=== PATIENT | female | born 1970 | race Caucasian/White ===

== ENCOUNTER → 2016-04-30 | Outpatient (CLI) | payer BC | LOC: M HL 10:49 | PROVIDERS: ATTEND Family Medicine | DX: E11.65 Type 2 diabetes mellitus with hyperglycemia (principal) ==

== ENCOUNTER 2016-07-10 18:00 | Emergency (ER) | payer BC ==
[~2016-07-10] VITALS: Ht 172.7 cm; Wt 77.1 kg
[2016-07-10] MEDS ORDERED: GLIP5TAB8 (18:13)
[2016-07-10] MEDS ORDERED: METF1000 (18:13)
[2016-07-10] MEDS ORDERED: LISI10TA4 (18:13)
[2016-07-10] MEDS ORDERED: ONDANSETRON 4MG/2ML VIAL (J2405) IV ONE (20:45)
[2016-07-10] MEDS ORDERED: KETOROLAC 30 MG/ML VIAL (J1885) IV ONE (20:45)
[2016-07-10] MEDS ORDERED: NS 1,000 ML IV ONE (20:45)
[2016-07-10 21:21] LABS: BASO # 0.1 K/mm3 (0.0-0.2); BASO % 0.5 % (0.0-1.0); EOS # 0.6 K/mm3 (0.0-0.50); EOS % 5.5 % (0.0-3.0); LARGE UNSTAINED CELL # 0.2 K/mm3 (0.0-0.4); LARGE UNSTAINED CELL % 1.4 % (0.0-4.0); LYMPH # 3.5 K/mm3 (1.5-4.5); LYMPH % 30.1 % (24.0-44.0); MEAN CORPUSCULAR HEMOGLOBIN 28.9 pg (27.0-33.0); MEAN CORPUSCULAR HGB CONC 33.1 g/dl (32.0-36.5); MEAN CORPUSCULAR VOLUME 87.4 fl (80.0-96.0); MONO # 0.5 K/mm3 (0.0-0.8); MONO % 4.5 % (0.0-5.0); NEUTROPHILS # 6.5 K/mm3 (1.8-7.7); NEUTROPHILS % 58.1 % (36.0-66.0); PLATELET COUNT, AUTOMATED 328 k/mm3 (150-450); RED CELL DISTRIBUTION WIDTH 13.3 % (11.5-14.5); WHITE BLOOD COUNT 11.2 K/mm3 (4.0-10.0)
[2016-07-10 21:54] LABS: ALBUMIN 3.7 GM/DL (3.2-5.2); ALBUMIN/GLOBULIN RATIO 1.16 (1.00-1.93); ALKALINE PHOSPHATASE 120 U/L (45-117); ALT/SGPT 25 U/L (12-78); ANION GAP 9 MEQ/L (8-16); AST/SGOT 8 U/L (15-37); BILIRUBIN,DIRECT 0.1 MG/DL (0.0-0.2); BILIRUBIN,TOTAL 0.3 MG/DL (0.2-1.0); BLOOD UREA NITROGEN 15 MG/DL (7-18); CALCIUM LEVEL 9.2 MG/DL (8.5-10.1); CARBON DIOXIDE LEVEL 27 MEQ/L (21-32); CHLORIDE LEVEL 101 MEQ/L (98-107); CREATININE FOR GFR 0.47 MG/DL (0.55-1.02); GLOMERULAR FILTRATION RATE > 60.0 (>58); GLUCOSE, FASTING 209 MG/DL (70-105); POTASSIUM SERUM 4.1 MEQ/L (3.5-5.1); SODIUM LEVEL 137 MEQ/L (136-145); TOTAL PROTEIN 6.9 GM/DL (6.4-8.2)
--- NOTE | 2016-07-10 23:10 | REPUSA ---
CLINICAL HISTORY: Abdominal pain. TECHNIQUE: Multiple axial, sagittal and coronal CT images were obtained through the abdomen and pelvi s without administration of oral or IV contrast material. COMMENTS: The liver is of uniform attenuation without mass or defect. There is no intra or extrahepatic biliary ductal dilatation. The spleen is normal. The gallbladder is within normal limits. The pancreas is of normal contour and attenuation characteristics. 15 mm left and 10 mm right adrenal nodule is noted. The kidneys are normal in size, shape and configuration. No renal or ureteral calculi are identified. There is no hydroureter or hydronephrosis. There is no evidence for appendicitis. There is no bowel wall thickening. No evidence for small or la rge bowel obstruction. There is no evidence of abdominal ascites or lymphadenopathy. There is no evidence of intrinsic or extrinsic bladder mass. There is no pelvic ascites or lymphadeno scottie. Images of the lung bases show no evidence of pleural or parenchymal mass. There are no pleural effusi ons. The bony structures are free of lytic or blastic lesions. IMPRESSION: No acute pathology. Bilateral adrenal adenomas. Thank you for your kind referral of this patient.
[2016-07-10] MEDS ORDERED: NAPR500T PO (23:19)
[2016-07-10] MEDS ORDERED: ZOFR4TAB3 PO (23:19)
[2016-07-10 23:29] VITALS: BP 127/73
== END 2016-07-10 23:30 | disposition home or self-care (01) ==
LOC: M ED 18:56
DX: R10.9 Unspecified abdominal pain (principal)
CPT/HCPCS: 74176; 80048; 80076; 81001; 83690; 85025; 87086; 96374; 96375; 99283; J1885; J2405

== ENCOUNTER → 2016-07-20 | Outpatient (REF) | payer BC ==
[~2016-07-20] MED LIST: GLIP5TAB8; LISI10TA4; METF1000; NAPR500T PO; ZOFR4TAB3 PO
== END ==
LOC: M SFHCPLAZ 10:08
PROVIDERS: ATTEND Family Medicine
DX: R10.31 Right lower quadrant pain (principal)

== ENCOUNTER → 2016-07-26 | Outpatient (CLI) | payer BC ==
[2016-07-26 08:32] LABS: AMYLASE 32 U/L (25-115)
--- NOTE | 2016-07-26 09:37 | REP ---
RIGHT UPPER QUADRANT ULTRASOUND: Real-time sonographic evaluation of right upper quadrant performed. Gallbladder demonstrates no evidence of intraluminal sludge or calculi, wall thickening, or pericholecystic fluid. There is no intrahepatic or extrahepatic biliary dilatation, common bile duct measuring 4 mm in diameter. Liver and pancreas demonstrate homogenous echotexture with no gross mass. Right kidney demonstrates no hydronephrosis or nephrolithiasis with normal size at 12.3 cm in length. IMPRESSION: Negative right upper quadrant ultrasound. Signed by Ricky Andino MD 07/26/2016 04:49 P
[2016-07-26 10:42] LABS: CONTROL LINE HPYORI INT CTR LINE PRESENT
== END ==
LOC: M RAD 07:58
PROVIDERS: ATTEND Family Medicine
DX: R10.11 Right upper quadrant pain (principal)

== ENCOUNTER → 2016-07-27 | Outpatient (REF) | payer BC | LOC: M SFHCPLAZ 12:00 | PROVIDERS: ATTEND Family Medicine | DX: E27.8 Other specified disorders of adrenal gland (principal) ==

== ENCOUNTER → 2016-08-13 | Outpatient (CLI) | payer BC | LOC: M RAD 15:06 | PROVIDERS: ATTEND Family Medicine | DX: R10.31 Right lower quadrant pain (principal) ==

== ENCOUNTER → 2016-08-19 | Outpatient (REF) | payer BC | LOC: M SFHCPLAZ 08:36 | PROVIDERS: ATTEND Family Medicine | DX: R10.31 Right lower quadrant pain (principal) ==

== ENCOUNTER → 2016-08-24 | Outpatient (CLI) | payer BC ==
[2016-08-24 08:49] LABS: ANION GAP 9 MEQ/L (8-16); BLOOD UREA NITROGEN 8 MG/DL (7-18); CALCIUM LEVEL 8.5 MG/DL (8.5-10.1); CARBON DIOXIDE LEVEL 28 MEQ/L (21-32); CHLORIDE LEVEL 102 MEQ/L (98-107); CREATININE FOR GFR 0.59 MG/DL (0.55-1.02); GLOMERULAR FILTRATION RATE > 60.0 (>58); GLUCOSE, FASTING 216 MG/DL (70-105); POTASSIUM SERUM 4.3 MEQ/L (3.5-5.1); SODIUM LEVEL 139 MEQ/L (136-145)
== END ==
LOC: M LAB 08:00
PROVIDERS: ATTEND Family Medicine
DX: R10.31 Right lower quadrant pain (principal)

== ENCOUNTER → 2016-08-28 | Outpatient (CLI) | payer BC ==
--- NOTE | 2016-08-28 15:48 | REP ---
CT study of the thoracic spine without contrast: History: Right lower quadrant abdominal pain. Technique: Helical scanning is acquired. Contiguous 4 mm axial images are reformatted. Coronal and sagittal multiplanar re-formation images are generated and reviewed. CT findings: Thoracic vertebral body heights are preserved. Alignment is normal. Disc spaces are maintained. There is minimal discogenic spurring noted at T3-4 level and at T5-6. Minimal discogenic spurring and disc calcification is seen at T9-10. There is no evidence of fracture or collapse. No neural foraminal narrowing is seen. No bony destructive lesion is appreciated. Visualized posterior ribs are unremarkable. Visualized lung giles are clear. No evidence of thoracic disc herniation is seen. Incidental note however is made of low density somewhat nodular enlargement of the adrenal glands bilaterally. This is seen on recent CT abdomen and pelvis. Impression: Minimal degenerative disc changes. No thoracic disc herniation visible. No fracture collapse or bony destructive lesion seen. Signed by Mina Tracy MD 08/28/2016 04:40 P
== END ==
LOC: M RAD 13:03
PROVIDERS: ATTEND Family Medicine
DX: R10.9 Unspecified abdominal pain (principal)

== ENCOUNTER 2017-03-21 12:10 | Emergency (ER) | payer BC ==
[~2017-03-21] VITALS: Ht 175.3 cm; Wt 77.3 kg
[~2017-03-21 12:10] MED LIST changes: -GLIP5TAB8; +GLIP5TAB8 PO; -METF1000; +METF10004 PO
[2017-03-21] MEDS ORDERED: FLUORESCEIN OPHTH 1 MG STRIP OS ONE (13:45)
[2017-03-21] MEDS ORDERED: TETRACAINE 0.5% OPHTH SOLN 4ML OS ONE (13:45)
[2017-03-21] MEDS ORDERED: ERYTHROMYCIN OPHTH OINT OS ONE (14:00)
[2017-03-21] MEDS ORDERED: CLINDAMYCIN 150 MG CAP PO ONE (14:00)
[2017-03-21] MEDS ORDERED: CLIN150C14 PO (14:01)
[2017-03-21 14:14] VITALS: BP 174/87
== END 2017-03-21 14:30 | disposition home or self-care (01) ==
LOC: M ED 12:10
DX: H10.32 Unspecified acute conjunctivitis, left eye (principal); L03.213 Periorbital cellulitis; E11.9 Type 2 diabetes mellitus without complications; I10 Essential (primary) hypertension; Z79.4 Long term (current) use of insulin; Z79.899 Other long term (current) drug therapy

== ENCOUNTER 2017-05-23 22:33 | Emergency (ER) | payer BC | END 2017-05-24 00:55 | disposition home or self-care (01) | LOC: M ED 22:33 | DX: G57.92 Unspecified mononeuropathy of left lower limb (principal); E11.9 Type 2 diabetes mellitus without complications; I10 Essential (primary) hypertension | CPT/HCPCS: 93971 ==

== ENCOUNTER → 2017-05-24 | Outpatient (REF) | payer BC ==
[2017-05-24 19:09] LABS: CREATININE, URINE 45.6 MG/DL; MAU/CREAT RATIO 594.2 MCG/MG (0.0-30.0)
== END ==
LOC: M SFHCPLAZ 17:28
DX: E11.8 Type 2 diabetes mellitus with unspecified complications (principal)
CPT/HCPCS: 82043

== ENCOUNTER 2017-05-28 10:14 | Emergency (ER) | payer BC ==
[2017-05-28] MEDS: ONDANSETRON 4MG/2ML VIAL (J2405) IV (11:02)
[2017-05-28] MEDS: KETOROLAC 30 MG/ML VIAL (J1885) IV (11:04)
[2017-05-28] MEDS: NS 1,000 ML IV (11:07)
[2017-05-28 11:09] LABS: BASO # 0.1 10^3/uL (0.0-0.2); BASO % 0.6 % (0.0-1.0); EOS # 0.4 10^3/uL (0.0-0.50); EOS % 4.3 % (0.0-3.0); HEMATOCRIT 52.1 % (36.0-47.0); IMMATURE GRANULOCYTE % 0.3 % (0-0); LYMPH # 3.3 10^3/uL (1.5-4.5); LYMPH % 34.7 % (24.0-44.0); MEAN CORPUSCULAR HEMOGLOBIN 28.3 pg (27.0-33.0); MEAN CORPUSCULAR HGB CONC 32.6 g/dl (32.0-36.5); MEAN CORPUSCULAR VOLUME 86.7 fl (80.0-96.0); MONO # 0.6 10^3/uL (0.0-0.8); MONO % 6.2 % (0.0-5.0); NEUTROPHILS # 5.2 10^3/uL (1.8-7.7); NEUTROPHILS % 53.9 % (36.0-66.0); PLATELET COUNT, AUTOMATED 318 10^3/uL (150-450); RED BLOOD COUNT 6.01 10^6/uL (4.00-5.40); RED CELL DISTRIBUTION WIDTH 13.7 % (11.5-14.5); WHITE BLOOD COUNT 9.6 10^3/uL (4.0-10.0)
[2017-05-28 11:13] LABS: KETONE, URINE AUTO RFX NEGATIVE (NEGATIVE); LEUKOCYTE ESTERASE UR AUTO RFX NEGATIVE (NEGATIVE); NITRITE, URINE AUTO RFX NEGATIVE (NEGATIVE); RBC, URINE AUTO RFX 0 /HPF (0-3); SPECIFIC GRAVITY UR AUTO RFX 1.009 (1.002-1.035); SQUAM EPITHELIAL CELL UR AURFX 0 /HPF (0-6); WBC, URINE AUTO RFX 1 /HPF (0-3)
[2017-05-28 11:45] LABS: ALBUMIN 3.8 GM/DL (3.2-5.2); ALBUMIN/GLOBULIN RATIO 0.88 (1.00-1.93); ALKALINE PHOSPHATASE 152 U/L (45-117); ALT/SGPT 23 U/L (12-78); ANION GAP 8 MEQ/L (8-16); AST/SGOT 13 U/L (7-37); BILIRUBIN,TOTAL 0.3 MG/DL (0.2-1.0); BLOOD UREA NITROGEN 15 MG/DL (7-18); CALCIUM LEVEL 9.6 MG/DL (8.5-10.1); CARBON DIOXIDE LEVEL 27 MEQ/L (21-32); CHLORIDE LEVEL 101 MEQ/L (98-107); CREATININE FOR GFR 0.49 MG/DL (0.55-1.30); GLOMERULAR FILTRATION RATE > 60.0 (>58); GLUCOSE, FASTING 186 MG/DL (70-100); POTASSIUM SERUM 4.3 MEQ/L (3.5-5.1); SODIUM LEVEL 136 MEQ/L (136-145); TOTAL PROTEIN 8.1 GM/DL (6.4-8.2)
== END 2017-05-28 12:55 | disposition home or self-care (01) ==
LOC: M ED 10:14
DX: R10.9 Unspecified abdominal pain (principal); N39.0 Urinary tract infection, site not specified; E11.9 Type 2 diabetes mellitus without complications; Z87.891 Personal history of nicotine dependence; Z79.84 Long term (current) use of oral hypoglycemic drugs; Z79.899 Other long term (current) drug therapy
CPT/HCPCS: J2405

== ENCOUNTER → 2017-05-28 | Outpatient (CLI) | payer BC | LOC: M WHC 07:59 | DX: Z12.31 Encounter for screening mammogram for malignant neoplasm of breast (principal); G62.9 Polyneuropathy, unspecified | CPT/HCPCS: 77067 ==

== ENCOUNTER → 2017-05-28 | Outpatient (CLI) | payer BC ==
[2017-05-28 10:22] LABS: ESTIMATED AVERAGE GLUCOSE 306 MG/DL (60-110); HEMOGLOBIN A1c 12.3 %
[2017-05-28 10:23] LABS: CREATININE, URINE 32.5 MG/DL; MALB URINE SIEMENS 20.4 MG/L; MAU/CREAT RATIO 62.7 MCG/MG (0.0-30.0)
[2017-05-28 10:31] LABS: VITAMIN B12 LEVEL 422 PG/ML
[2017-05-28 10:34] LABS: FOLATE 11.1 NG/ML
== END ==
LOC: M LAB 09:09
DX: E11.8 Type 2 diabetes mellitus with unspecified complications (principal); G62.9 Polyneuropathy, unspecified
CPT/HCPCS: 82746

== ENCOUNTER 2017-06-01 15:00 | Inpatient (IN) | payer BC ==
[2017-06-01 16:13] LABS: BASO # 0.1 10^3/uL (0.0-0.2); BASO % 0.7 % (0.0-1.0); EOS # 0.5 10^3/uL (0.0-0.50); EOS % 5.1 % (0.0-3.0); HEMATOCRIT 47.5 % (36.0-47.0); HEMOGLOBIN 15.7 g/dl (12.0-16.0); IMMATURE GRANULOCYTE % 0.2 % (0-3.0); LYMPH # 3.4 10^3/uL (1.5-4.5); LYMPH % 36.3 % (24.0-44.0); MEAN CORPUSCULAR HEMOGLOBIN 28.5 pg (27.0-33.0); MEAN CORPUSCULAR HGB CONC 33.1 g/dl (32.0-36.5); MEAN CORPUSCULAR VOLUME 86.4 fl (80.0-96.0); MONO # 0.6 10^3/uL (0.0-0.8); MONO % 6.7 % (0.0-5.0); NEUTROPHILS # 4.7 10^3/uL (1.8-7.7); PLATELET COUNT, AUTOMATED 300 10^3/uL (150-450); RED CELL DISTRIBUTION WIDTH 13.5 % (11.5-14.5); WHITE BLOOD COUNT 9.2 10^3/uL (4.0-10.0)
[2017-06-01 16:23] LABS: INR 0.89; PROTHROMBIN TIME 12.1 SECONDS (12.4-14.5)
[2017-06-01 16:24] LABS: PARTIAL THROMBOPLASTIN TIME 32.1 SECONDS (26.8-37.9)
[2017-06-01 16:42] LABS: ANION GAP 4 MEQ/L (8-16); BLOOD UREA NITROGEN 16 MG/DL (7-18); CALCIUM LEVEL 8.8 MG/DL (8.5-10.1); CARBON DIOXIDE LEVEL 30 MEQ/L (21-32); CHLORIDE LEVEL 106 MEQ/L (98-107); CK-MB VALUE MASS 2.7 NG/ML (0.0-3.6); CPK CREATINE PHOSPHOKINASE 54 U/L (26-192); CREATININE FOR GFR 0.47 MG/DL (0.55-1.30); GLOMERULAR FILTRATION RATE > 60.0 (>58); GLUCOSE, FASTING 166 MG/DL (70-100); POTASSIUM SERUM 3.7 MEQ/L (3.5-5.1); SODIUM LEVEL 140 MEQ/L (136-145); TROPONIN I < 0.02 NG/ML (< 0.10)
[2017-06-01] MEDS: ASPIRIN 81 MG CHEW TABLET PO (17:10)
[2017-06-01 17:29] LABS: CHOLESTEROL LEVEL 195 MG/DL (<200); CHOLESTEROL RISK RATIO 4.875 (<5); HDL CHOLESTEROL 40 MG/DL (>40); LDL CHOLESTEROL 124.6 MG/DL (<100); NON-HDL-C 155 MG/DL; TRIGLYCERIDES LEVEL 152 MG/DL (<150)
[2017-06-01] MEDS ORDERED: GLUCOSE 4 GM CHEW TABLET PO (17:30)
[2017-06-01] MEDS ORDERED: GLUCAGON FOR INJ 1 MG VIAL (J1610) SC (17:30)
[2017-06-01] MEDS: HumaLOG INSULIN (NovoLOG) PER UNIT SC ×2 (17:30→21:00)
[2017-06-01] MEDS ORDERED: DEXTROSE 50% 50 ML SYRINGE IV (17:30)
[2017-06-01 17:37] LABS: ESTIMATED AVERAGE GLUCOSE 309 MG/DL (60-110); HEMOGLOBIN A1c 12.4 %
[2017-06-01 18:43] LABS: BEDSIDE GLUCOSE 131 MG/DL (70-105)
[2017-06-01] MEDS ORDERED: ISOVUE-370 76% 100ML VIAL (Q9967) As Ordered (19:05)
[2017-06-01] MEDS: CLOPIDOGREL 300 MG TAB (PLAVIX) PO (19:37)
[2017-06-01] MEDS: METOPROLOL TART 25 MG TABLET PO ×2 (19:38→23:58)
[2017-06-01 19:40] LABS: BEDSIDE GLUCOSE 159 MG/DL (70-105)
[2017-06-01] MEDS: SIMVASTATIN 40 MG TAB PO (21:09)
[2017-06-01] MEDS: ACETAMINOPHEN TAB 650MG DOSE (2X325MG) PO (21:09)
[2017-06-01] MEDS: LISINOPRIL 20 MG TAB PO (21:09)
[2017-06-01] MEDS: HEPARIN SOD (PORCINE) 5000 UNITS/ML VIAL SC (21:10)
[2017-06-01 21:24] LABS: BEDSIDE GLUCOSE 168 MG/DL (70-105)
[2017-06-02 04:08] LABS: HEMATOCRIT 44.2 % (36.0-47.0); HEMOGLOBIN 14.4 g/dl (12.0-16.0); MEAN CORPUSCULAR HEMOGLOBIN 27.6 pg (27.0-33.0); MEAN CORPUSCULAR HGB CONC 32.6 g/dl (32.0-36.5); MEAN CORPUSCULAR VOLUME 84.8 fl (80.0-96.0); PLATELET COUNT, AUTOMATED 286 10^3/uL (150-450); RED BLOOD COUNT 5.21 10^6/uL (4.00-5.40); RED CELL DISTRIBUTION WIDTH 13.4 % (11.5-14.5); WHITE BLOOD COUNT 9.9 10^3/uL (4.0-10.0)
[2017-06-02 04:23] LABS: ANION GAP 6 MEQ/L (8-16); BLOOD UREA NITROGEN 10 MG/DL (7-18); CALCIUM LEVEL 8.2 MG/DL (8.5-10.1); CARBON DIOXIDE LEVEL 26 MEQ/L (21-32); CHLORIDE LEVEL 109 MEQ/L (98-107); CREATININE FOR GFR 0.36 MG/DL (0.55-1.30); GLOMERULAR FILTRATION RATE > 60.0 (>58); GLUCOSE, FASTING 156 MG/DL (70-100); MAGNESIUM LEVEL 2.1 MG/DL (1.8-2.4); POTASSIUM SERUM 3.6 MEQ/L (3.5-5.1); SODIUM LEVEL 141 MEQ/L (136-145)
[2017-06-02] MEDS: METOPROLOL TART 25 MG TABLET PO (06:00)
[2017-06-02] MEDS: ACETAMINOPHEN TAB 650MG DOSE (2X325MG) PO ×3 (06:38→21:06)
[2017-06-02] MEDS: HEPARIN SOD (PORCINE) 5000 UNITS/ML VIAL SC ×3 (06:39→21:06)
[2017-06-02] MEDS: CLOPIDOGREL 75 MG TAB PO (08:17)
[2017-06-02] MEDS: HumaLOG INSULIN (NovoLOG) PER UNIT SC ×4 (08:17→21:00)
[2017-06-02] MEDS: ASPIRIN 81 MG ENTERIC TAB PO (08:18)
[2017-06-02] MEDS ORDERED: ASPIRIN ENTERIC 325 MG TAB PO (09:00)
[2017-06-02 11:34] LABS: ESTIMATED AVERAGE GLUCOSE 315 MG/DL (60-110); HEMOGLOBIN A1c 12.6 %
[2017-06-02 11:42] LABS: BEDSIDE GLUCOSE 167 MG/DL (70-105)
[2017-06-02 16:53] LABS: BEDSIDE GLUCOSE 196 MG/DL (70-105)
[2017-06-02 20:47] LABS: BEDSIDE GLUCOSE 225 MG/DL (70-105)
[2017-06-02] MEDS: SIMVASTATIN 40 MG TAB PO (21:06)
[2017-06-03 05:13] LABS: HEMATOCRIT 43.8 % (36.0-47.0); HEMOGLOBIN 14.4 g/dl (12.0-16.0); MEAN CORPUSCULAR HEMOGLOBIN 28.5 pg (27.0-33.0); MEAN CORPUSCULAR HGB CONC 32.9 g/dl (32.0-36.5); MEAN CORPUSCULAR VOLUME 86.6 fl (80.0-96.0); PLATELET COUNT, AUTOMATED 258 10^3/uL (150-450); RED BLOOD COUNT 5.06 10^6/uL (4.00-5.40); RED CELL DISTRIBUTION WIDTH 13.3 % (11.5-14.5); WHITE BLOOD COUNT 7.5 10^3/uL (4.0-10.0)
[2017-06-03 05:29] LABS: ANION GAP 6 MEQ/L (8-16); BLOOD UREA NITROGEN 12 MG/DL (7-18); CALCIUM LEVEL 8.3 MG/DL (8.5-10.1); CARBON DIOXIDE LEVEL 26 MEQ/L (21-32); CHLORIDE LEVEL 107 MEQ/L (98-107); CREATININE FOR GFR 0.39 MG/DL (0.55-1.30); GLOMERULAR FILTRATION RATE > 60.0 (>58); GLUCOSE, FASTING 263 MG/DL (70-100); MAGNESIUM LEVEL 2.1 MG/DL (1.8-2.4); POTASSIUM SERUM 4.1 MEQ/L (3.5-5.1); SODIUM LEVEL 139 MEQ/L (136-145)
[2017-06-03] MEDS: HEPARIN SOD (PORCINE) 5000 UNITS/ML VIAL SC (06:21)
[2017-06-03] MEDS ORDERED: SLF 3 ML SYR IV ×2 (06:30→14:00)
[2017-06-03] MEDS: HumaLOG INSULIN (NovoLOG) PER UNIT SC ×2 (08:05→12:10)
[2017-06-03] MEDS: CLOPIDOGREL 75 MG TAB PO (08:05)
[2017-06-03] MEDS: ASPIRIN 81 MG ENTERIC TAB PO (08:05)
[2017-06-03] MEDS: MOM 30ML SUSPENSION UDC PO (09:48)
[2017-06-03] MEDS: DOCUSATE SODIUM 100 MG CAP PO (09:48)
[2017-06-03 11:52] LABS: BEDSIDE GLUCOSE 215 MG/DL (70-105)
[2017-06-03] MEDS: ONDANSETRON 4 MG ORAL DISINTEGRATING TAB (S0181) PO (12:16)
[2017-06-03] MEDS: ACETAMINOPHEN TAB 650MG DOSE (2X325MG) PO (12:17)
== END 2017-06-03 14:36 | disposition home or self-care (01) | DRG 199 ==
LOC: M ED 15:00 → M ED INP 17:05 → M PCU 20:08
DX: I16.0 Hypertensive urgency (principal); G45.9 Transient cerebral ischemic attack, unspecified; I65.21 Occlusion and stenosis of right carotid artery; E11.9 Type 2 diabetes mellitus without complications; K21.9 Gastro-esophageal reflux disease without esophagitis; Z79.82 Long term (current) use of aspirin; Z79.899 Other long term (current) drug therapy; Z87.891 Personal history of nicotine dependence; E78.5 Hyperlipidemia, unspecified; I10 Essential (primary) hypertension

== ENCOUNTER → 2017-06-12 | Outpatient (CLI) | payer BC ==
[2017-06-15 00:07] LABS: C-PEPTIDE 6.6 ng/mL (1.1-4.4); ISLET CELL ANTIBODIES Negative (Neg:<1:1)
[2017-06-15 00:07] LABS: GAD-65 AUTOANTIBODY <5.0 U/mL (0.0-5.0)
== END ==
LOC: M LAB 11:44
DX: E11.59 Type 2 diabetes mellitus with other circulatory complications (principal)
CPT/HCPCS: 84681

== ENCOUNTER 2017-06-23 12:24 | Emergency (ER) | payer BC ==
[2017-06-23] MEDS: methylPREDNISolone INJ 125 MG/2 ML VIAL (J2930) IV (12:56)
[2017-06-23] MEDS: diphenhydrAMINE INJ 50MG/ML VIAL (J1200) IV (12:56)
[2017-06-23] MEDS: HYDROCORTISONE 1% CREAM 30 GM TOP (12:56)
[2017-06-23 12:59] LABS: BASO % 0.3 % (0.0-1.0); EOS # 0.4 10^3/uL (0.0-0.50); EOS % 4.1 % (0.0-3.0); IMMATURE GRANULOCYTE % 0.3 % (0-3.0); LYMPH # 2.2 10^3/uL (1.5-4.5); LYMPH % 24.3 % (24.0-44.0); MEAN CORPUSCULAR HEMOGLOBIN 28.7 pg (27.0-33.0); MEAN CORPUSCULAR HGB CONC 33.3 g/dl (32.0-36.5); MONO # 0.6 10^3/uL (0.0-0.8); MONO % 7.1 % (0.0-5.0); NEUTROPHILS # 5.8 10^3/uL (1.8-7.7); NEUTROPHILS % 63.9 % (36.0-66.0); PLATELET COUNT, AUTOMATED 315 10^3/uL (150-450); RED BLOOD COUNT 5.58 10^6/uL (4.00-5.40); RED CELL DISTRIBUTION WIDTH 13.5 % (11.5-14.5)
[2017-06-23 13:27] LABS: ALBUMIN 3.8 GM/DL (3.2-5.2); ALBUMIN/GLOBULIN RATIO 0.97 (1.00-1.93); ALKALINE PHOSPHATASE 116 U/L (45-117); ALT/SGPT 28 U/L (12-78); ANION GAP 3 MEQ/L (8-16); AST/SGOT 11 U/L (7-37); BILIRUBIN,TOTAL 0.3 MG/DL (0.2-1.0); BLOOD UREA NITROGEN 11 MG/DL (7-18); CALCIUM LEVEL 8.8 MG/DL (8.5-10.1); CARBON DIOXIDE LEVEL 31 MEQ/L (21-32); CHLORIDE LEVEL 106 MEQ/L (98-107); CREATININE FOR GFR 0.48 MG/DL (0.55-1.30); GLOMERULAR FILTRATION RATE > 60.0 (>58); GLUCOSE, FASTING 149 MG/DL (70-100); POTASSIUM SERUM 4.3 MEQ/L (3.5-5.1); SODIUM LEVEL 140 MEQ/L (136-145); TOTAL PROTEIN 7.7 GM/DL (6.4-8.2)
== END 2017-06-23 14:44 | disposition home or self-care (01) ==
LOC: M ED 12:24
DX: R21 Rash and other nonspecific skin eruption (principal); T78.40XA Allergy, unspecified, initial encounter; E11.9 Type 2 diabetes mellitus without complications; Z79.899 Other long term (current) drug therapy; Z79.82 Long term (current) use of aspirin; Z79.01 Long term (current) use of anticoagulants; Z79.4 Long term (current) use of insulin; Z98.890 Other specified postprocedural states; Z87.09 Personal history of other diseases of the respiratory system; Z86.73 Personal history of transient ischemic attack (TIA), and cerebral infarction without residual deficits; Z87.448 Personal history of other diseases of urinary system
CPT/HCPCS: J1200

== ENCOUNTER → 2017-07-09 | Outpatient (CLI) | payer BC | LOC: M RAD 11:55 | DX: I73.9 Peripheral vascular disease, unspecified (principal) ==

== ENCOUNTER → 2017-07-31 | Outpatient (CLI) | payer BC ==
[~2017-07-31] MED LIST changes: -GLIP5TAB8 PO; +HEPARIN 1,000 UNITS/ML 10ML VIAL (FOR RADIOLOGY& DIALYSIS ONLY) As Ordered; +ISOVUE-300 61% 50ML VIAL (Q9967) As Ordered; -LISI10TA4; -METF10004 PO; +MIDAZOLAM INJ 2 MG/2 ML VIAL (J2250) As Ordered; -NAPR500T PO; -ZOFR4TAB3 PO; +fentaNYL 100 MCG/2 ML INJECTION (J3010) As Ordered
== END | disposition home or self-care (01) ==
LOC: M IRPRO 07:44
DX: I70.212 Atherosclerosis of native arteries of extremities with intermittent claudication, left leg (principal); E11.9 Type 2 diabetes mellitus without complications
CPT/HCPCS: 37221

== ENCOUNTER 2017-08-03 21:41 | Inpatient (IN) | payer BC ==
[2017-08-03] MEDS: NS 1,000 ML IV (22:15)
[2017-08-03 22:17] LABS: BASO # 0.1 10^3/uL (0.0-0.2); BASO % 0.4 % (0.0-1.0); EOS # 0.5 10^3/uL (0.0-0.50); HEMATOCRIT 43.9 % (36.0-47.0); HEMOGLOBIN 14.5 g/dl (12.0-15.5); IMMATURE GRANULOCYTE % 0.4 % (0-3.0); LYMPH # 3.4 10^3/uL (1.5-4.5); MEAN CORPUSCULAR HEMOGLOBIN 28.8 pg (27.0-33.0); MEAN CORPUSCULAR VOLUME 87.3 fl (80.0-96.0); MONO # 1.1 10^3/uL (0.0-0.8); MONO % 8.4 % (0.0-5.0); NEUTROPHILS # 7.9 10^3/uL (1.8-7.7); NEUTROPHILS % 60.8 % (36.0-66.0); PLATELET COUNT, AUTOMATED 353 10^3/uL (150-450); RED BLOOD COUNT 5.03 10^6/uL (4.00-5.40); RED CELL DISTRIBUTION WIDTH 14.6 % (11.5-14.5)
[2017-08-03 22:29] LABS: ACETAMINOPHEN LEVEL < 2.0 UG/ML (10.0-30.0); ALBUMIN 3.6 GM/DL (3.2-5.2); ALBUMIN/GLOBULIN RATIO 0.95 (1.00-1.93); ALKALINE PHOSPHATASE 120 U/L (45-117); ALT/SGPT 19 U/L (12-78); ANION GAP 7 MEQ/L (8-16); AST/SGOT 7 U/L (7-37); BILIRUBIN,DIRECT 0.1 MG/DL (0.0-0.2); BILIRUBIN,TOTAL 0.4 MG/DL (0.2-1.0); BLOOD UREA NITROGEN 12 MG/DL (7-18); CALCIUM LEVEL 8.7 MG/DL (8.5-10.1); CARBON DIOXIDE LEVEL 29 MEQ/L (21-32); CHLORIDE LEVEL 104 MEQ/L (98-107); CPK CREATINE PHOSPHOKINASE 45 U/L (26-192); CREATININE FOR GFR 0.57 MG/DL (0.55-1.30); GLOMERULAR FILTRATION RATE > 60.0 (>58); GLUCOSE, FASTING 200 MG/DL (70-100); POTASSIUM SERUM 3.8 MEQ/L (3.5-5.1); SODIUM LEVEL 140 MEQ/L (136-145); TOTAL PROTEIN 7.4 GM/DL (6.4-8.2); TROPONIN I < 0.02 NG/ML (< 0.10)
[2017-08-03 22:35] LABS: CK-MB VALUE MASS 2.1 NG/ML (<3.6); MB/CK RELATIVE INDEX 4.66 (< OR =4)
[2017-08-04] MEDS: ACETAMINOPHEN TAB 650MG DOSE (2X325MG) PO (01:45)
[2017-08-04 02:53] LABS: ESTIMATED AVERAGE GLUCOSE 220 MG/DL (60-110); HEMOGLOBIN A1c 9.3 %
[2017-08-04] MEDS ORDERED: ACETAMINOPHEN TAB 650MG DOSE (2X325MG) PO (03:15)
[2017-08-04] MEDS ORDERED: DEXTROSE 50% 50 ML SYRINGE IV (03:45)
[2017-08-04] MEDS ORDERED: GLUCAGON FOR INJ 1 MG VIAL (J1610) SC (03:45)
[2017-08-04] MEDS ORDERED: GLUCOSE 4 GM CHEW TABLET PO (03:45)
[2017-08-04 04:40] LABS: MEAN CORPUSCULAR HEMOGLOBIN 28.1 pg (27.0-33.0); MEAN CORPUSCULAR HGB CONC 32.9 g/dl (32.0-36.5); MEAN CORPUSCULAR VOLUME 85.4 fl (80.0-96.0); PLATELET COUNT, AUTOMATED 294 10^3/uL (150-450); RED BLOOD COUNT 4.45 10^6/uL (4.00-5.40); RED CELL DISTRIBUTION WIDTH 14.4 % (11.5-14.5); WHITE BLOOD COUNT 11.7 10^3/uL (4.0-10.0)
[2017-08-04 04:46] LABS: HEMOGLOBIN 12.5 g/dl (12.0-15.5)
[2017-08-04 05:01] LABS: CK-MB VALUE MASS 1.6 NG/ML (<3.6); CPK CREATINE PHOSPHOKINASE 36 U/L (26-192); MB/CK RELATIVE INDEX 4.44 (< OR =4); TROPONIN I < 0.02 NG/ML (< 0.10)
[2017-08-04 07:26] LABS: BEDSIDE GLUCOSE 124 MG/DL (70-105)
[2017-08-04] MEDS: ASPIRIN 81 MG ENTERIC TAB PO (07:35)
[2017-08-04] MEDS: NICOTINE 14 MG/24 HR TRANSDERMAL TD (07:35)
[2017-08-04] MEDS: HumaLOG INSULIN (NovoLOG) PER UNIT SC ×4 (07:35→20:25)
[2017-08-04] MEDS: CLOPIDOGREL 75 MG TAB PO (07:36)
[2017-08-04] MEDS: metFORMIN XR 500MG TAB *GLUCOPHAGE XR PO ×2 (07:36→17:47)
[2017-08-04 12:03] LABS: BEDSIDE GLUCOSE 144 MG/DL (70-105)
[2017-08-04 14:24] LABS: CK-MB VALUE MASS 1.6 NG/ML (<3.6); CPK CREATINE PHOSPHOKINASE 35 U/L (26-192); MB/CK RELATIVE INDEX 4.57 (< OR =4); TROPONIN I < 0.02 NG/ML (< 0.10)
[2017-08-04] MEDS: SITagliptin 50 MG TAB (JANUVIA) PO (17:46)
[2017-08-04 17:47] LABS: BEDSIDE GLUCOSE 109 MG/DL (70-105)
[2017-08-04] MEDS ORDERED: LISINOPRIL 20 MG TAB PO (18:00)
[2017-08-04] MEDS: DOCUSATE SODIUM 100 MG CAP PO (20:23)
[2017-08-04] MEDS: MOM 30ML SUSPENSION UDC PO (20:23)
[2017-08-04] MEDS: SIMVASTATIN 40 MG TAB PO (20:23)
[2017-08-04] MEDS: LEVEMIR (INSULIN DETEMIR) 1 UNITS/0.01ML SC (20:24)
[2017-08-04 20:34] LABS: BEDSIDE GLUCOSE 116 MG/DL (70-105)
[2017-08-04 22:24] LABS: CPK CREATINE PHOSPHOKINASE 32 U/L (26-192); TROPONIN I < 0.02 NG/ML (< 0.10)
[2017-08-04 22:25] LABS: CK-MB VALUE MASS 1.4 NG/ML (<3.6); MB/CK RELATIVE INDEX 4.37 (< OR =4)
[2017-08-05 05:41] LABS: CHOLESTEROL LEVEL 94 MG/DL (<200); CHOLESTEROL RISK RATIO 2.764 (<5); HDL CHOLESTEROL 34 MG/DL (>40); LDL CHOLESTEROL 35.8 MG/DL (<100); NON-HDL-C 60 MG/DL; TRIGLYCERIDES LEVEL 121 MG/DL (<150)
[2017-08-05] MEDS: HumaLOG INSULIN (NovoLOG) PER UNIT SC ×4 (07:30→20:38)
[2017-08-05 08:40] LABS: ANION GAP 8 MEQ/L (8-16); BLOOD UREA NITROGEN 12 MG/DL (7-18); CALCIUM LEVEL 8.6 MG/DL (8.5-10.1); CARBON DIOXIDE LEVEL 26 MEQ/L (21-32); CHLORIDE LEVEL 107 MEQ/L (98-107); CREATININE FOR GFR 0.43 MG/DL (0.55-1.30); GLOMERULAR FILTRATION RATE > 60.0 (>58); GLUCOSE, FASTING 113 MG/DL (70-100); SODIUM LEVEL 141 MEQ/L (136-145)
[2017-08-05] MEDS: CLOPIDOGREL 75 MG TAB PO (08:58)
[2017-08-05] MEDS: ASPIRIN 81 MG ENTERIC TAB PO (08:58)
[2017-08-05] MEDS: metFORMIN XR 500MG TAB *GLUCOPHAGE XR PO (08:58)
[2017-08-05] MEDS: DOCUSATE SODIUM 100 MG CAP PO ×2 (08:58→20:42)
[2017-08-05] MEDS: INFLUENZA QUADRIVALENT PF VACCINE 0.5ML SYRINGE (90686) IM (08:58)
[2017-08-05] MEDS: NICOTINE 14 MG/24 HR TRANSDERMAL TD (08:58)
[2017-08-05] MEDS: ENOXAPARIN 40 MG/0.4 ML SYRINGE (J1650) SC (09:00)
[2017-08-05] MEDS ORDERED: ISOVUE-370 76% 100ML VIAL (Q9967) As Ordered (09:24)
[2017-08-05 11:36] LABS: BEDSIDE GLUCOSE 122 MG/DL (70-105)
[2017-08-05 12:47] LABS: BEDSIDE GLUCOSE 106 MG/DL (70-105)
[2017-08-05] MEDS: SITagliptin 50 MG TAB (JANUVIA) PO (17:46)
[2017-08-05 17:57] LABS: BEDSIDE GLUCOSE 116 MG/DL (70-105)
[2017-08-05] MEDS: SIMVASTATIN 40 MG TAB PO (20:42)
[2017-08-05] MEDS: LEVEMIR (INSULIN DETEMIR) 1 UNITS/0.01ML SC (20:42)
[2017-08-05 20:45] LABS: BEDSIDE GLUCOSE 186 MG/DL (70-105)
[2017-08-06 05:46] LABS: HEMATOCRIT 40.1 % (36.0-47.0); HEMOGLOBIN 13.3 g/dl (12.0-15.5); MEAN CORPUSCULAR HEMOGLOBIN 28.9 pg (27.0-33.0); MEAN CORPUSCULAR HGB CONC 33.2 g/dl (32.0-36.5); PLATELET COUNT, AUTOMATED 315 10^3/uL (150-450); RED BLOOD COUNT 4.61 10^6/uL (4.00-5.40); RED CELL DISTRIBUTION WIDTH 14.3 % (11.5-14.5)
[2017-08-06 06:14] LABS: ANION GAP 2 MEQ/L (8-16); BLOOD UREA NITROGEN 13 MG/DL (7-18); CALCIUM LEVEL 8.4 MG/DL (8.5-10.1); CARBON DIOXIDE LEVEL 30 MEQ/L (21-32); CHLORIDE LEVEL 107 MEQ/L (98-107); CREATININE FOR GFR 0.55 MG/DL (0.55-1.30); GLOMERULAR FILTRATION RATE > 60.0 (>58); GLUCOSE, FASTING 195 MG/DL (70-100); POTASSIUM SERUM 4.2 MEQ/L (3.5-5.1); SODIUM LEVEL 139 MEQ/L (136-145)
[2017-08-06] MEDS: HumaLOG INSULIN (NovoLOG) PER UNIT SC ×4 (08:13→21:00)
[2017-08-06] MEDS: NICOTINE 14 MG/24 HR TRANSDERMAL TD (08:14)
[2017-08-06] MEDS: DOCUSATE SODIUM 100 MG CAP PO ×2 (08:14→21:22)
[2017-08-06] MEDS: CLOPIDOGREL 75 MG TAB PO (08:14)
[2017-08-06] MEDS: ASPIRIN 81 MG ENTERIC TAB PO (08:14)
[2017-08-06] MEDS: ENOXAPARIN 40 MG/0.4 ML SYRINGE (J1650) SC (08:15)
[2017-08-06] MEDS ORDERED: SLF 3 ML SYR IV (11:15)
[2017-08-06 12:20] LABS: BEDSIDE GLUCOSE 143 MG/DL (70-105)
[2017-08-06] MEDS: SLF 3 ML SYR IV ×2 (13:16→21:22)
[2017-08-06 17:02] LABS: BEDSIDE GLUCOSE 205 MG/DL (70-105)
[2017-08-06] MEDS: SITagliptin 50 MG TAB (JANUVIA) PO (17:10)
[2017-08-06] MEDS: SIMVASTATIN 40 MG TAB PO (21:22)
[2017-08-06] MEDS: LEVEMIR (INSULIN DETEMIR) 1 UNITS/0.01ML SC (21:23)
[2017-08-06 21:25] LABS: BEDSIDE GLUCOSE 233 MG/DL (70-105)
[2017-08-07] MEDS: SLF 3 ML SYR IV ×2 (06:00→13:00)
[2017-08-07 06:12] LABS: HEMATOCRIT 40.8 % (36.0-47.0); HEMOGLOBIN 13.3 g/dl (12.0-15.5); MEAN CORPUSCULAR HEMOGLOBIN 28.1 pg (27.0-33.0); MEAN CORPUSCULAR HGB CONC 32.6 g/dl (32.0-36.5); MEAN CORPUSCULAR VOLUME 86.1 fl (80.0-96.0); PLATELET COUNT, AUTOMATED 358 10^3/uL (150-450); RED BLOOD COUNT 4.74 10^6/uL (4.00-5.40); RED CELL DISTRIBUTION WIDTH 14.1 % (11.5-14.5); WHITE BLOOD COUNT 8.9 10^3/uL (4.0-10.0)
[2017-08-07 06:20] LABS: ANION GAP 3 MEQ/L (8-16); BLOOD UREA NITROGEN 14 MG/DL (7-18); CALCIUM LEVEL 8.2 MG/DL (8.5-10.1); CARBON DIOXIDE LEVEL 28 MEQ/L (21-32); CHLORIDE LEVEL 109 MEQ/L (98-107); CREATININE FOR GFR 0.59 MG/DL (0.55-1.30); GLOMERULAR FILTRATION RATE > 60.0 (>58); GLUCOSE, FASTING 211 MG/DL (70-100); POTASSIUM SERUM 4.6 MEQ/L (3.5-5.1); SODIUM LEVEL 140 MEQ/L (136-145)
[2017-08-07] MEDS: NICOTINE 14 MG/24 HR TRANSDERMAL TD (07:49)
[2017-08-07] MEDS: ENOXAPARIN 40 MG/0.4 ML SYRINGE (J1650) SC (07:50)
[2017-08-07] MEDS: DOCUSATE SODIUM 100 MG CAP PO (07:50)
[2017-08-07] MEDS: HumaLOG INSULIN (NovoLOG) PER UNIT SC ×2 (07:50→12:59)
[2017-08-07] MEDS: CLOPIDOGREL 75 MG TAB PO (07:50)
[2017-08-07] MEDS: ASPIRIN 81 MG ENTERIC TAB PO (07:50)
[2017-08-07 12:49] LABS: BEDSIDE GLUCOSE 192 MG/DL (70-105)
[2017-08-07] MEDS ORDERED: LEVEMIR (INSULIN DETEMIR) 1 UNITS/0.01ML SC (21:00)
== END 2017-08-07 13:59 | disposition home or self-care (01) | DRG 46 ==
LOC: M ED INP 08-04 03:12 → M ED 21:41 → M PCU 08-04 03:48
DX: I65.21 Occlusion and stenosis of right carotid artery (principal); I10 Essential (primary) hypertension; F17.200 Nicotine dependence, unspecified, uncomplicated; I73.9 Peripheral vascular disease, unspecified; E11.9 Type 2 diabetes mellitus without complications; Z79.82 Long term (current) use of aspirin; Z79.899 Other long term (current) drug therapy

== ENCOUNTER → 2017-08-29 | Outpatient (CLI) | payer BC | END | disposition home or self-care (01) | LOC: M IRPRO 06:43 | DX: I63.59 Cerebral infarction due to unspecified occlusion or stenosis of other cerebral artery (principal); I10 Essential (primary) hypertension; E11.9 Type 2 diabetes mellitus without complications; E78.00 Pure hypercholesterolemia, unspecified | CPT/HCPCS: 36223 ==

== ENCOUNTER 2018-01-06 10:23 | Emergency (ER) | payer BC ==
[2018-01-06 11:14] LABS: CONTROL LINE UCG INT CTR LINE PRESENT; URINE PREG TEST NEGATIVE (NEGATIVE)
[2018-01-06 11:17] LABS: KETONE, URINE AUTO RFX NEGATIVE (NEGATIVE); LEUKOCYTE ESTERASE UR AUTO RFX 2+ (NEGATIVE); NITRITE, URINE AUTO RFX NEGATIVE (NEGATIVE); RBC, URINE AUTO RFX 4 /HPF (0-3); SPECIFIC GRAVITY UR AUTO RFX 1.027 (1.002-1.035); SQUAM EPITHELIAL CELL UR AURFX 0 /HPF (0-6); WBC, URINE AUTO RFX 178 /HPF (0-3)
== END 2018-01-06 11:32 | disposition home or self-care (01) ==
LOC: M ED 10:23
DX: N30.90 Cystitis, unspecified without hematuria (principal); E11.9 Type 2 diabetes mellitus without complications; I10 Essential (primary) hypertension; E78.00 Pure hypercholesterolemia, unspecified; F41.9 Anxiety disorder, unspecified; Z86.73 Personal history of transient ischemic attack (TIA), and cerebral infarction without residual deficits; Z87.442 Personal history of urinary calculi; Z79.899 Other long term (current) drug therapy; Z79.82 Long term (current) use of aspirin; Z79.02 Long term (current) use of antithrombotics/antiplatelets; F17.210 Nicotine dependence, cigarettes, uncomplicated
CPT/HCPCS: 84703

== ENCOUNTER 2018-01-15 11:03 | Emergency (ER) | payer BC | END 2018-01-15 12:56 | disposition home or self-care (01) | LOC: M ED 11:03 | DX: I83.811 Varicose veins of right lower extremity with pain (principal); I73.9 Peripheral vascular disease, unspecified; Z87.891 Personal history of nicotine dependence; Z79.899 Other long term (current) drug therapy; Z79.82 Long term (current) use of aspirin; Z79.84 Long term (current) use of oral hypoglycemic drugs; Z79.02 Long term (current) use of antithrombotics/antiplatelets | CPT/HCPCS: 93971 ==

== ENCOUNTER → 2018-02-07 | Outpatient (CLI) | payer BC | LOC: M RAD 07:58 | DX: I65.23 Occlusion and stenosis of bilateral carotid arteries (principal) | CPT/HCPCS: 93880 ==

== ENCOUNTER → 2018-02-19 | Outpatient (CLI) | payer BC ==
[2018-02-19 12:02] LABS: ESTIMATED AVERAGE GLUCOSE 272 MG/DL (60-110); HEMOGLOBIN A1c 11.1 %
[2018-02-19 12:15] LABS: ANION GAP 8 MEQ/L (8-16); BLOOD UREA NITROGEN 12 MG/DL (7-18); CALCIUM LEVEL 9.3 MG/DL (8.5-10.1); CARBON DIOXIDE LEVEL 29 MEQ/L (21-32); CHLORIDE LEVEL 99 MEQ/L (98-107); CREATININE FOR GFR 0.53 MG/DL (0.55-1.30); GLOMERULAR FILTRATION RATE > 60.0 (>58); GLUCOSE, FASTING 284 MG/DL (70-100); POTASSIUM SERUM 4.6 MEQ/L (3.5-5.1); SODIUM LEVEL 136 MEQ/L (136-145)
== END ==
LOC: M LAB 10:31
DX: E11.65 Type 2 diabetes mellitus with hyperglycemia (principal); M79.604 Pain in right leg
CPT/HCPCS: 83036

== ENCOUNTER → 2018-03-12 | Outpatient (CLI) | payer BC ==
[~2018-03-12] MED LIST changes: +LIDOCAINE 2% MDV 20 ML VIAL As Ordered
== END | disposition home or self-care (01) ==
LOC: M IRPRO 07:48
DX: I70.211 Atherosclerosis of native arteries of extremities with intermittent claudication, right leg (principal); E11.9 Type 2 diabetes mellitus without complications; I10 Essential (primary) hypertension; E78.00 Pure hypercholesterolemia, unspecified; I65.29 Occlusion and stenosis of unspecified carotid artery; Z87.891 Personal history of nicotine dependence
CPT/HCPCS: 37224

== ENCOUNTER 2018-03-30 18:03 | Emergency (ER) | payer BC ==
[2018-03-30 18:46] LABS: BASO % 0.5 % (0.0-1.0); EOS # 0.6 10^3/uL (0.0-0.50); EOS % 7.6 % (0.0-3.0); HEMATOCRIT 41.9 % (36.0-47.0); HEMOGLOBIN 13.6 g/dl (12.0-15.5); IMMATURE GRANULOCYTE % 0.2 % (0-3.0); LYMPH # 3.2 10^3/uL (1.5-4.5); LYMPH % 38.2 % (24.0-44.0); MEAN CORPUSCULAR HEMOGLOBIN 28.6 pg (27.0-33.0); MEAN CORPUSCULAR HGB CONC 32.5 g/dl (32.0-36.5); MEAN CORPUSCULAR VOLUME 88.2 fl (80.0-96.0); MONO # 0.7 10^3/uL (0.0-0.8); MONO % 7.8 % (0.0-5.0); NEUTROPHILS # 3.8 10^3/uL (1.8-7.7); NEUTROPHILS % 45.7 % (36.0-66.0); PLATELET COUNT, AUTOMATED 307 10^3/uL (150-450); RED BLOOD COUNT 4.75 10^6/uL (4.00-5.40); RED CELL DISTRIBUTION WIDTH 12.6 % (11.5-14.5); WHITE BLOOD COUNT 8.4 10^3/uL (4.0-10.0)
[2018-03-30 18:56] LABS: INR 0.87
[2018-03-30 18:57] LABS: PARTIAL THROMBOPLASTIN TIME 29.9 SECONDS (25.4-37.6)
[2018-03-30 19:07] LABS: CONTROL LINE HCG INT CTR LINE PRESENT; HCG, SERUM QUALITATIVE NEGATIVE (NEGATIVE)
[2018-03-30 19:08] LABS: ANION GAP 8 MEQ/L (8-16); BLOOD UREA NITROGEN 14 MG/DL (7-18); CALCIUM LEVEL 8.7 MG/DL (8.5-10.1); CARBON DIOXIDE LEVEL 28 MEQ/L (21-32); CHLORIDE LEVEL 104 MEQ/L (98-107); CPK CREATINE PHOSPHOKINASE 122 U/L (26-192); CREATININE FOR GFR 0.59 MG/DL (0.55-1.30); GLOMERULAR FILTRATION RATE > 60.0 (>58); GLUCOSE, FASTING 161 MG/DL (70-100); MB/CK RELATIVE INDEX 6.56 (< OR =4); POTASSIUM SERUM 3.5 MEQ/L (3.5-5.1); SODIUM LEVEL 140 MEQ/L (136-145); TROPONIN I < 0.02 NG/ML (< 0.10)
[2018-03-30] MEDS: hydrALAZINE INJ 20 MG/ML VIAL IV (19:13)
[2018-03-30] MEDS ORDERED: ISOVUE-370 76% 100ML VIAL (Q9967) As Ordered (19:28)
[2018-03-30] MEDS: ACETAMINOPHEN TAB 650MG DOSE (2X325MG) PO (19:40)
== END 2018-03-30 21:27 | disposition home or self-care (01) ==
LOC: M ED 18:03
DX: I16.0 Hypertensive urgency (principal); E11.9 Type 2 diabetes mellitus without complications; E78.5 Hyperlipidemia, unspecified; Z86.73 Personal history of transient ischemic attack (TIA), and cerebral infarction without residual deficits; Z79.899 Other long term (current) drug therapy; Z79.82 Long term (current) use of aspirin; Z79.84 Long term (current) use of oral hypoglycemic drugs
CPT/HCPCS: Q9967

== ENCOUNTER 2018-03-31 21:09 | Emergency (ER) | payer BC ==
[2018-03-31] MEDS: CHLORTHALIDONE 12.5MG PER 1/2 TABLET PO (22:18)
[2018-03-31] MEDS: METOPROLOL TART 50 MG TAB PO (22:18)
== END 2018-03-31 23:36 | disposition home or self-care (01) ==
LOC: M ED 21:09
DX: I10 Essential (primary) hypertension (principal); E11.9 Type 2 diabetes mellitus without complications; I73.9 Peripheral vascular disease, unspecified; F17.210 Nicotine dependence, cigarettes, uncomplicated
CPT/HCPCS: 99284

== ENCOUNTER 2018-04-01 19:51 | Emergency (ER) | payer BC ==
[2018-04-01 20:15] LABS: BASO # 0.1 10^3/uL (0.0-0.2); BASO % 0.6 % (0.0-1.0); EOS # 0.5 10^3/uL (0.0-0.50); EOS % 6.3 % (0.0-3.0); HEMATOCRIT 42.8 % (36.0-47.0); HEMOGLOBIN 14.2 g/dl (12.0-15.5); IMMATURE GRANULOCYTE % 0.2 % (0-3.0); LYMPH # 3.5 10^3/uL (1.5-4.5); LYMPH % 41.1 % (24.0-44.0); MEAN CORPUSCULAR HGB CONC 33.2 g/dl (32.0-36.5); MEAN CORPUSCULAR VOLUME 87.5 fl (80.0-96.0); MONO # 0.7 10^3/uL (0.0-0.8); MONO % 7.9 % (0.0-5.0); NEUTROPHILS # 3.7 10^3/uL (1.8-7.7); NEUTROPHILS % 43.9 % (36.0-66.0); PLATELET COUNT, AUTOMATED 339 10^3/uL (150-450); RED BLOOD COUNT 4.89 10^6/uL (4.00-5.40); RED CELL DISTRIBUTION WIDTH 12.8 % (11.5-14.5); WHITE BLOOD COUNT 8.5 10^3/uL (4.0-10.0)
[2018-04-01] MEDS: LISINOPRIL 10 MG TAB PO ×2 (20:30)
[2018-04-01 20:31] LABS: D-DIMER QUANT 286.65 ng/ml (<500)
[2018-04-01 20:50] LABS: ANION GAP 8 MEQ/L (8-16); BLOOD UREA NITROGEN 15 MG/DL (7-18); CALCIUM LEVEL 8.9 MG/DL (8.5-10.1); CARBON DIOXIDE LEVEL 28 MEQ/L (21-32); CHLORIDE LEVEL 102 MEQ/L (98-107); CPK CREATINE PHOSPHOKINASE 77 U/L (26-192); CREATININE FOR GFR 0.72 MG/DL (0.55-1.30); GLOMERULAR FILTRATION RATE > 60.0 (>58); GLUCOSE, FASTING 271 MG/DL (70-100); MB/CK RELATIVE INDEX 5.84 (< OR =4); POTASSIUM SERUM 3.6 MEQ/L (3.5-5.1); SODIUM LEVEL 138 MEQ/L (136-145); TROPONIN I < 0.02 NG/ML (< 0.10)
== END 2018-04-02 00:12 | disposition home or self-care (01) ==
LOC: M ED 04-02 00:12
DX: I10 Essential (primary) hypertension (principal); F41.9 Anxiety disorder, unspecified; E11.9 Type 2 diabetes mellitus without complications; Z79.4 Long term (current) use of insulin; F17.210 Nicotine dependence, cigarettes, uncomplicated; Z79.02 Long term (current) use of antithrombotics/antiplatelets
CPT/HCPCS: 71045

== ENCOUNTER 2018-04-01 22:58 | Inpatient (IN) | payer BC ==
[2018-04-02 00:42] LABS: INR 0.87; PROTHROMBIN TIME 11.9 SECONDS (12.1-14.4)
[2018-04-02 00:43] LABS: PARTIAL THROMBOPLASTIN TIME 29.8 SECONDS (25.4-37.6)
[2018-04-02 00:46] LABS: BASO # 0.1 10^3/uL (0.0-0.2); BASO % 0.6 % (0.0-1.0); EOS # 0.5 10^3/uL (0.0-0.50); EOS % 5.1 % (0.0-3.0); HEMATOCRIT 43.8 % (36.0-47.0); HEMOGLOBIN 14.2 g/dl (12.0-15.5); IMMATURE GRANULOCYTE % 0.8 % (0-3.0); LYMPH % 22.1 % (24.0-44.0); MEAN CORPUSCULAR HEMOGLOBIN 28.6 pg (27.0-33.0); MEAN CORPUSCULAR HGB CONC 32.4 g/dl (32.0-36.5); MEAN CORPUSCULAR VOLUME 88.3 fl (80.0-96.0); MONO # 0.6 10^3/uL (0.0-0.8); MONO % 7.2 % (0.0-5.0); NEUTROPHILS # 5.7 10^3/uL (1.8-7.7); NEUTROPHILS % 64.2 % (36.0-66.0); PLATELET COUNT, AUTOMATED 314 10^3/uL (150-450); RED BLOOD COUNT 4.96 10^6/uL (4.00-5.40); RED CELL DISTRIBUTION WIDTH 12.8 % (11.5-14.5); WHITE BLOOD COUNT 8.9 10^3/uL (4.0-10.0)
[2018-04-02 00:56] LABS: ANION GAP 7 MEQ/L (8-16); BLOOD UREA NITROGEN 14 MG/DL (7-18); CARBON DIOXIDE LEVEL 29 MEQ/L (21-32); CHLORIDE LEVEL 104 MEQ/L (98-107); CPK CREATINE PHOSPHOKINASE 71 U/L (26-192); CREATININE FOR GFR 0.62 MG/DL (0.55-1.30); GLOMERULAR FILTRATION RATE > 60.0 (>58); GLUCOSE, FASTING 244 MG/DL (70-100); MB/CK RELATIVE INDEX 6.06 (< OR =4); POTASSIUM SERUM 4.1 MEQ/L (3.5-5.1); SODIUM LEVEL 140 MEQ/L (136-145); TROPONIN I < 0.02 NG/ML (< 0.10)
[2018-04-02] MEDS ORDERED: GLUCOSE 4 GM CHEW TABLET PO (02:15)
[2018-04-02] MEDS ORDERED: GLUCAGON FOR INJ 1 MG VIAL (J1610) SC (02:15)
[2018-04-02] MEDS ORDERED: DEXTROSE 50% 50 ML SYRINGE IV (02:15)
[2018-04-02] MEDS: HumaLOG INSULIN (NovoLOG) PER UNIT SC ×4 (09:36→20:32)
[2018-04-02] MEDS: ASPIRIN 81 MG ENTERIC TAB PO (09:36)
[2018-04-02] MEDS: CLOPIDOGREL 75 MG TAB PO (09:36)
[2018-04-02 09:40] LABS: BEDSIDE GLUCOSE 194 MG/DL (70-105)
[2018-04-02 11:27] LABS: BEDSIDE GLUCOSE 217 MG/DL (70-105)
[2018-04-02] MEDS ORDERED: SLF 3 ML SYR IV (11:45)
[2018-04-02] MEDS: SLF 3 ML SYR IV ×2 (12:58→20:32)
[2018-04-02 13:32] LABS: FREE THYROXINE INDEX 2.9 % (1.3-4.8); T UPTAKE 35 % (30-39); THYROXINE (T4) 8.4 UG/DL (4.5-12.0)
[2018-04-02 15:29] LABS: BEDSIDE GLUCOSE 208 MG/DL (70-105)
[2018-04-02 17:59] LABS: BEDSIDE GLUCOSE 201 MG/DL (70-105)
[2018-04-02] MEDS: SIMVASTATIN 40 MG TAB PO (20:29)
[2018-04-02] MEDS: LEVEMIR (INSULIN DETEMIR) 1 UNITS/0.01ML SC (20:29)
[2018-04-02 21:00] LABS: BEDSIDE GLUCOSE 289 MG/DL (70-105)
[2018-04-03 05:33] LABS: BASO # 0.1 10^3/uL (0.0-0.2); BASO % 0.8 % (0.0-1.0); EOS # 0.5 10^3/uL (0.0-0.50); EOS % 6.7 % (0.0-3.0); HEMATOCRIT 42.7 % (36.0-47.0); HEMOGLOBIN 14.1 g/dl (12.0-15.5); IMMATURE GRANULOCYTE % 0.3 % (0-3.0); LYMPH # 3.1 10^3/uL (1.5-4.5); LYMPH % 40.5 % (24.0-44.0); MEAN CORPUSCULAR HEMOGLOBIN 28.4 pg (27.0-33.0); MEAN CORPUSCULAR VOLUME 85.9 fl (80.0-96.0); MONO # 0.7 10^3/uL (0.0-0.8); MONO % 9.1 % (0.0-5.0); NEUTROPHILS # 3.3 10^3/uL (1.8-7.7); NEUTROPHILS % 42.6 % (36.0-66.0); PLATELET COUNT, AUTOMATED 290 10^3/uL (150-450); RED BLOOD COUNT 4.97 10^6/uL (4.00-5.40); RED CELL DISTRIBUTION WIDTH 12.8 % (11.5-14.5); WHITE BLOOD COUNT 7.7 10^3/uL (4.0-10.0)
[2018-04-03 05:51] LABS: ANION GAP 7 MEQ/L (8-16); BLOOD UREA NITROGEN 20 MG/DL (7-18); CALCIUM LEVEL 8.6 MG/DL (8.5-10.1); CARBON DIOXIDE LEVEL 29 MEQ/L (21-32); CHLORIDE LEVEL 102 MEQ/L (98-107); CREATININE FOR GFR 0.63 MG/DL (0.55-1.30); GLOMERULAR FILTRATION RATE > 60.0 (>58); GLUCOSE, FASTING 236 MG/DL (70-100); POTASSIUM SERUM 4.1 MEQ/L (3.5-5.1); SODIUM LEVEL 138 MEQ/L (136-145)
[2018-04-03] MEDS: SLF 3 ML SYR IV ×3 (06:00→22:00)
[2018-04-03] MEDS: CLOPIDOGREL 75 MG TAB PO (09:02)
[2018-04-03] MEDS: ASPIRIN 81 MG ENTERIC TAB PO (09:02)
[2018-04-03] MEDS: HumaLOG INSULIN (NovoLOG) PER UNIT SC ×4 (09:03→22:19)
[2018-04-03] MEDS ORDERED: ISOVUE-370 76% 100ML VIAL (Q9967) As Ordered (09:19)
[2018-04-03 11:10] LABS: BEDSIDE GLUCOSE 246 MG/DL (70-105)
[2018-04-03 16:36] LABS: BEDSIDE GLUCOSE 292 MG/DL (70-105)
[2018-04-03] MEDS: MECLIZINE 25 MG TABLET PO (16:57)
[2018-04-03] MEDS: ACETAMINOPHEN TAB 650MG DOSE (2X325MG) PO (19:47)
[2018-04-03 20:01] LABS: BEDSIDE GLUCOSE 259 MG/DL (70-105)
[2018-04-03] MEDS: SIMVASTATIN 40 MG TAB PO (22:18)
[2018-04-03] MEDS: LEVEMIR (INSULIN DETEMIR) 1 UNITS/0.01ML SC (22:19)
[2018-04-04 05:20] LABS: BASO % 0.4 % (0.0-1.0); EOS # 0.5 10^3/uL (0.0-0.50); EOS % 6.3 % (0.0-3.0); HEMATOCRIT 44.4 % (36.0-47.0); HEMOGLOBIN 14.4 g/dl (12.0-15.5); IMMATURE GRANULOCYTE % 0.1 % (0-3.0); LYMPH # 2.8 10^3/uL (1.5-4.5); LYMPH % 39.2 % (24.0-44.0); MEAN CORPUSCULAR HEMOGLOBIN 28.3 pg (27.0-33.0); MEAN CORPUSCULAR HGB CONC 32.4 g/dl (32.0-36.5); MEAN CORPUSCULAR VOLUME 87.4 fl (80.0-96.0); MONO # 0.6 10^3/uL (0.0-0.8); MONO % 8.6 % (0.0-5.0); NEUTROPHILS # 3.3 10^3/uL (1.8-7.7); NEUTROPHILS % 45.4 % (36.0-66.0); PLATELET COUNT, AUTOMATED 303 10^3/uL (150-450); RED BLOOD COUNT 5.08 10^6/uL (4.00-5.40); RED CELL DISTRIBUTION WIDTH 12.7 % (11.5-14.5); WHITE BLOOD COUNT 7.3 10^3/uL (4.0-10.0)
[2018-04-04 05:41] LABS: ANION GAP 6 MEQ/L (8-16); BLOOD UREA NITROGEN 18 MG/DL (7-18); CALCIUM LEVEL 8.3 MG/DL (8.5-10.1); CARBON DIOXIDE LEVEL 28 MEQ/L (21-32); CHLORIDE LEVEL 103 MEQ/L (98-107); CREATININE FOR GFR 0.62 MG/DL (0.55-1.30); GLOMERULAR FILTRATION RATE > 60.0 (>58); GLUCOSE, FASTING 254 MG/DL (70-100); SODIUM LEVEL 137 MEQ/L (136-145)
[2018-04-04] MEDS: SLF 3 ML SYR IV ×3 (06:00→20:53)
[2018-04-04] MEDS: HumaLOG INSULIN (NovoLOG) PER UNIT SC ×4 (07:35→20:52)
[2018-04-04] MEDS: CLOPIDOGREL 75 MG TAB PO (08:42)
[2018-04-04] MEDS: ASPIRIN 81 MG ENTERIC TAB PO (08:42)
[2018-04-04 10:34] LABS: CPK CREATINE PHOSPHOKINASE 45 U/L (26-192); MB/CK RELATIVE INDEX 5.33 (< OR =4)
[2018-04-04 11:05] LABS: TROPONIN I < 0.02 NG/ML (< 0.10)
[2018-04-04 12:02] LABS: BEDSIDE GLUCOSE 298 MG/DL (70-105)
[2018-04-04] MEDS: MECLIZINE 25 MG TABLET PO (16:45)
[2018-04-04 16:46] LABS: BEDSIDE GLUCOSE 264 MG/DL (70-105)
[2018-04-04 20:31] LABS: BEDSIDE GLUCOSE 269 MG/DL (70-105)
[2018-04-04] MEDS: LEVEMIR (INSULIN DETEMIR) 1 UNITS/0.01ML SC (20:52)
[2018-04-04] MEDS: SIMVASTATIN 40 MG TAB PO (20:52)
[2018-04-05 05:20] LABS: BASO % 0.5 % (0.0-1.0); EOS # 0.5 10^3/uL (0.0-0.50); EOS % 7.1 % (0.0-3.0); HEMATOCRIT 45.4 % (36.0-47.0); HEMOGLOBIN 14.8 g/dl (12.0-15.5); IMMATURE GRANULOCYTE % 0.3 % (0-3.0); LYMPH # 2.8 10^3/uL (1.5-4.5); LYMPH % 37.4 % (24.0-44.0); MEAN CORPUSCULAR HEMOGLOBIN 28.8 pg (27.0-33.0); MEAN CORPUSCULAR HGB CONC 32.6 g/dl (32.0-36.5); MEAN CORPUSCULAR VOLUME 88.3 fl (80.0-96.0); MONO # 0.7 10^3/uL (0.0-0.8); MONO % 8.8 % (0.0-5.0); NEUTROPHILS # 3.4 10^3/uL (1.8-7.7); NEUTROPHILS % 45.9 % (36.0-66.0); PLATELET COUNT, AUTOMATED 304 10^3/uL (150-450); RED BLOOD COUNT 5.14 10^6/uL (4.00-5.40); RED CELL DISTRIBUTION WIDTH 12.7 % (11.5-14.5); WHITE BLOOD COUNT 7.4 10^3/uL (4.0-10.0)
[2018-04-05 05:41] LABS: ANION GAP 5 MEQ/L (8-16); BLOOD UREA NITROGEN 20 MG/DL (7-18); CALCIUM LEVEL 8.2 MG/DL (8.5-10.1); CARBON DIOXIDE LEVEL 30 MEQ/L (21-32); CHLORIDE LEVEL 104 MEQ/L (98-107); CREATININE FOR GFR 0.68 MG/DL (0.55-1.30); GLOMERULAR FILTRATION RATE > 60.0 (>58); GLUCOSE, FASTING 276 MG/DL (70-100); POTASSIUM SERUM 4.4 MEQ/L (3.5-5.1); SODIUM LEVEL 139 MEQ/L (136-145)
[2018-04-05] MEDS: SLF 3 ML SYR IV ×3 (06:00→20:37)
[2018-04-05] MEDS: HumaLOG INSULIN (NovoLOG) PER UNIT SC ×4 (07:58→20:37)
[2018-04-05] MEDS: CLOPIDOGREL 75 MG TAB PO (09:11)
[2018-04-05] MEDS: ASPIRIN 81 MG ENTERIC TAB PO (09:11)
[2018-04-05 11:41] LABS: BEDSIDE GLUCOSE 303 MG/DL (70-105)
[2018-04-05] MEDS: SERTRALINE HCL 25 MG TABLET PO (13:19)
[2018-04-05 16:45] LABS: BEDSIDE GLUCOSE 314 MG/DL (70-105)
[2018-04-05 18:00] LABS: BEDSIDE GLUCOSE 291 MG/DL (70-105)
[2018-04-05] MEDS: hydrALAZINE INJ 20 MG/ML VIAL IV (19:47)
[2018-04-05 20:10] LABS: BEDSIDE GLUCOSE 320 MG/DL (70-105)
[2018-04-05] MEDS: SIMVASTATIN 40 MG TAB PO (20:36)
[2018-04-05] MEDS: LISINOPRIL 5 MG TAB PO (20:36)
[2018-04-05] MEDS: LEVEMIR (INSULIN DETEMIR) 1 UNITS/0.01ML SC (20:36)
[2018-04-06 04:37] LABS: BASO # 0.1 10^3/uL (0.0-0.2); BASO % 0.7 % (0.0-1.0); EOS # 0.5 10^3/uL (0.0-0.50); EOS % 6.4 % (0.0-3.0); HEMATOCRIT 41.7 % (36.0-47.0); HEMOGLOBIN 14.1 g/dl (12.0-15.5); IMMATURE GRANULOCYTE % 0.2 % (0-3.0); LYMPH # 3.1 10^3/uL (1.5-4.5); LYMPH % 37.2 % (24.0-44.0); MEAN CORPUSCULAR HEMOGLOBIN 28.8 pg (27.0-33.0); MEAN CORPUSCULAR HGB CONC 33.8 g/dl (32.0-36.5); MEAN CORPUSCULAR VOLUME 85.3 fl (80.0-96.0); MONO # 0.7 10^3/uL (0.0-0.8); MONO % 8.3 % (0.0-5.0); NEUTROPHILS # 3.9 10^3/uL (1.8-7.7); NEUTROPHILS % 47.2 % (36.0-66.0); PLATELET COUNT, AUTOMATED 307 10^3/uL (150-450); RED BLOOD COUNT 4.89 10^6/uL (4.00-5.40); RED CELL DISTRIBUTION WIDTH 12.6 % (11.5-14.5); WHITE BLOOD COUNT 8.2 10^3/uL (4.0-10.0)
[2018-04-06 04:57] LABS: ANION GAP 6 MEQ/L (8-16); BLOOD UREA NITROGEN 15 MG/DL (7-18); CALCIUM LEVEL 7.9 MG/DL (8.5-10.1); CARBON DIOXIDE LEVEL 28 MEQ/L (21-32); CHLORIDE LEVEL 104 MEQ/L (98-107); CREATININE FOR GFR 0.57 MG/DL (0.55-1.30); GLOMERULAR FILTRATION RATE > 60.0 (>58); GLUCOSE, FASTING 265 MG/DL (70-100); SODIUM LEVEL 138 MEQ/L (136-145)
[2018-04-06] MEDS: SLF 3 ML SYR IV ×3 (05:30→21:11)
[2018-04-06] MEDS: HumaLOG INSULIN (NovoLOG) PER UNIT SC ×4 (08:07→21:11)
[2018-04-06] MEDS: ASPIRIN 81 MG ENTERIC TAB PO (08:08)
[2018-04-06] MEDS: LISINOPRIL 5 MG TAB PO (08:09)
[2018-04-06] MEDS: SERTRALINE HCL 25 MG TABLET PO (08:09)
[2018-04-06] MEDS: CLOPIDOGREL 75 MG TAB PO (08:09)
[2018-04-06 10:03] LABS: COMPLEMENT C3 109 MG/DL (90-180)
[2018-04-06 10:03] LABS: COMPLEMENT C4 22 MG/DL (10-40)
[2018-04-06 10:16] LABS: METANEPHRINE PLASMA 16 pg/mL (0-62); NORMETANEPHRINE PLASMA 34 pg/mL (0-145)
[2018-04-06 11:53] LABS: BEDSIDE GLUCOSE 393 MG/DL (70-105)
[2018-04-06 16:48] LABS: BEDSIDE GLUCOSE 230 MG/DL (70-105)
[2018-04-06 20:20] LABS: BEDSIDE GLUCOSE 272 MG/DL (70-105)
[2018-04-06] MEDS: SIMVASTATIN 40 MG TAB PO (21:10)
[2018-04-06] MEDS: LEVEMIR (INSULIN DETEMIR) 1 UNITS/0.01ML SC (21:10)
[2018-04-07 04:38] LABS: BASO # 0.1 10^3/uL (0.0-0.2); BASO % 0.6 % (0.0-1.0); EOS # 0.5 10^3/uL (0.0-0.50); EOS % 6.7 % (0.0-3.0); HEMATOCRIT 41.7 % (36.0-47.0); HEMOGLOBIN 13.6 g/dl (12.0-15.5); IMMATURE GRANULOCYTE % 0.3 % (0-3.0); LYMPH # 3.1 10^3/uL (1.5-4.5); LYMPH % 38.7 % (24.0-44.0); MEAN CORPUSCULAR HEMOGLOBIN 28.2 pg (27.0-33.0); MEAN CORPUSCULAR HGB CONC 32.6 g/dl (32.0-36.5); MEAN CORPUSCULAR VOLUME 86.5 fl (80.0-96.0); MONO # 0.6 10^3/uL (0.0-0.8); NEUTROPHILS # 3.6 10^3/uL (1.8-7.7); NEUTROPHILS % 45.7 % (36.0-66.0); PLATELET COUNT, AUTOMATED 294 10^3/uL (150-450); RED BLOOD COUNT 4.82 10^6/uL (4.00-5.40); RED CELL DISTRIBUTION WIDTH 12.7 % (11.5-14.5); WHITE BLOOD COUNT 7.9 10^3/uL (4.0-10.0)
[2018-04-07 04:55] LABS: ANION GAP 5 MEQ/L (8-16); BLOOD UREA NITROGEN 16 MG/DL (7-18); CALCIUM LEVEL 7.8 MG/DL (8.5-10.1); CARBON DIOXIDE LEVEL 28 MEQ/L (21-32); CHLORIDE LEVEL 104 MEQ/L (98-107); CREATININE FOR GFR 0.61 MG/DL (0.55-1.30); GLOMERULAR FILTRATION RATE > 60.0 (>58); GLUCOSE, FASTING 287 MG/DL (70-100); POTASSIUM SERUM 4.2 MEQ/L (3.5-5.1); SODIUM LEVEL 137 MEQ/L (136-145)
[2018-04-07] MEDS: SLF 3 ML SYR IV ×3 (06:00→20:03)
[2018-04-07 08:35] LABS: CRYOGLOBULINS NEGATIVE (NEGATIVE)
[2018-04-07] MEDS: HumaLOG INSULIN (NovoLOG) PER UNIT SC ×4 (08:36→20:02)
[2018-04-07] MEDS: SERTRALINE HCL 25 MG TABLET PO (08:37)
[2018-04-07] MEDS: ASPIRIN 81 MG ENTERIC TAB PO (08:37)
[2018-04-07] MEDS: LISINOPRIL 5 MG TAB PO (08:37)
[2018-04-07] MEDS: CLOPIDOGREL 75 MG TAB PO (08:37)
[2018-04-07 12:12] LABS: BEDSIDE GLUCOSE 315 MG/DL (70-105)
[2018-04-07] MEDS ORDERED: PROHANCE 279.3MG/ML 5ML VIAL (A9576) As Ordered (14:08)
[2018-04-07] MEDS ORDERED: PROHANCE 279.3MG/ML 15ML VIAL (A9576) As Ordered ×2 (14:09→14:10)
[2018-04-07 17:59] LABS: BEDSIDE GLUCOSE 307 MG/DL (70-105)
[2018-04-07 19:59] LABS: BEDSIDE GLUCOSE 299 MG/DL (70-105)
[2018-04-07] MEDS: LEVEMIR (INSULIN DETEMIR) 1 UNITS/0.01ML SC (20:02)
[2018-04-07] MEDS: ACETAMINOPHEN TAB 650MG DOSE (2X325MG) PO (20:03)
[2018-04-07] MEDS: SIMVASTATIN 40 MG TAB PO (20:03)
[2018-04-07] MEDS: ONDANSETRON 4MG/2ML VIAL (J2405) IV (22:30)
[2018-04-08] MEDS: ALPRAZolam 0.5 MG TAB PO (00:48)
[2018-04-08] MEDS: SLF 3 ML SYR IV ×3 (05:44→22:00)
[2018-04-08 05:58] LABS: BASO % 0.5 % (0.0-1.0); EOS # 0.5 10^3/uL (0.0-0.50); EOS % 5.3 % (0.0-3.0); HEMATOCRIT 40.3 % (36.0-47.0); IMMATURE GRANULOCYTE % 0.4 % (0-3.0); LYMPH # 3.5 10^3/uL (1.5-4.5); LYMPH % 41.4 % (24.0-44.0); MEAN CORPUSCULAR HEMOGLOBIN 28.1 pg (27.0-33.0); MEAN CORPUSCULAR HGB CONC 32.3 g/dl (32.0-36.5); MONO # 0.6 10^3/uL (0.0-0.8); MONO % 7.5 % (0.0-5.0); NEUTROPHILS # 3.8 10^3/uL (1.8-7.7); NEUTROPHILS % 44.9 % (36.0-66.0); PLATELET COUNT, AUTOMATED 282 10^3/uL (150-450); RED BLOOD COUNT 4.63 10^6/uL (4.00-5.40); RED CELL DISTRIBUTION WIDTH 12.5 % (11.5-14.5); WHITE BLOOD COUNT 8.4 10^3/uL (4.0-10.0)
[2018-04-08 06:23] LABS: ANION GAP 6 MEQ/L (8-16); BLOOD UREA NITROGEN 14 MG/DL (7-18); CALCIUM LEVEL 7.8 MG/DL (8.5-10.1); CARBON DIOXIDE LEVEL 28 MEQ/L (21-32); CHLORIDE LEVEL 106 MEQ/L (98-107); CREATININE FOR GFR 0.67 MG/DL (0.55-1.30); GLOMERULAR FILTRATION RATE > 60.0 (>58); GLUCOSE, FASTING 276 MG/DL (70-100); POTASSIUM SERUM 4.5 MEQ/L (3.5-5.1); SODIUM LEVEL 140 MEQ/L (136-145)
[2018-04-08] MEDS: LISINOPRIL 5 MG TAB PO (08:12)
[2018-04-08] MEDS: SERTRALINE HCL 25 MG TABLET PO (08:12)
[2018-04-08] MEDS: CLOPIDOGREL 75 MG TAB PO (08:12)
[2018-04-08] MEDS: ASPIRIN 81 MG ENTERIC TAB PO (08:13)
[2018-04-08] MEDS: HumaLOG INSULIN (NovoLOG) PER UNIT SC ×4 (08:14→20:51)
[2018-04-08 12:01] LABS: BEDSIDE GLUCOSE 307 MG/DL (70-105)
[2018-04-08 17:20] LABS: BEDSIDE GLUCOSE 307 MG/DL (70-105)
[2018-04-08 20:47] LABS: BEDSIDE GLUCOSE 336 MG/DL (70-105)
[2018-04-08] MEDS: SIMVASTATIN 40 MG TAB PO (20:50)
[2018-04-08] MEDS: LEVEMIR (INSULIN DETEMIR) 1 UNITS/0.01ML SC (20:51)
[2018-04-08] MEDS: ALPRAZolam 0.25 MG TAB PO (23:07)
[2018-04-09] MEDS: SLF 3 ML SYR IV (06:00)
[2018-04-09 07:04] LABS: BASO # 0.1 10^3/uL (0.0-0.2); BASO % 0.8 % (0.0-1.0); EOS # 0.5 10^3/uL (0.0-0.50); EOS % 6.5 % (0.0-3.0); HEMATOCRIT 39.5 % (36.0-47.0); HEMOGLOBIN 13.1 g/dl (12.0-15.5); IMMATURE GRANULOCYTE % 0.3 % (0-3.0); LYMPH # 2.7 10^3/uL (1.5-4.5); LYMPH % 36.4 % (24.0-44.0); MEAN CORPUSCULAR HEMOGLOBIN 28.5 pg (27.0-33.0); MEAN CORPUSCULAR HGB CONC 33.2 g/dl (32.0-36.5); MEAN CORPUSCULAR VOLUME 86.1 fl (80.0-96.0); MONO # 0.6 10^3/uL (0.0-0.8); MONO % 7.6 % (0.0-5.0); NEUTROPHILS # 3.5 10^3/uL (1.8-7.7); NEUTROPHILS % 48.4 % (36.0-66.0); PLATELET COUNT, AUTOMATED 278 10^3/uL (150-450); RED BLOOD COUNT 4.59 10^6/uL (4.00-5.40); RED CELL DISTRIBUTION WIDTH 12.7 % (11.5-14.5); WHITE BLOOD COUNT 7.3 10^3/uL (4.0-10.0)
[2018-04-09 07:24] LABS: ANION GAP 6 MEQ/L (8-16); BLOOD UREA NITROGEN 14 MG/DL (7-18); CALCIUM LEVEL 7.9 MG/DL (8.5-10.1); CARBON DIOXIDE LEVEL 28 MEQ/L (21-32); CHLORIDE LEVEL 102 MEQ/L (98-107); CREATININE FOR GFR 0.63 MG/DL (0.55-1.30); GLOMERULAR FILTRATION RATE > 60.0 (>58); GLUCOSE, FASTING 307 MG/DL (70-100); POTASSIUM SERUM 4.6 MEQ/L (3.5-5.1); SODIUM LEVEL 136 MEQ/L (136-145)
[2018-04-09] MEDS: HumaLOG INSULIN (NovoLOG) PER UNIT SC (08:11)
[2018-04-09] MEDS: SERTRALINE HCL 25 MG TABLET PO (08:34)
[2018-04-09] MEDS: ASPIRIN 81 MG ENTERIC TAB PO (08:34)
[2018-04-09] MEDS: CLOPIDOGREL 75 MG TAB PO (08:34)
[2018-04-09] MEDS: LISINOPRIL 5 MG TAB PO (08:35)
[2018-04-09 14:14] LABS: CREATININE,RANDOM URINE 37.7 mg/dL (Not Estab.); URINE METANEPHR/CREAT RATIO 0.3 (0.0-1.0); URINE METANEPHRINES RANDOM 17 ug/L (Undefined); URINE NORMETANEPHRINES RANDOM 59 ug/L (Undefined)
[2018-04-11 00:41] LABS: ANTI-HISTONE ANTIBODIES 1.8 Units (0.0-0.9)
[2018-04-11 00:41] LABS: ANA (HEP2) Negative (.); ANTI DOUBLE STRAND-DNA AB 1 IU/mL (0-9); ANTI-GLOMERULAR BASEMENT MEMB 3 units (0-20); ANTI-MITOCHONDRIAL ANTIBODY 2.4 Units (0.0-20.0); ANTI-SMOOTH MUSCLE ANTIBODY 7 Units (0-19); HLA-B27 Negative (.); RNP ANTIBODY < 0.2 AI (0.0-0.9); SMITHS ANTIBODY < 0.2 AI (0.0-0.9); SSA SJOGRENS A <0.2 AI (0.0-0.9); SSB SJOGRENS B <0.2 AI (0.0-0.9); TISSUE TRANSGLUTAMINASE IgA 2 U/mL (0-3); TISSUE TRANSGLUTAMINASE IgG <2 U/mL (0-5); UNITSIGA FOR GLIADIN IGA 8 units (0-19); UNITSIGG FOR GLIADIN IGG 2 units (0-19)
== END 2018-04-09 11:20 | disposition home or self-care (01) | DRG 199 ==
LOC: M ED 22:58 → M PED 04-08 14:00 → M ED INP 22:59 → M PCU 04-02 01:42
DX: I10 Essential (primary) hypertension (principal); E11.51 Type 2 diabetes mellitus with diabetic peripheral angiopathy without gangrene; I27.20 Pulmonary hypertension, unspecified; I65.21 Occlusion and stenosis of right carotid artery; I08.1 Rheumatic disorders of both mitral and tricuspid valves; F41.9 Anxiety disorder, unspecified; D35.00 Benign neoplasm of unspecified adrenal gland; R42 Dizziness and giddiness; R53.81 Other malaise; Z86.73 Personal history of transient ischemic attack (TIA), and cerebral infarction without residual deficits; Z79.899 Other long term (current) drug therapy; Z79.4 Long term (current) use of insulin; Z79.82 Long term (current) use of aspirin; Z87.891 Personal history of nicotine dependence; R59.9 Enlarged lymph nodes, unspecified; F32.9 Major depressive disorder, single episode, unspecified

== ENCOUNTER 2018-04-14 22:52 | Emergency (ER) | payer BC ==
[~2018-04-14] VITALS: Ht 172.7 cm; Wt 84.1 kg
[~2018-04-14 22:52] MED LIST changes: +ACET30TAB PO; +ALPR0.25 PO; +ASPI81CH PO; +ASPI81TA24 PO; +ASPI81TAEC PO; +BACT800T5 PO; +BENA25TA10 PO; +CHLO125TA PO; +CHLO25TA PO; +CLIN150C14 PO; +CLOP75TA2 PO; +GLIP1TAB11 PO; +GLIP5TAB8 PO; +GLUCTAB2 PO; -HEPARIN 1,000 UNITS/ML 10ML VIAL (FOR RADIOLOGY& DIALYSIS ONLY) As Ordered; +HYDR1CRE TOP; +INSUH10VL SC; +INSULANT SC; -ISOVUE-300 61% 50ML VIAL (Q9967) As Ordered; +JANU100T PO; +LANTINJ4 SC; -LIDOCAINE 2% MDV 20 ML VIAL As Ordered; +LISI-538 PO; +LISI-542 PO; +LISI10TA4; +METF-415 PO; +METF10004 PO; +METF500T4 PO; -MIDAZOLAM INJ 2 MG/2 ML VIAL (J2250) As Ordered; +NAPR-49 PO; +NICO14PA TD; +NORV5TAB PO; +NOVOINJ3; +PATIENT COMMENT; +PLAV1TAB2 PO; +SERT25TA PO; +SIMV40TA2 PO; +SIMV80TA13 PO; +SULFAMETHOXAZOLE-TMP; +TOUJ1.2I SC; +ULTR50TA8 PO; +ZOFR4TAB14 PO; -fentaNYL 100 MCG/2 ML INJECTION (J3010) As Ordered
[2018-04-14 22:53] VITALS: BP 180/84
[2018-04-14] MEDS ORDERED: MECL12.575 (23:07)
[2018-04-14 23:14] LABS: VENOUS HCO3 25.9 MEQ/L (23.0-27.0); VENOUS O2 SATURATION 71.3 % (60.0-80.0); VENOUS PARTIAL PRESSURE CO2 51.4 mmHg (38.0-50.0); VENOUS PARTIAL PRESSURE O2 39.5 mmHg (30.0-50.0); VENOUS TOTAL CO2 27.5 MEQ/L (24.0-28.0)
[2018-04-14] MEDS ORDERED: ASPIRIN 81 MG CHEW TABLET PO ONE (23:15)
[2018-04-14 23:17] LABS: BASO # 0.1 10^3/uL (0.0-0.2); BASO % 0.5 % (0.0-1.0); EOS # 0.4 10^3/uL (0.0-0.50); EOS % 4.2 % (0.0-3.0); HEMATOCRIT 44.1 % (36.0-47.0); HEMOGLOBIN 14.6 g/dl (12.0-15.5); LYMPH # 3.4 10^3/uL (1.5-4.5); LYMPH % 34.7 % (24.0-44.0); MEAN CORPUSCULAR HEMOGLOBIN 28.6 pg (27.0-33.0); MEAN CORPUSCULAR HGB CONC 33.1 g/dl (32.0-36.5); MEAN CORPUSCULAR VOLUME 86.3 fl (80.0-96.0); MONO # 0.6 10^3/uL (0.0-0.8); MONO % 6.3 % (0.0-5.0); NEUTROPHILS # 5.2 10^3/uL (1.8-7.7); NEUTROPHILS % 54.1 % (36.0-66.0); PLATELET COUNT, AUTOMATED 316 10^3/uL (150-450); RED BLOOD COUNT 5.11 10^6/uL (4.00-5.40); WHITE BLOOD COUNT 9.7 10^3/uL (4.0-10.0)
[2018-04-14] MEDS ORDERED: ONDANSETRON 4MG/2ML VIAL (J2405) IV ONE (23:30)
[2018-04-14 23:51] LABS: ALBUMIN 3.8 GM/DL (3.2-5.2); ALT/SGPT 35 U/L (12-78); BILIRUBIN,DIRECT 0.2 MG/DL (0.0-0.2); BILIRUBIN,TOTAL 0.4 MG/DL (0.2-1.0); BLOOD UREA NITROGEN 9 MG/DL (7-18); CALCIUM LEVEL 8.4 MG/DL (8.5-10.1); CARBON DIOXIDE LEVEL 28 MEQ/L (21-32); CHLORIDE LEVEL 102 MEQ/L (98-107); CPK CREATINE PHOSPHOKINASE 55 U/L (26-192); GLOMERULAR FILTRATION RATE > 60.0 (>58); GLUCOSE, FASTING 275 MG/DL (70-100); MB/CK RELATIVE INDEX 4.73 (< OR =4); NT-PRO BNP 26 PG/ML (<125); POTASSIUM SERUM 3.8 MEQ/L (3.5-5.1); SODIUM LEVEL 136 MEQ/L (136-145); TOTAL PROTEIN 7.1 GM/DL (6.4-8.2); TROPONIN I < 0.02 NG/ML (< 0.10)
--- NOTE | 2018-04-15 06:06 | ECGEPIP ---
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
--- NOTE | 2018-04-15 06:23 | REP ---
Clinical: Acute chest pain . Comparison: 03/30/2018 . Technique: PA and lateral. Findings: The mediastinum and cardiac silhouette are normal. The lung giles are clear and without acute consolidation, effusion, or pneumothorax. The skeletal structures are intact and normal. Impression: 1. No acute cardiopulmonary process. Electronically Signed by Irineo Sanders MD 04/15/2018 06:15 A
== END 2018-04-15 00:39 | disposition home or self-care (01) ==
LOC: M ED 22:52
DX: R07.89 Other chest pain (principal); I10 Essential (primary) hypertension; F17.210 Nicotine dependence, cigarettes, uncomplicated; E11.9 Type 2 diabetes mellitus without complications; Z86.73 Personal history of transient ischemic attack (TIA), and cerebral infarction without residual deficits
CPT/HCPCS: 36415; 71046; 80048; 80076; 82550; 82553; 82803; 83880; 84484; 85025; 93005; 93041; 96374; 99284; J2405

== ENCOUNTER 2018-04-17 15:51 | Emergency (ER) | payer BC ==
[~2018-04-17] VITALS: Ht 172.7 cm; Wt 81.8 kg
[~2018-04-17 15:51] MED LIST changes: +MECL12.575
[2018-04-17] MEDS ORDERED: GI COCKTAIL 50ML BTL(HYOSCYAMINE/MAALOX/LIDOCAINE VISCOUS)(1:3:1) PO ONE (16:45)
--- NOTE | 2018-04-17 16:48 | REP ---
Portable chest x-ray: Sitting AP view. History: Chest pain. Comparison study: April 14, 2018. Findings: EKG monitoring electrodes are seen overlying the chest. Lungs are well inflated and clear. Heart is not enlarged. Pulmonary vasculature is not increased. Pleural angles are sharp. No bony abnormalities seen. Impression: Negative portable chest x-ray. Electronically Signed by Mina Tracy MD 04/17/2018 04:39 P
[2018-04-17 18:06] LABS: BASO % 0.5 % (0.0-1.0); EOS # 0.4 10^3/uL (0.0-0.50); EOS % 4.3 % (0.0-3.0); HEMATOCRIT 41.5 % (36.0-47.0); HEMOGLOBIN 14.2 g/dl (12.0-15.5); LYMPH # 2.3 10^3/uL (1.5-4.5); LYMPH % 28.6 % (24.0-44.0); MEAN CORPUSCULAR HEMOGLOBIN 29.6 pg (27.0-33.0); MEAN CORPUSCULAR HGB CONC 34.2 g/dl (32.0-36.5); MEAN CORPUSCULAR VOLUME 86.5 fl (80.0-96.0); MONO # 0.6 10^3/uL (0.0-0.8); MONO % 7.2 % (0.0-5.0); NEUTROPHILS # 4.8 10^3/uL (1.8-7.7); NEUTROPHILS % 59.2 % (36.0-66.0); PLATELET COUNT, AUTOMATED 301 10^3/uL (150-450); WHITE BLOOD COUNT 8.1 10^3/uL (4.0-10.0)
[2018-04-17 18:16] LABS: INR 0.92; PROTHROMBIN TIME 12.5 SECONDS (12.1-14.4)
[2018-04-17 18:36] LABS: ALBUMIN 3.7 GM/DL (3.2-5.2); ALT/SGPT 34 U/L (12-78); BILIRUBIN,DIRECT < 0.1 MG/DL (0.0-0.2); BILIRUBIN,TOTAL 0.3 MG/DL (0.2-1.0); BLOOD UREA NITROGEN 9 MG/DL (7-18); CARBON DIOXIDE LEVEL 28 MEQ/L (21-32); CHLORIDE LEVEL 101 MEQ/L (98-107); CPK CREATINE PHOSPHOKINASE 60 U/L (26-192); CREATININE FOR GFR 0.58 MG/DL (0.55-1.30); GLOMERULAR FILTRATION RATE > 60.0 (>58); GLUCOSE, FASTING 234 MG/DL (70-100); LIPASE 122 U/L (73-393); MB/CK RELATIVE INDEX 5.33 (< OR =4); NT-PRO BNP 25 PG/ML (<125); POTASSIUM SERUM 4.2 MEQ/L (3.5-5.1); SODIUM LEVEL 139 MEQ/L (136-145); THYROID STIMULATING HORMONE 0.677 uIU/ML (0.358-3.740); TOTAL PROTEIN 7.1 GM/DL (6.4-8.2); TROPONIN I < 0.02 NG/ML (< 0.10)
[2018-04-17 21:08] LABS: CPK CREATINE PHOSPHOKINASE 49 U/L (26-192); TROPONIN I < 0.02 NG/ML (< 0.10)
[2018-04-17 21:15] VITALS: BP 179/88
[2018-04-17] MEDS ORDERED: LISINOPRIL 5 MG TAB PO ONE (21:15)
[2018-04-17 21:40] VITALS: BP 174/81
--- NOTE | 2018-04-18 11:11 | ECGEPIP ---
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
--- NOTE | 2018-04-18 11:22 | ECGEPIP ---
Stationary ECG Study [facility] - ED Test Date: 2018-04-17 Pat Name: ELLIE ELIZONDO Department: Room: - Gender: F Informatica: TC : 1970 Requested By: KIM Sylvester Order Number: [id number] Reading MD: Epifanio Bellamy Measurements Intervals [place] Rate: 82 P: 26 [place]: 133 QRS: 45 QRSD: 96 T: 25 QT: 349 QTc: 409 Interpretive Statements SINUS RHYTHM SIMILAR TO PRIOR ON SAME DATE Electronically Signed On 04-18-2018 11:22:32 EST by Epifanio Bellamy
== END 2018-04-17 21:42 | disposition home or self-care (01) ==
LOC: M ED 15:51
DX: R07.89 Other chest pain (principal); E11.9 Type 2 diabetes mellitus without complications; I10 Essential (primary) hypertension; Z86.73 Personal history of transient ischemic attack (TIA), and cerebral infarction without residual deficits; Z79.82 Long term (current) use of aspirin; Z79.02 Long term (current) use of antithrombotics/antiplatelets; Z79.4 Long term (current) use of insulin; Z79.899 Other long term (current) drug therapy

== ENCOUNTER 2018-06-27 09:59 | Emergency (ER) | payer BC ==
[~2018-06-27] VITALS: Ht 172.7 cm; Wt 92.2 kg
[~2018-06-27 09:59] MED LIST changes: -NAPR-49 PO; +NAPR-50 PO
[2018-06-27 10:28] LABS: BASO # 0.1 10^3/uL (0.0-0.2); BASO % 0.8 % (0.0-1.0); EOS # 0.6 10^3/uL (0.0-0.50); EOS % 7.2 % (0.0-3.0); HEMATOCRIT 42.9 % (36.0-47.0); HEMOGLOBIN 14.3 g/dl (12.0-15.5); LYMPH # 2.6 10^3/uL (1.5-4.5); LYMPH % 33.6 % (24.0-44.0); MEAN CORPUSCULAR HEMOGLOBIN 29.1 pg (27.0-33.0); MEAN CORPUSCULAR HGB CONC 33.3 g/dl (32.0-36.5); MEAN CORPUSCULAR VOLUME 87.2 fl (80.0-96.0); MONO # 0.6 10^3/uL (0.0-0.8); MONO % 7.6 % (0.0-5.0); NEUTROPHILS # 3.9 10^3/uL (1.8-7.7); NEUTROPHILS % 50.5 % (36.0-66.0); PLATELET COUNT, AUTOMATED 329 10^3/uL (150-450); RED BLOOD COUNT 4.92 10^6/uL (4.00-5.40); WHITE BLOOD COUNT 7.7 10^3/uL (4.0-10.0)
[2018-06-27 10:35] LABS: INR 0.93; PROTHROMBIN TIME 12.6 SECONDS (12.1-14.4)
[2018-06-27 10:36] LABS: PARTIAL THROMBOPLASTIN TIME 32.5 SECONDS (25.4-37.6)
--- NOTE | 2018-06-27 10:58 | REP ---
CT BRAIN WITHOUT CONTRAST: HISTORY: CVA. Comparison brain MRI study is from April 02, 2018. 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 Bone window settings demonstrate an intact bony calvarium. There is vascular calcification in the distal vertebral and distal carotid arteries. Visualized paranasal sinuses are clear. No intraorbital abnormality is seen. The lateral, third and fourth ventricles are normal in size and position. Andino-white differentiation pattern is normal above and below the tentorium. There is no evidence of intracranial hemorrhage. No extra-axial fluid collection is seen. No mass or midline shift is noted. No infarct or mass is seen. IMPRESSION: Vascular calcification. Otherwise negative noncontrast brain CT. Electronically Signed by Mina Tracy MD 06/27/2018 11:30 A
[2018-06-27 11:03] LABS: BLOOD UREA NITROGEN 14 MG/DL (7-18); CALCIUM LEVEL 8.9 MG/DL (8.5-10.1); CARBON DIOXIDE LEVEL 28 MEQ/L (21-32); CHLORIDE LEVEL 97 MEQ/L (98-107); CPK CREATINE PHOSPHOKINASE 111 U/L (26-192); CREATININE FOR GFR 0.68 MG/DL (0.55-1.30); FREE T4 0.92 NG/DL (0.76-1.46); GLOMERULAR FILTRATION RATE > 60.0 (>58); GLUCOSE, FASTING 256 MG/DL (70-100); MAGNESIUM LEVEL 1.9 MG/DL (1.8-2.4); MB/CK RELATIVE INDEX 5.77 (< OR =4); PHOSPHORUS LEVEL 3.7 MG/DL (2.5-4.9); POTASSIUM SERUM 4.4 MEQ/L (3.5-5.1); SODIUM LEVEL 134 MEQ/L (136-145); TROPONIN I < 0.02 NG/ML (< 0.10)
--- NOTE | 2018-06-27 11:14 | REP ---
Portable chest: Single view. History: CVA. Comparison study: April 17, 2018. Findings: EKG monitoring electrodes overlie the chest. Lungs are well inflated and clear. Heart is not enlarged. Pulmonary vasculature is not increased. No significant bony abnormality is seen. Pulmonary vasculature is not increased. Impression: Negative portable chest x-ray. Electronically Signed by Mina Tracy MD 06/27/2018 11:05 A
[2018-06-27 15:13] VITALS: BP 114/63
--- NOTE | 2018-06-27 18:47 | ECGEPIP ---
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
== END 2018-06-27 15:19 | disposition home or self-care (01) ==
LOC: M ED 09:59
DX: R20.2 Paresthesia of skin (principal); E11.9 Type 2 diabetes mellitus without complications; I10 Essential (primary) hypertension; Z86.73 Personal history of transient ischemic attack (TIA), and cerebral infarction without residual deficits; R51 Headache; Z87.891 Personal history of nicotine dependence; Z79.82 Long term (current) use of aspirin; Z79.4 Long term (current) use of insulin; Z79.899 Other long term (current) drug therapy

== ENCOUNTER → 2018-08-25 | Outpatient (CLI) | payer BC ==
[~2018-08-25] MED LIST changes: +ACET-716 PO; -ACET30TAB PO; -ASPI81CH PO; +ASPI81CH49 PO; -NAPR-50 PO; +NAPR-837 PO; -SERT25TA PO; +SERT25TA85 PO
--- NOTE | 2018-08-26 05:05 | REP ---
Clinical: Stenosis. Comparison: 02/07/2018 . Technique: Andino scale and color Doppler evaluation using linear high frequency transducer Findings: Two-dimensional andino scale and color images demonstrate significant mixed atheromatous plaquing from the right carotid bulb through the visualized portions of the right internal carotid artery. Mild amounts of mixed atheromatous plaquing are also identified involving the left carotid bulb and proximal internal carotid artery. Color Doppler interrogation demonstrates biphasic wave patterns through the right internal carotid artery with significant spectral broadening and decreased velocity. Left internal carotid artery demonstrates a biphasic wave pattern with moderate spectral broadening. Normal flow direction noted in the bilateral vertebral arteries. RIGHT (cm/s) LEFT (cm/s) ICA peak systolic velocity 36.7 99.7 ICA diastolic velocity 9.0 34.6 ECA peak systolic velocity 120.0 135.0 CCA peak systolic velocity 86.1 119.0 ICA/CCA ratio 0.4 0.8 Impression: 1. Narrowing through the right internal carotid artery is felt to be in the 50-69% range. Narrowing through the left proximal internal carotid artery falls within the less than 50% range. Electronically Signed by Irineo Sanders MD 08/26/2018 04:56 A
== END ==
LOC: M RAD 14:45
PROVIDERS: ATTEND Surgery Vascular Surgery
DX: I65.23 Occlusion and stenosis of bilateral carotid arteries (principal)

== ENCOUNTER → 2018-08-29 | Outpatient (CLI) | payer BC ==
[2018-08-29 13:22] LABS: BLOOD UREA NITROGEN 16 MG/DL (7-18); CALCIUM LEVEL 8.2 MG/DL (8.5-10.1); CARBON DIOXIDE LEVEL 25 MEQ/L (21-32); CHLORIDE LEVEL 102 MEQ/L (98-107); CREATININE FOR GFR 0.72 MG/DL (0.55-1.30); GLOMERULAR FILTRATION RATE > 60.0 (>58); GLUCOSE, FASTING 347 MG/DL (70-100); POTASSIUM SERUM 4.3 MEQ/L (3.5-5.1); SODIUM LEVEL 135 MEQ/L (136-145)
[2018-08-29 13:41] LABS: HEMOGLOBIN A1c 10.1 %
== END ==
LOC: M LAB 12:02
PROVIDERS: ATTEND Student in an Organized Health Care Education/Training Program
DX: E11.29 Type 2 diabetes mellitus with other diabetic kidney complication (principal); R63.5 Abnormal weight gain

== ENCOUNTER → 2019-01-28 | Outpatient (CLI) | payer BC ==
[~2019-01-28] MED LIST changes: +METF-791 PO; -METF500T4 PO
[2019-01-28 19:00] LABS: HEMOGLOBIN A1c 12.5 %
== END ==
LOC: M LAB 15:44
PROVIDERS: ATTEND Student in an Organized Health Care Education/Training Program
DX: E11.40 Type 2 diabetes mellitus with diabetic neuropathy, unspecified (principal)

== ENCOUNTER → 2019-02-03 | Outpatient (CLI) | payer BC ==
--- NOTE | 2019-02-03 16:26 | REPMRS ---
Patient History The patient states she has not had a clinical breast exam in over a year. Family history of breast cancer under age 50 and pancreatic cancer at age 50 or over in maternal aunt, breast cancer in maternal aunt, breast cancer in paternal aunt. No Hormone Replacement Therapy Digital Woman Screen Mammo: February 03, 2019 - Exam #: [id number] Bilateral CC and MLO view(s) were taken. Technologist: Janette Lorenzo, Technologist Prior study comparison: May 28, 2017, digital woman screen mammo performed at [facility]. FINDINGS: There are scattered fibroglandular densities. There has been no change in the appearance of the mammogram from the prior studies. There is a mild amount of scattered fibroglandular density which is fairly symmetric. There is no interval development of dominant mass, architectural distortion, or grouped microcalcification suggestive of malignancy. 3-D tomosynthesis shows no additional findings. Assessment: BI-RADS/ACR category 1 mammogram. Negative Mammogram. Recommendation Routine screening mammogram of both breasts in 1 year (for women over age 40). This patient's Lifetime Breast Cancer Risk is estimated at 15.4 %. This mammogram was interpreted with the aid of an FDA-approved computer-aided dectection system. Electronically Signed By: Enio Tracy MD 02/03/19 [id number]
== END ==
LOC: M WHC 12:48
PROVIDERS: ATTEND Student in an Organized Health Care Education/Training Program
DX: Z12.31 Encounter for screening mammogram for malignant neoplasm of breast (principal)

== ENCOUNTER → 2019-03-09 | Outpatient (CLI) | payer BC ==
--- NOTE | 2019-03-09 15:44 | REP ---
CAROTID ULTRASOUND: Real-time ultrasound evaluation and duplex Doppler interrogation of the extracranial carotid vasculature is performed. There is mild plaquing and narrowing in both carotid bulbs extending into the internal and external carotid arteries. Luminal narrowing is less than 50%. There is no evidence of hemodynamically significant stenosis of either internal carotid artery. Normal flow velocities are seen. The vertebral arteries demonstrate normal direction of flow. RIGHT LEFT Peak systolic velocity ICA 53.0 cm/s 118.5 cm/s End diastolic velocity ICA 13.9 cm/s 52.6 cm/s Peak systolic velocity CCA 114.4 cm/s 126.6 cm/s Peak systolic velocity ECA 186.1 cm/s 115.5 cm/s ICA/CCA ratio 0.46 0.94 IMPRESSION: Bilateral luminal narrowing of the internal carotid arteries less than 50%. No evidence of hemodynamically significant stenosis. Electronically Signed by Ricky Andino MD 03/09/2019 03:36 P
== END ==
LOC: M RAD 13:49
PROVIDERS: ATTEND Physician Assistant
DX: I65.23 Occlusion and stenosis of bilateral carotid arteries (principal)

== ENCOUNTER → 2019-05-01 | Outpatient (REF) | payer BC ==
[~2019-05-01] MED LIST changes: -MECL12.575; +MECL12.589; -SIMV40TA2 PO; +SIMV40TA20 PO
== END ==
LOC: M SFHCPLAZ 09:41
PROVIDERS: ATTEND Family Medicine
DX: Z53.9 Procedure and treatment not carried out, unspecified reason (principal)

== ENCOUNTER 2019-07-10 22:44 | Emergency (ER) | payer BC ==
[2019-07-10 23:27] LABS: BASO # 0.1 10^3/uL (0.0-0.2); BASO % 0.6 % (0.0-1.0); EOS # 0.5 10^3/uL (0.0-0.5); EOS % 6.6 % (0.0-3.0); HEMATOCRIT 46.4 % (36.0-47.0); LYMPH # 2.5 10^3/uL (1.5-5.0); LYMPH % 30.1 % (24.0-44.0); MEAN CORPUSCULAR HEMOGLOBIN 27.1 pg (27.0-33.0); MEAN CORPUSCULAR HGB CONC 32.3 g/dl (32.0-36.5); MEAN CORPUSCULAR VOLUME 83.8 fl (80.0-96.0); MONO # 0.5 10^3/uL (0.0-0.8); MONO % 6.6 % (0.0-5.0); NEUTROPHILS # 4.6 10^3/uL (1.5-8.5); NEUTROPHILS % 55.6 % (36.0-66.0); PLATELET COUNT, AUTOMATED 320 10^3/uL (150-450); RED BLOOD COUNT 5.54 10^6/uL (4.00-5.40); WHITE BLOOD COUNT 8.2 10^3/uL (4.0-10.0)
[2019-07-10] MEDS ORDERED: NS 500 ML IV ONE ×2 (23:30→23:45)
[2019-07-10] MEDS ORDERED: METOCLOPRAMIDE INJ 10MG/2ML VIAL (J2765) IV ONE (23:30)
[2019-07-10 23:31] LABS: INR 0.89; PROTHROMBIN TIME 11.8 SECONDS (11.8-14.0)
[2019-07-10 23:32] LABS: PARTIAL THROMBOPLASTIN TIME 29.6 SECONDS (25.0-38.4)
[2019-07-10 23:42] LABS: ALBUMIN 4.1 GM/DL (3.2-5.2); ALT/SGPT 53 U/L (12-78); BILIRUBIN,DIRECT < 0.1 MG/DL (0.0-0.2); BILIRUBIN,TOTAL 0.4 MG/DL (0.2-1.0); BLOOD UREA NITROGEN 18 MG/DL (7-18); CALCIUM LEVEL 8.9 MG/DL (8.5-10.1); CARBON DIOXIDE LEVEL 29 MEQ/L (21-32); CHLORIDE LEVEL 101 MEQ/L (98-107); CK-MB VALUE MASS 5.3 NG/ML (<3.6); CPK CREATINE PHOSPHOKINASE 111 U/L (26-192); CREATININE FOR GFR 0.69 MG/DL (0.55-1.30); GLOMERULAR FILTRATION RATE > 60.0 (>58); GLUCOSE, FASTING 249 MG/DL (70-100); LIPASE 271 U/L (73-393); MB/CK RELATIVE INDEX 4.77 (< OR =4); POTASSIUM SERUM 4.4 MEQ/L (3.5-5.1); SODIUM LEVEL 136 MEQ/L (136-145); TOTAL PROTEIN 7.6 GM/DL (6.4-8.2); TROPONIN I < 0.02 NG/ML (< 0.10)
[2019-07-11] MEDS ORDERED: ONDANSETRON 4MG/2ML VIAL (J2405) IV ONE (00:15)
[2019-07-11] MEDS ORDERED: MORPHINE 4 MG/ML 1ML VIAL/SYRINGE (J2270) IV ONE (00:15)
--- NOTE | 2019-07-11 00:19 | REPVR ---
PROCEDURE INFORMATION: Exam: CT Abdomen And Pelvis With Contrast Exam date and time: 07/10/2019 11:44 PM Age: 48 years old Clinical indication: Abdominal pain; Localized; Right lower quadrant (rlq); Additional info: Rlq pain TECHNIQUE: Imaging protocol: Computed tomography of the abdomen and pelvis with intravenous contrast. Radiation optimization: All CT scans at this facility use at least one of these dose optimization techniques: automated exposure control; mA and/or kV adjustment per patient size (includes targeted exams where dose is matched to clinical indication); or iterative reconstruction. Contrast material: ISO; Contrast volume: 100 ml; Contrast route: AC; COMPARISON: CT ABD PELVIS WITH CONTRAST 04/03/2018 9:24 AM FINDINGS: Liver: The liver attenuation is 74 Hounsfield units and the spleen is 115 Hounsfield units. Gallbladder and bile ducts: The gallbladder is contracted with no stones. Pancreas: Normal. No ductal dilation. Spleen: Normal. No splenomegaly. Adrenals: Right adrenal nodule measuring 14 mm with a Hounsfield measurement of 64. Left adrenal nodules measuring 20 x 15 x 19 mm with a Hounsfield measurement of 61 and a smaller 2nd left adrenal nodule measuring 10 mm with a Hounsfield measurement of 64. The appearance is similar to the prior study. Kidneys and ureters: There is a right renal cyst measuring 10 mm with a Hounsfield measurement of 2 consistent with a Bosniak 1 cyst with no follow-up needed. Stomach and bowel: Mild stool throughout much of the colon. Appendix: A normal appendix is seen. Intraperitoneal space: Unremarkable. No free air. No significant fluid collection. Vasculature: There is moderate atherosclerotic calcification of the abdominal aorta with extension into the iliac arteries. There is a left common iliac to external iliac artery stent. Lymph nodes: Unremarkable. No enlarged lymph nodes. Bladder: Unremarkable as visualized. Reproductive: Mild left adnexal venous varicosities with a 6 mm left gonadal vein. Bones/joints: Unremarkable. No acute fracture. Soft tissues: Unremarkable. IMPRESSION: 1. There has been little change from 04/03/2018. A normal appendix is seen. 2. Mild fatty infiltration of the liver. 3. Bilateral adrenal nodules. No follow-up necessary. The Electronically signed by: Remington Massey On 07/11/2019 00:18:53 AM
[2019-07-11 00:52] LABS: APPEARANCE, URINE CLEAR (CLEAR); BACTERIA, URINE AUTO NEGATIVE (NEGATIVE); BILIRUBIN, URINE AUTO NEGATIVE (NEGATIVE); BLOOD, URINE BLOOD NEGATIVE (NEGATIVE); COLOR, URINE STRAW (YELLOW); GLUCOSE, URINE (UA) AUTO 3+ mg/dL (NEGATIVE); KETONE, URINE AUTO 1+ mg/dL (NEGATIVE); LEUKOCYTE ESTERASE, URINE AUTO NEGATIVE (NEGATIVE); NITRITE, URINE AUTO NEGATIVE (NEGATIVE); PROTEIN, URINE AUTO NEGATIVE (NEGATIVE); RBC, URINE AUTO 1 /HPF (0-3); SPECIFIC GRAVITY URINE AUTO 1.031 (1.002-1.035); SQUAMOUS EPITHELIAL CELL UR AU 0 /HPF (0-6); UROBILINOGEN, URINE AUTO 0.2 mg/dL (0.0-2.0); WBC, URINE AUTO 1 /HPF (0-3)
[2019-07-11 01:02] VITALS: BP 111/60
[2019-07-11] MEDS ORDERED: ZOFR4TAB16 PO (01:02)
--- NOTE | 2019-07-12 06:38 | ECGEPIP ---
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
== END 2019-07-11 01:15 | disposition home or self-care (01) ==
LOC: M ED 22:44
DX: K52.9 Noninfective gastroenteritis and colitis, unspecified (principal); K76.0 Fatty (change of) liver, not elsewhere classified; E27.9 Disorder of adrenal gland, unspecified; N28.1 Cyst of kidney, acquired; E11.9 Type 2 diabetes mellitus without complications; I10 Essential (primary) hypertension; E78.5 Hyperlipidemia, unspecified; F33.9 Major depressive disorder, recurrent, unspecified; Z86.79 Personal history of other diseases of the circulatory system; Z87.891 Personal history of nicotine dependence; Z79.82 Long term (current) use of aspirin; Z79.84 Long term (current) use of oral hypoglycemic drugs; Z79.899 Other long term (current) drug therapy
CPT/HCPCS: 36415; 74177; 80047; 80048; 80076; 81001; 82550; 82553; 83690; 84484; 85025; 85610; 85730; 93005; 96361; 96374; 96375; 99284; J2270; J2405; J2765

== ENCOUNTER 2019-10-29 09:44 | Emergency (ER) | payer BC ==
[~2019-10-29] VITALS: Ht 172.7 cm; Wt 88.9 kg
[~2019-10-29 09:44] MED LIST changes: -METF-791 PO; +METF-838 PO; +ZOFR4TAB16 PO
[2019-10-29] MEDS ORDERED: FARX1TAB3 PO (09:52)
[2019-10-29] MEDS ORDERED: INSULANT SC (09:52)
[2019-10-29] MEDS ORDERED: HYDR-3363 PO (09:52)
[2019-10-29] MEDS ORDERED: FLUORESCEIN OPHTH 1 MG STRIP OS ONE (10:15)
[2019-10-29] MEDS ORDERED: TETRACAINE 0.5% OPHTH SOLN 4ML OS ONE (10:15)
[2019-10-29] MEDS ORDERED: PREDOPD OS (12:59)
[2019-10-29 13:04] VITALS: BP 131/69
--- NOTE | 2019-10-30 22:55 | ER ---
DATE OF CONSULTATION: 10/29/2019 Consultation re: left red eye with eye pain HISTORY OF THE PRESENT ILLNESS: This is a 48-year-old female who presented to the emergency department with 48 hours of left eye pain with increasing redness. She also notes that there is decreasing visual acuity during that time. She states that over the past 2 days, the eye has become more painful and red associated with photophobia. She denies any floaters or flashing lights or recent trauma. She denies contact lens use. The patient does wear prescription eyeglasses but does not have them with her today. The patient relates a history of a similar episode a few years ago, which apparently was treated at [facility], who she normally follows with. She has never had a systemic workup. PAST MEDICAL HISTORY: Insulin-dependent diabetic with poor control. 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 PAST OCULAR MEDICATIONS: None. ALLERGIES: None. REVIEW OF SYSTEMS: Patient has left periorbital and retroorbital eye pain with redness and blurred vision. She denies any nose bleeds or rhinorrhea. She has no fevers, chills, or recent weight loss or weight gain. There is no difficulty swallowing. She has no chest pain, no shortness of breath. There is no abdominal pain or difficulty with urination or lower extremity or upper extremity weakness. EXAMINATION: Patient is 20/80 in the right eye and 20/100 in the left eye - without correction Pupil in the right eye is equal, round and reactive to light. There is no APD. The left pupil appears to be somewhat sluggishly reactive and about 5 mm on examination. The extraocular muscles are full and intact bilaterally. The confrontation visual giles are full to count fingers both eyes (OU). Lids, lashes and adnexa are within normal limits bilaterally. The conjunctiva in the right eye is white and quiet. The conjunctiva and sclera in the left eye is 2+ injected with 2+ chemosis. The anterior chamber is deep and quiet on the right eye with no cell or flare. In the left eye, there is 3+ cell. There is no hypopyon. There are some fibrin accumulations throughout the anterior chamber in the left eye and on the anterior lens capsule. The cornea is clear both eyes. The lens has 1+ NS both eyes. Dilated fundus exam was deferred at this time due to extreme photophobia ASSESSMENT AND PLAN: This is a 48-year-old female with active iridocyclitis in the left eye. She likely has a history of recurrent alternating iridocyclitis, which has never been worked up in the past but has been treated with topical eye drops successfully. Would recommend starting Prednisolone acetate 1% every 1 hour and Cyclopentolate three times to the left eye. She will follow up with me in the office in 24 hours to reassess her condition and response to treatment. Patient instructed to call the emergency department or my office immediately if there are any changes. KELLY
== END 2019-10-29 13:05 | disposition home or self-care (01) ==
LOC: M ED 09:44
DX: H20.9 Unspecified iridocyclitis (principal); E11.9 Type 2 diabetes mellitus without complications; I10 Essential (primary) hypertension; E78.5 Hyperlipidemia, unspecified; Z79.899 Other long term (current) drug therapy; Z79.82 Long term (current) use of aspirin; Z79.4 Long term (current) use of insulin; Z79.01 Long term (current) use of anticoagulants

== ENCOUNTER → 2019-10-30 | Outpatient (CLI) | payer BC ==
[~2019-10-30] MED LIST changes: +CLOB0.0526 TOP; +CYCL5TAB PO; +ELIQ5TAB PO; +FARX1TAB3 PO; +HYDR-3363 PO; +LISI10TA4 PO; +NAPR-885 PO; +PREDOPD OS; +ZOCO80TA PO
[2019-10-30 14:19] LABS: HEMATOCRIT 46.1 % (36.0-47.0); MEAN CORPUSCULAR HEMOGLOBIN 27.9 pg (27.0-33.0); MEAN CORPUSCULAR HGB CONC 32.5 g/dl (32.0-36.5); MEAN CORPUSCULAR VOLUME 85.7 fl (80.0-96.0); PLATELET COUNT, AUTOMATED 289 10^3/uL (150-450); RED BLOOD COUNT 5.38 10^6/uL (4.00-5.40); WHITE BLOOD COUNT 7.5 10^3/uL (4.0-10.0)
[2019-10-30 14:42] LABS: RHEUMATOID FACTOR QUANT < 10.0 IU/ML (<15.0)
[2019-11-04 11:12] LABS: ANGIOTENSIN 1 CONVERTING ENZYM 7 U/L (14-82); HLA-B27 Negative (.); Lyme Disease IgG/IgM Antibodie <0.91 ISR (0.00-0.90); Lyme Disease IgM Ab Quantitati <0.80 index (0.00-0.79); SSA SJOGRENS A <0.2 AI (0.0-0.9); SSB SJOGRENS B <0.2 AI (0.0-0.9)
== END ==
LOC: M LAB 13:52
PROVIDERS: ATTEND Ophthalmology
DX: H20.012 Primary iridocyclitis, left eye (principal)

== ENCOUNTER → 2019-11-06 | Outpatient (CLI) | payer BC ==
--- NOTE | 2019-11-06 11:36 | REP ---
CAROTID ULTRASOUND: Real-time ultrasound evaluation and duplex Doppler interrogation of the extracranial carotid vasculature is performed. There is mild plaquing and narrowing in both carotid bulbs extending into the internal and external carotid arteries. Luminal narrowing is less than 50%. There is no evidence of hemodynamically significant stenosis of either internal carotid artery. Normal flow velocities are seen. The vertebral arteries demonstrate normal direction of flow. There is loss of pulsatility in the wave form of the left vertebral artery. RIGHT LEFT Peak systolic velocity ICA 30.7 cm/s 118.6 cm/s End diastolic velocity ICA 8.2 cm/s 38.7 cm/s Peak systolic velocity CCA 79.7 cm/s 115 cm/s Peak systolic velocity ECA 91.5 cm/s 99.2 cm/s ICA/CCA ratio 0.39 1.03 IMPRESSION: Bilateral luminal narrowing of the internal carotid arteries less than 50%. No evidence of hemodynamically significant stenosis. Electronically Signed by Ricky Andino MD 11/06/2019 11:25 A
--- NOTE | 2019-11-06 12:08 | REP ---
REASON FOR EXAM: Claudication. RIGHT: Ankle brachial index on the right is 0.6. SOLUTIONS SALES EXECUTIVE 82. 7 cm/s Monophasic Profunda 66.7 cm/s Monophasic SFA proximal 72.1 to 92.5 cm/s Monophasic SFA mid 68.4 cm/s Monophasic SFA distal 83.1 cm/s Monophasic Popliteal 37.6 cm/s Monophasic JAMAL proximal 26.2 cm/s Monophasic Tibioperoneal trunk 28.2 cm/s Monophasic AUTOMATION SOFTWARE ENGINEER proximal 22.9 cm/s Monophasic AUTOMATION SOFTWARE ENGINEER distal 28.0 cm/s Monophasic JAMAL distal 18.7 cm/s Monophasic LEFT: Ankle brachial index on the right is 0.7. SOLUTIONS SALES EXECUTIVE 134.9 cm/s Triphasic Profunda 72.1 cm/s Triphasic SFA proximal 116. cm/s Triphasic SFA mid 76.4 cm/s Biphasic SFA distal 106.7 cm/s Triphasic Popliteal 50.0 cm/s Biphasic JAMAL proximal 26.4 cm/s Biphasic Tibioperoneal trunk 33.3 cm/s Biphasic AUTOMATION SOFTWARE ENGINEER proximal 36.2 cm/s Biphasic AUTOMATION SOFTWARE ENGINEER distal 52.1 cm/s Biphasic JAMAL distal 37.2 cm/s Biphasic Moderate plaque was seen bilaterally. Electronically Signed by Rio Orellana DO 11/06/2019 04:59 P
== END ==
LOC: M RAD 09:18
PROVIDERS: ATTEND Physician Assistant
DX: I65.23 Occlusion and stenosis of bilateral carotid arteries (principal)

== ENCOUNTER 2019-11-18 14:50 | Emergency (ER) | payer OTHER, BC ==
[~2019-11-18 14:50] MED LIST changes: +BOOSTRIX/ADACEL VACCINE (DIPHTH/PERTUSS/ACELL/TETANUS) 0.5ML SYR ONE; -CLOB0.0526 TOP; -CYCL5TAB PO; +DERMABOND TOPICAL SKIN ADHESIVE ONE; -ELIQ5TAB PO; -LISI10TA4 PO; -NAPR-885 PO; -ZOCO80TA PO
[2019-11-18] MEDS ORDERED: DERMABOND TOPICAL SKIN ADHESIVE As Ordered ONE (17:43)
[2019-11-18] MEDS ORDERED: BOOSTRIX/ADACEL VACCINE (DIPHTH/PERTUSS/ACELL/TETANUS) 0.5ML SYR As Ordered ONE (18:12)
== END 2019-11-18 18:56 | disposition home or self-care (01) ==
LOC: M ED 14:50
DX: S61.412A Laceration without foreign body of left hand, initial encounter (principal); W26.8XXA Contact with other sharp object(s), not elsewhere classified, initial encounter; Y92.89 Other specified places as the place of occurrence of the external cause; Y93.89 Activity, other specified; Y99.0 Civilian activity done for income or pay; I10 Essential (primary) hypertension; E87.5 Hyperkalemia; Z79.899 Other long term (current) drug therapy; Z79.02 Long term (current) use of antithrombotics/antiplatelets; Z79.84 Long term (current) use of oral hypoglycemic drugs; Z79.82 Long term (current) use of aspirin

== ENCOUNTER 2019-11-20 08:10 | Day surgery (SDC) | payer BC ==
[~2019-11-20 08:10] MED LIST changes: -BOOSTRIX/ADACEL VACCINE (DIPHTH/PERTUSS/ACELL/TETANUS) 0.5ML SYR ONE; -DERMABOND TOPICAL SKIN ADHESIVE ONE
[2019-11-20] MEDS ORDERED: LIDOCAINE 2% 100MG/5ML SDV (FOR ANES.) As Ordered ONE (08:34)
[2019-11-20] MEDS ORDERED: propofoL 200 MG/20 ML VIAL As Ordered ONE (08:34)
[2019-11-20] MEDS ORDERED: PHENYLephrine HCL 500 MCG/5 ML (100MCG/ML) SYRINGE (J2370) As Ordered ONE (09:30)
--- NOTE | 2019-12-30 11:32 | ROOR ---
Patient Name: Luma Ulloa Procedure Date: 11/20/2019 9:16 AM Date of : 1970 Age: 49 Room: [facility] Gender: Female Note Status: Finalized Procedure: Colonoscopy Indications: Screening for colorectal malignant neoplasm Providers: Tobi Greco MD Referring MD: Gabriele Lynn Do Requesting Provider: Medicines: Monitored Anesthesia Care Complications: No immediate complications. Procedure: Pre-Anesthesia Assessment: - Prior to the procedure, a History and Physical was performed, and patient medications and allergies were reviewed. The patient is competent. The risks and benefits of the procedure and the sedation options and risks were discussed with the patient. All questions were answered and informed consent was obtained. Patient identification and proposed procedure were verified by the physician, the nurse and the anesthesiologist in the procedure room. Mental Status Examination: alert and oriented. Airway Examination: normal oropharyngeal airway and neck mobility. Respiratory Examination: clear to auscultation. CV Examination: normal. Prophylactic Antibiotics: The patient does not require prophylactic antibiotics. Prior Anticoagulants: The patient has taken Plavix (clopidogrel), last dose was 1 day prior to procedure. ASA Grade Assessment: II - A patient with mild systemic disease. After reviewing the risks and benefits, the patient was deemed in satisfactory condition to undergo the procedure. The anesthesia plan was to use monitored anesthesia care (MAC). Immediately prior to administration of medications, the patient was re-assessed for adequacy to receive sedatives. The heart rate, respiratory rate, oxygen saturations, blood pressure, adequacy of pulmonary ventilation, and response to care were monitored throughout the procedure. The physical status of the patient was re-assessed after the procedure. The Colonoscope was introduced through the anus and advanced to the terminal ileum, with identification of the appendiceal orifice and IC valve. The colonoscopy was performed without difficulty. The patient tolerated the procedure well. The quality of the bowel preparation was fair except the cecum was good. The terminal ileum, ileocecal valve, appendiceal orifice, and rectum were photographed. Scope insertion time was 4 minutes. Scope withdrawal time was 9 minutes. The total duration of the procedure was 14 minutes. Findings: The perianal and digital rectal examinations were normal. The terminal ileum appeared normal. A moderate amount of semi-liquid stool was found from rectum to ascending colon, interfering with visualization. Lavage of the area was performed using a large amount of sterile water, resulting in clearance with fair visualization. A 3 mm polyp was found in the cecum. The polyp was sessile. The polyp was removed with a cold snare. Resection and retrieval were complete. Verification of patient identification for the specimen was done by the physician and nurse using the patient's name, date and medical record number. Estimated blood loss was minimal. Three sessile polyps were found in the rectum. The polyps were 2 to 4 mm in size. These polyps were removed with a cold snare. Resection and retrieval were complete. Non-bleeding external and internal hemorrhoids were found during retroflexion. The hemorrhoids were medium-sized. Impression: - The examined portion of the ileum was normal. - Stool from rectum to ascending colon. - One 3 mm polyp in the cecum, removed with a cold snare. Resected and retrieved. - Three 2 to 4 mm polyps in the rectum, removed with a cold snare. Resected and retrieved. - Non-bleeding external and internal hemorrhoids. Recommendation: - Patient has a contact number available for emergencies. The signs and symptoms of potential delayed complications were discussed with the patient. Return to normal activities tomorrow. Written discharge instructions were provided to the patient. - High fiber diet. - Continue present medications. - Await pathology results. - Repeat colonoscopy in 3 - 5 years for surveillance. - Telephone GI clinic for pathology results in 2 weeks. - Continue Plavix (clopidogrel) at prior dose. Refer to primary physician for further adjustment of therapy. - Return to primary care physician. Tobi Greco MD Tobi Greco MD 11/20/2019 9:53:22 AM Number of Addenda: 0 Note Initiated On: 11/20/2019 9:16 AM Estimated Blood Loss: Estimated blood loss was minimal.
== END 2019-11-20 10:22 | disposition home or self-care (01) ==
LOC: M OPP 08:10
PROVIDERS: ATTEND Internal Medicine Gastroenterology
DX: Z12.11 Encounter for screening for malignant neoplasm of colon (principal); K64.8 Other hemorrhoids; K63.5 Polyp of colon; K62.1 Rectal polyp; E11.9 Type 2 diabetes mellitus without complications; Z79.4 Long term (current) use of insulin; Z79.82 Long term (current) use of aspirin; Z79.899 Other long term (current) drug therapy
CPT/HCPCS: 45385; 88305; J2370

== ENCOUNTER → 2019-11-25 | Outpatient (CLI) | payer BC ==
[~2019-11-25] MED LIST changes: +CLOB0.0526 TOP; +CYCL5TAB PO; +ELIQ5TAB PO; +LISI10TA4 PO; +NAPR-885 PO; +ZOCO80TA PO
[2020-01-17 15:10] LABS: HEMATOCRIT 46.4 % (36.0-47.0); HEMOGLOBIN 15.3 g/dl (12.0-15.5); MEAN CORPUSCULAR HEMOGLOBIN 28.3 pg (27.0-33.0); MEAN CORPUSCULAR VOLUME 85.9 fl (80.0-96.0); PLATELET COUNT, AUTOMATED 344 10^3/uL (150-450); WHITE BLOOD COUNT 7.9 10^3/uL (4.0-10.0)
[2020-01-23 10:17] LABS: BLOOD UREA NITROGEN 16 MG/DL (7-18); CALCIUM LEVEL 9.1 MG/DL (8.5-10.1); CARBON DIOXIDE LEVEL 24 MEQ/L (21-32); CHLORIDE LEVEL 101 MEQ/L (98-107); CREATININE FOR GFR 0.77 MG/DL (0.55-1.30); GLOMERULAR FILTRATION RATE > 60.0 (>51); GLUCOSE, FASTING 325 MG/DL (70-100); POTASSIUM SERUM 4.1 MEQ/L (3.5-5.1); SODIUM LEVEL 134 MEQ/L (136-145)
== END ==
LOC: M LAB 15:13
PROVIDERS: ATTEND Physician Assistant
DX: I70.213 Atherosclerosis of native arteries of extremities with intermittent claudication, bilateral legs (principal)

== ENCOUNTER → 2019-12-01 | Outpatient (CLI) | payer BC ==
[~2019-12-01] MED LIST changes: +HumaLOG INSULIN (NovoLOG) PER UNIT As Ordered ONE; +ISOVUE-300 61% 50ML VIAL As Ordered ONE; +LIDOCAINE 1% MDV 20ML VIAL As Ordered ONE; +MIDAZOLAM INJ 2MG/2ML VIAL (J2250 PER 1MG) As Ordered ONE; +fentaNYL 100 MCG/2 ML INJECTION (J3010) As Ordered ONE
--- NOTE | 2020-02-26 17:27 | ROOPDOC ---
[facility] Report Of Operation Report of Operation DATE OF PROCEDURE: 12/01/19 PREPROCEDURE DIAGNOSES: Atherosclerosis needed artery supplies thalami claudication POSTPROCEDURE DIAGNOSES: Same PROCEDURE: 1. Ultrasound-guided access bilateral common femoral arteries 2. Aortoiliofemoral arteriogram 3. Selection right common femoral artery and superficial femoral artery and right lower extremity runoff 4. Kissing stents bilateral common iliac arteries with 7 x 37 express stents 5. Extension right iliac stents was 7 x 37, 7 x 57, and 6 x 37 express stents into external iliac artery 6. Extension left iliac stent was 7 x 27 express stent 7. Completion arteriograms 8. Mynx closure bilateral common femoral artery SURGEON: Indigo Quesada MD ANESTHESIA: Local anesthesia 8 mL lidocaine. Moderate intravenous conscious sedation was supervised by Dr. Quesada. The patient was independently monitored by registered nurse and signed to the Department of radiology using automated blood pressure, EKG, and pulse oximetry. The detailed sedation record is permanently stored in the hospital information system. The following is a brief sedation record: Start time 07 58, stop time 09:52, Versed 2 mg IV, fentanyl 200 g IV, heparin 5000 units IV. CONTRAST: 82 mL Isovue-300 INDICATION FOR PROCEDURE: This is a very pleasant 49-year-old patient with lifestyle limiting claudication of the right greater than left lower extremity, but definitely claudication in both. Risks benefits and alternatives to an arteriogram potential intervention were explained to the patient she is agreeable to proceed. Informed consent was obtained. INTERPRETATION: 1. The distal aorta and iliac segments are all heavily calcified, diminutive in size, and stenotic, but patent. No occlusions are noted. The heaviest areas of stenosis R at the origin of the common iliac arteries in the distal aorta and in the mid common iliac arteries and the proximal external iliac artery on the right. Both hypogastric arteries are patent. 2. The right common femoral artery is widely patent has good runoff through the profunda and SSA. There is widely patent inflow through the popliteal artery except for some mild 20% stenosis in the proximal portion. There is 3 vessel runoff to the foot, but the posterior tibial artery is the best of the 3 tibials, and the largest. The peroneal artery and anterior tibial artery have more sluggish flow in her diminutive in size but overall all 3 tibials are patent with good flow to the foot. 3. On the right, after stenting from the external iliac artery up to the proximal common iliac artery, no extravasation and widely patent flow was noted. On the left after placement of the 7 x 27 stent in the more distal common iliac artery, widely patent flow was noted. No extravasation or dissection. After kissing stents were used to complete the extension proximally and open up the inflow to the bilateral iliac arteries, there was widely patent flow with a mild dissection of the right lateral aorta into the proximal common iliac artery, improved with 3 angioplasty of the proximal stents. This was not flow-limiting, no extravasation was noted. No embolization was noted. There were excellent pulses in both femoral arteries after stenting. REPORT OF OPERATION: The patient was brought to angiographic suite in stable condition. Her bilateral groins were prepped and draped in sterile fashion. A timeout was performed. Sedation was administered without complication. Local anesthesia was administered to the skin and subcutaneous tissue over the left common femoral artery. A microneedle was used to access the artery and ultrasound guidance and a wire was passed through this access and a 4 Cymro sheath was placed and flushed with saline. A Glidewire and Omni flushed catheter were advanced into the distal aorta and aortoiliofemoral arteriograms were performed. Please interpretation above. We then went up and over the bifurcation and selected the right common femoral artery and right superficial femoral artery and right lower extremity runoff was performed. Please interpretation above. Local anesthesia was a enterprise sales executive to skin and subcutaneous tissue over the right common femoral artery and a microneedle was used to access the artery and ultrasound guidance. A wire was passed through this access and 4 Cymro sheath was placed and flushed with saline. Over Glidewire, both she's for exchanged for 7 Cymro sheath and flushed with saline. On the left is 7 x 27 express stent was placed in the common iliac artery and on the right a 6 x 37 express stent was placed in the external iliac artery and extended proximally with a 7 x 57 express stent, 7 x 37 express stent. Then, 2 7 x 37 express kissing stents were placed at the origins of the common iliac arteries into the aorta. Once deployed, we noted a small dissection on the right side of the aorta that was improved with gentle angioplasty of the proximal stents. Following this there was excellent pulses in both groins and good flow through both femorals. No embolization or extravasation were noted. We then deployed Mynx closure devices in both common femoral arteries and pressure was held for hemostasis. Sterile dressings were applied. The patient was then taken to recovery in stable condition. She tolerated the procedure and the sedation well. ESTIMATED BLOOD LOSS: Approximately 5 mL. COMPLICATIONS: None. PLAN: Okay to resume home diet and medications. No lifting greater than 5 pounds or strenuous exercise for 48 hours. We'll see the patient back in a week to check her groin access sites and see how she is doing with her perfusion. We appreciate the upper chain to participate in the care of this patient. INDIGO QUESADA MD Feb 26, 2020 17:27
== END ==
LOC: M IRPRO 06:31
PROVIDERS: ATTEND Surgery Vascular Surgery
DX: I70.213 Atherosclerosis of native arteries of extremities with intermittent claudication, bilateral legs (principal); I87.2 Venous insufficiency (chronic) (peripheral); I10 Essential (primary) hypertension; E11.9 Type 2 diabetes mellitus without complications; E78.00 Pure hypercholesterolemia, unspecified; F41.9 Anxiety disorder, unspecified; I65.23 Occlusion and stenosis of bilateral carotid arteries; Z79.4 Long term (current) use of insulin; Z79.82 Long term (current) use of aspirin; Z79.84 Long term (current) use of oral hypoglycemic drugs; Z79.899 Other long term (current) drug therapy
CPT/HCPCS: 37221; 75630; 75774; 99152; 99153; C1725; C1760; C1769; C1876; C1887; C1894; J1644; J2250; J3010; Q9967

== ENCOUNTER → 2019-12-08 | Outpatient (CLI) | payer BC ==
[~2019-12-08] MED LIST changes: -HumaLOG INSULIN (NovoLOG) PER UNIT As Ordered ONE; -ISOVUE-300 61% 50ML VIAL As Ordered ONE; -LIDOCAINE 1% MDV 20ML VIAL As Ordered ONE; -MIDAZOLAM INJ 2MG/2ML VIAL (J2250 PER 1MG) As Ordered ONE; -fentaNYL 100 MCG/2 ML INJECTION (J3010) As Ordered ONE
[2020-02-28 08:38] LABS: BLOOD UREA NITROGEN 18 MG/DL (7-18); CREATININE FOR GFR 0.62 MG/DL (0.55-1.30); GLOMERULAR FILTRATION RATE > 60.0 (>51)
== END ==
LOC: M LAB 09:50
PROVIDERS: ATTEND Physician Assistant
DX: I70.213 Atherosclerosis of native arteries of extremities with intermittent claudication, bilateral legs (principal)

== ENCOUNTER 2019-12-13 09:54 | Emergency (ER) | payer BC, OTHER ==
[~2019-12-13] VITALS: Ht 172.7 cm; Wt 86.4 kg
[~2019-12-13 09:54] MED LIST changes: -CLOB0.0526 TOP; -CYCL5TAB PO; -ELIQ5TAB PO; -LISI10TA4 PO; -NAPR-885 PO; -ZOCO80TA PO
[2019-12-13] MEDS ORDERED: LISI10TA4 PO (10:11)
[2019-12-13 10:43] LABS: HEMATOCRIT 39.4 % (36.0-47.0); MEAN CORPUSCULAR HEMOGLOBIN 27.9 pg (27.0-33.0); MEAN CORPUSCULAR VOLUME 84.5 fl (80.0-96.0); PLATELET COUNT, AUTOMATED 349 10^3/uL (150-450); RED BLOOD COUNT 4.66 10^6/uL (4.00-5.40); WHITE BLOOD COUNT 8.1 10^3/uL (4.0-10.0)
[2019-12-13 12:17] LABS: ACETONE/KETONE 5.58 MG/DL (<2.81); BLOOD UREA NITROGEN 15 MG/DL (7-18); CALCIUM LEVEL 9.1 MG/DL (8.5-10.1); CARBON DIOXIDE LEVEL 28 MEQ/L (21-32); CHLORIDE LEVEL 103 MEQ/L (98-107); CREATININE FOR GFR 0.54 MG/DL (0.55-1.30); GLOMERULAR FILTRATION RATE > 60.0 (>51); GLUCOSE, FASTING 297 MG/DL (70-100); POTASSIUM SERUM 3.9 MEQ/L (3.5-5.1); SODIUM LEVEL 138 MEQ/L (136-145)
[2019-12-13] MEDS ORDERED: CYCLOBENZAPRINE 10MG TABLET PO ONE (12:45)
[2019-12-13] MEDS ORDERED: KETOROLAC 30 MG/ML 1ML VIAL IV ONE (12:45)
[2019-12-13] MEDS ORDERED: CYCL5TAB PO (14:26)
[2019-12-13] MEDS ORDERED: NAPR-837 PO (14:26)
[2019-12-13 14:45] VITALS: BP 119/58
--- NOTE | 2020-01-15 10:36 | REP ---
LUMBAR SPINE SERIES: 5-VIEWS HISTORY: Nontraumatic pain. FINDINGS: Monitoring electrodes are seen. Bilateral common and external iliac vascular stents are noted. Vascular calcification is noted. Lumbar vertebral body heights are preserved and alignment is normal. There is mild disc space narrowing at L4- 5 and at L2-3, consistent with early degenerative disc disease. The pedicles and posterior elements are intact. There is no evidence of spondylolysis or spondylolisthesis. No bony destructive lesion is seen. The psoas margins are symmetric. The sacrum and SI joints appear intact. IMPRESSION: Degenerative disc disease at L2-3 and L4-5, mild in degree. Vascular calcification and bilateral iliac artery stents. No acute abnormality. MTDD
== END 2019-12-13 14:55 | disposition home or self-care (01) ==
LOC: M ED 09:54
DX: M51.36 Other intervertebral disc degeneration, lumbar region (principal); M54.17 Radiculopathy, lumbosacral region; E11.9 Type 2 diabetes mellitus without complications; E78.5 Hyperlipidemia, unspecified; I10 Essential (primary) hypertension; Z79.82 Long term (current) use of aspirin; Z79.899 Other long term (current) drug therapy; Z79.4 Long term (current) use of insulin
CPT/HCPCS: 72110; 80048; 82010; 82803; 85027; 96374; 99284; J1885

== ENCOUNTER 2019-12-16 11:57 | Inpatient (IN) | payer BC ==
[~2019-12-16] VITALS: Ht 172.7 cm; Wt 87.0 kg
[~2019-12-16 11:57] MED LIST changes: +CYCL5TAB PO; +LISI10TA4 PO
[2019-12-16] MEDS ORDERED: HEPARIN DRIP 25,000 UNITS in IV 1 EA IV SCH ×3 (12:20→19:49)
[2019-12-16] MEDS ORDERED: HEPARIN SOD (PORCINE) 5000UNITS/ML 1ML VIAL/SYRINGE IV ONE (12:30)
[2019-12-16] MEDS ORDERED: HEPARIN SOD (PORCINE) 5000UNITS/ML 1ML VIAL/SYRINGE IV PRN (12:30)
--- NOTE | 2019-12-16 12:52 | CR.PDOC ---
General Date of Consultation: Dec 16, [address] Quesada. REASON FOR CONSULTATION/CHIEF COMPLAINT: RLE pain HISTORY OF PRESENT ILLNESS: The patient is a 48-year-old female with history of PAD. The patient is status post left lower extremity angiogram as per Dr. Duarte 07/31/17 with left common and external iliac artery stent placement. The patient is status post right lower extremity angiogram on 03/12/[address] Duarte with right common femoral angioplasty, right SFA angioplasty, right profunda angioplasty. The pt is S/P angiogram as per Dr Quesada 12/01/19 with placement of kissing iliac stents. Stents were extended to Aorta. The pt was seen for FU procedure appt 12/08/19 and stated she has been feeling good, no leg pain, no color or temp changes in LEs. No abdominal pain. 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 Numbness developed in the rt foot with rt foot pain, B/L feet were cold per pt. She was seen at [facility] ER with arterial US indicating diffuse monophasic flow in BLEs suggesting proximal Iliac stenosis. The pt was discharged from the ED after treatment for hyperglycemia (BS was in the 500s per pt). The pt had persistent pain in the RLE with persistent numbness in the leg. She was seen at [facility] ED 12/13. Was felt to have lumbar radiculopathy, rx for Flexeril but the pt states this did not help her pain. The pt called Vascular Surgery Wednesday 12/13 reporting her symptoms and that they were persisting. The pt states today that the pain in her Rt leg and foot is burning, cramping, sharp and wakes her up out of sleep, it has been continual, never totally resolving, but better if she sits with her rt leg dependent. Pt states her feet have been cold to touch. Urgent CTA A/P with LE runoff was arranged 12/14 at [facility]. The pt was seen today to discuss results and symptoms. CTA report indicates Rt Iliac stent occlusion with distal re constitution of distal Rt EIA. The pt status is discussed with Dr Quesada. Admission is arranged with Hospitalist for RLE angiogram later today as per Dr Cederstrand, possible angioplasty, possible stent, possible thrombolysis. The pt denies any recent h/o surgery, head trauma,recent CVA, previous h/o bleeding, ICH, intracranial AVM/neoplasm/aneurysm. The pt is a former smoker. The pt is on ASA 81 mg/Plavix/statin. Pt states she has not missed any doses of Plavix. ALLERGIES: Please see below. HOME MEDICATIONS: Please see below. PAST MEDICAL HISTORY: The patient is also noted to have history of chronic venous insufficiency with VVI study in 2018, indicating no superficial or deep reflux in the left lower extremity, minimal reflux seen in the greater saphenous vein on the right at the mid thigh. The patient has h/o carotid stenosis, history of TIA in 2018. carotid US 11/08 right ICA noted to have low flow velocity, however it is patent, PSV Rt ICA was noted to be 30.7, EDV 8.2. No significant stenosis was noted. IDDM HTN HLD Anxiety PAST SURGICAL HISTORY: Tubal Ligation - 1996 Endometriosis - ABLATION 2008 Angiogram - CAROTID ARTERY 08/29/17 LE angiograms FAMILY HISTORY: DM, CAD, HTN SOCIAL HISTORY: former smoker 1 ppd x 30 years quit 2015. REVIEW OF SYSTEMS: as noted in HPI otherwise 11 Pt ROS neg. PHYSICAL EXAMINATION: VITAL SIGNS: Please see below. GENERAL APPEARANCE: NAD. HEENT:MMM. RESPIRATORY: CTA. CARDIOVASCULAR: RRR. ABDOMEN: Soft, NT. EXTREMITIES: The BL feet are cool to touch to the ankles BL. Cap refill at toes >4 secs BL. The pretibial areaas are warm to touch. I am unable to obtain d oppler signal at Rt or Lt DP/PT, popliteal difficult to obtain, soft monophasic signal noted, femoral is palpable. No open wounds. NEUROLOGICAL: no focal deficits. PSYCHIATRIC: A/O x 3. LABORATORY DATA: Please see below. Admission labs pending. Imaging as noted in HPI ASSESSMENT/PLAN: 1. PAD S/P angiogram as per Dr Quesada 12/01/19 with placement of kissing iliac stents. Pt with RLE rest pain since Monday 12/11. CTA 12/15/19 Nrad indicating Rt iliac stent occlusion. the pt is discussed with Dr Quesada. Plan for admission to Hospitalist Service. Direct admission was attempted but related to bed availability the pt was directed to the ED as per Nursing Lawn Care Professional instruction. Pt is discussed with Dr Bellamy in ER. NPO for procedure this evening. HOLD Plavix Begin Heparin. Bolus as per protocol, then gtt as per protocol. Monitor PTT. Anticipate RLE angiogram later today as per Dr Quesada, possible angioplasty, possible stent, possible thrombolysis. The procedure, risks, benefits, alternatives are reviewed with pt, all questions answered. Informed consent obtained and placed with the chart. Pt will need ICU bed for thrombolysis. The pt denies any recent h/o surgery, head trauma,recent CVA, previous h/o bleeding, ICH, intracranial AVM/neoplasm/aneurysm. Vital Signs/I&O Vital Signs Date Time Temp Pulse Resp B/P (MAP) Pulse Ox O2 Delivery O2 Flow Rate FiO2 12/16/19 11:58 97.1 102 22 115/74 (88) 96 Room Air Laboratory Data Labs 24H admission labs pending Allergies Coded Allergies: No Known Allergies (Unverified , 12/13/19) Home Medications Scheduled Aspirin (Aspirin) 81 Mg Chw, 81 MG PO DAILY, (Reported) Clopidogrel Bisulfate (Plavix) 75 Mg Tab, 75 MG PO DAILY, (Reported) Insulin Glargine (Lantus) 100 Unit/1 Ml Vial, 56 UNITS SC QHS, (Reported) Insulin Human Lispro (Novolog) 100 U/Ml Inj, 1 DOSE SC AC, (Reported) PER SLIDING SCALE Lisinopril (Lisinopril) 10 Mg Tablet, 1 TAB PO DAILY for 30 Days, #30 (Reported) Metformin HCl (Metformin HCl ER) 500 Mg Tab, 1,000 MG PO BIDWM, (Reported) Naproxen (Naprosyn) 500 Mg Tablet, 500 MG PO BID, #20 take with food Sertraline Hcl (Sertraline HCl) 25 Mg Tab, 25 MG PO DAILY, #30 Simvastatin - High Dose (Simvastatin) 80 Mg Tab, 80 MG PO QHS, (Reported) Scheduled PRN Alprazolam (Alprazolam) 0.25 Mg Tab, 0.25 MG PO BIDP PRN for ANXIETY, #6 Cyclobenzaprine HCl (Cyclobenzaprine HCl) 5 Mg Tablet, 1 TAB PO TIDP PRN for muscle spasms for 5 Days, #15 Miscellaneous Medications Dapagliflozin Propanediol (Farxiga) 10 Mg Tablet, (Reported) Hydroxyzine HCl (Hydroxyzine HCl) 25 Mg Tablet, (Reported) [place] Al Dec 16, 2019 12:52
[2019-12-16] MEDS ORDERED: NAPR-885 PO (13:26)
[2019-12-16] MEDS ORDERED: ZOCO80TA PO (13:26)
[2019-12-16] MEDS ORDERED: ALPR0.25 PO (13:26)
[2019-12-16] MEDS ORDERED: CYCL5TAB PO (13:26)
[2019-12-16] MEDS ORDERED: LISI10TA4 PO (13:26)
[2019-12-16] MEDS ORDERED: SERT25TA85 PO (13:26)
[2019-12-16 13:34] LABS: BLOOD UREA NITROGEN 14 MG/DL (7-18); CALCIUM LEVEL 9.4 MG/DL (8.5-10.1); CARBON DIOXIDE LEVEL 26 MEQ/L (21-32); CHLORIDE LEVEL 102 MEQ/L (98-107); CREATININE FOR GFR 0.61 MG/DL (0.55-1.30); GLOMERULAR FILTRATION RATE > 60.0 (>51); GLUCOSE, FASTING 350 MG/DL (70-100); POTASSIUM SERUM 4.6 MEQ/L (3.5-5.1); SODIUM LEVEL 137 MEQ/L (136-145)
[2019-12-16] MEDS ORDERED: CYCLOBENZAPRINE 5MG TABLET PO PRN (14:45)
[2019-12-16] MEDS ORDERED: DEXTROSE 50% 50 ML SYRINGE IV PRN (14:45)
[2019-12-16] MEDS ORDERED: hydrOXYzine 25 MG TAB PO PRN (14:45)
[2019-12-16] MEDS ORDERED: GLUCOSE 4GM CHEW TABLET PO PRN (14:45)
[2019-12-16] MEDS ORDERED: GLUCAGON INJ 1MG VIAL SC PRN (14:45)
[2019-12-16] MEDS: LEVEMIR (INSULIN DETEMIR) 1 UNITS/0.01ML SC SCH (14:45)
[2019-12-16 14:59] LABS: HEMATOCRIT 45.2 % (36.0-47.0); HEMOGLOBIN 14.6 g/dl (12.0-15.5); MEAN CORPUSCULAR HEMOGLOBIN 27.8 pg (27.0-33.0); MEAN CORPUSCULAR HGB CONC 32.3 g/dl (32.0-36.5); MEAN CORPUSCULAR VOLUME 86.1 fl (80.0-96.0); PLATELET COUNT, AUTOMATED 329 10^3/uL (150-450); RED BLOOD COUNT 5.25 10^6/uL (4.00-5.40); WHITE BLOOD COUNT 6.8 10^3/uL (4.0-10.0)
--- NOTE | 2019-12-16 15:00 | HPEPDOC ---
[facility] Medical History & Physical Date of Admission Dec 16, 2019 Date of Service: Dec 16, [address] Quesada Attending Physician: JESSICA MCGEE MD History and Physical CHIEF COMPLAINT: Left pain HISTORY OF PRESENT ILLNESS: 49 y/o F with PMHx PAD with iliac artery stent, HTN, DM, diastolic HF presents from Dr. Quesada's office for thrombolysis of occluded iliac artery stent. per medical records: The patient is status post left lower extremity angiogram as per Dr. Duarte 07/31/17 with left common and external iliac artery stent placement. The patient is status post right lower extremity angiogram on 03/12/[address] Duarte with right common femoral angioplasty, right SFA angioplasty, right profunda angioplasty. The pt is S/P angiogram as per Dr Quesada 12/01/19 with placement of kissing iliac stents. Stents were extended to Aorta. The pt was seen for FU procedure appt 12/08/19 and stated she has been feeling good, no leg pain, no color or temp changes in LEs. No abdominal pain. 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 Numbness developed in the rt foot with rt foot pain, B/L feet were cold per pt. She was seen at [facility] ER with arterial US indicating diffuse monophasic flow in BLEs suggesting proximal Iliac stenosis. The pt was discharged from the ED after treatment for hyperglycemia (BS was in the 500s per pt). The pt had persistent pain in the RLE with persistent numbness in the leg. She was seen at [facility] ED 12/13. Was felt to have lumbar radiculopathy, rx for Flexeril but the pt states this did not help her pain. The pt called Vascular Surgery Wednesday 12/13 reporting her symptoms and that they were persisting. The pt states today that the pain in her Rt leg and foot is burning, cramping, sharp and wakes her up out of sleep, it has been continual, never totally resolving, but better if she sits with her rt leg dependent. Pt states her feet have been cold to touch. Urgent CTA A/P with LE runoff was arranged 12/14 at [facility]. The pt was seen today to discuss results and symptoms. CTA report indicates Rt Iliac stent occlusion with distal re constitution of distal Rt EIA. The pt status is discussed with Dr Quesada. Admission is arranged with Hospitalist for RLE angiogram later today as per Dr Quesada, possible angioplasty, possible stent, possible thrombolysis. The pt denies any recent h/o surgery, head trauma,recent CVA, previous h/o bleeding, ICH, intracranial AVM/neoplasm/aneurysm. The pt is a former smoker. The pt is on ASA 81 mg/Plavix/statin. Pt states she has not missed any doses of Plavix. Currently denies pain. No CP/SOB/palpitations. Has occasional lower abd cramping, however none now. Pain only with ambulation. Also ran out of insulin 3 weeks ago, and so has not been taking it. PAST MEDICAL HISTORY: As per HPI The patient is also noted to have history of chronic venous insufficiency with VVI study in 2018, indicating no superficial or deep reflux in the left lower extremity, minimal reflux seen in the greater saphenous vein on the right at the mid thigh. The patient has h/o carotid stenosis, history of TIA in 2018. carotid US 11/08 right ICA noted to have low flow velocity, however it is patent, PSV Rt ICA was noted to be 30.7, EDV 8.2. No significant stenosis was noted. IDDM HTN HLD Anxiety PAST SURGICAL HISTORY: -PE tubes as an infant -tubal ligation 1996 -uterine ablation -in summer 2017 she had left leg iliac stent placed SOCIAL HISTORY: Smoked 1ppd x 30 yrs quit 2015 FAMILY HISTORY: DM. F- heart dz ALLERGIES: Please see below. REVIEW OF SYSTEMS: HEENT: Denies sore throat/headache CARDIOVASCULAR: Denies chest pain/palpitations RESPIRATORY: Denies shortness of breath/cough GASTROINTESTINAL: denies nausea/vomiting GENITOURINARY: Denies dysuria/urinary urgency. MUSCULOSKELETAL: Denies myalgias/arthralgias NEUROLOGICAL: Denies any focal weakness HOME MEDICATIONS: Please see below. PHYSICAL EXAMINATION: Vitals: (see below) General: No acute distress, laying comfortably in bed. HEENT: Moist mucous membranes. Neck: No JVD or lymphadenopathy Cardiac: RRR, No murmurs Pulm: Clear to auscultation b/l. No wheezing, rhonchi Abd: NT/ND + BS Ext: Feet are cool b/l (Notes is typical for her). Cap refill <2sec. Distal pulses diminished. No cyanosis or skin discoloration. No TTP. No wounds LABORATORY DATA: See below. ASSESSMENT/PLAN: 1. PAD S/P angiogram as per Dr Quesada 12/01/19 with placement of kissing iliac stents. Per vascular surg: CTA 12/15/19 Nrad indicating Rt iliac stent occlusion. the pt is discussed with Dr Quesada. NPO for procedure this evening. HOLD Plavix Begin Heparin. Bolus as per protocol, then gtt as per protocol. Monitor PTT. Anticipate RLE angiogram later today as per Dr Quesada, possible angioplast y, possible stent AWAITING ICU BED PLACEMENT PRIOR TO STARTING THROMBOLYSIS. 2. DM - uncontrolled as ran out of insulin. - Decreased Levemir to 25U as pt npo - SSI - Check a1c in am 3. HTN controlled 4. Diastolic HF; compensated 5. Anxiety: xanax prn DVT Prophy: on heparin drip Full code Pt expected to be hospitalized >2midnights for treatment of the above. Admit to ICU when bed available. Vital Signs Vital Signs Date Time Temp Pulse Resp B/P (MAP) Pulse Ox O2 Delivery O2 Flow Rate FiO2 12/16/19 12:46 12/16/19 11:58 97.1 102 22 96 Room Air Laboratory Data Labs 24H Laboratory Tests 2 12/16/19 13:05: Anion Gap 9, Glomerular Filtration Rate > 60.0, Calcium Level 9.4 12/16/19 13:10: Coronavirus (COVID-19)(PCR) NEGATIVE CBC/BMP Laboratory Tests 12/16/19 13:05 Home Medications Scheduled Alprazolam (Alprazolam) 0.25 Mg Tablet, 0.25 MG PO BID Apixaban (Eliquis) 5 Mg Tablet, 5 MG PO BID Aspirin (Aspirin) 81 Mg Chw, 81 MG PO DAILY Dapagliflozin Propanediol (Farxiga) 10 Mg Tablet, 10 MG PO DAILY Insulin Glargine (Lantus) 100 Unit/1 Ml Vial, 56 UNITS SC QHS Insulin Human Lispro (Novolog) 100 U/Ml Inj, 1 DOSE SC AC PER SLIDING SCALE Lisinopril (Lisinopril) 10 Mg Tablet, 10 MG PO DAILY Metformin HCl (Metformin HCl ER) 500 Mg Tab, 1,000 MG PO BIDWM Sertraline Hcl (Sertraline HCl) 25 Mg Tablet, 25 MG PO DAILY Simvastatin (Zocor) 80 Mg Tablet, 80 MG PO QHS Scheduled PRN Cyclobenzaprine HCl (Cyclobenzaprine HCl) 5 Mg Tablet, 5 MG PO TID PRN for SPASMS Hydroxyzine HCl (Hydroxyzine HCl) 25 Mg Tablet, 25 MG PO TID PRN for ANXIETY Allergies Coded Allergies: No Known Allergies (Unverified , 12/13/19) A-FIB/CHADSVASC A-FIB History Current/History of A-Fib/PAF?: No JESSICA MCGEE MD Dec 16, 2019 15:00
[2019-12-16] MEDS ORDERED: fentaNYL 100 MCG/2 ML INJECTION (J3010) As Ordered ONE (17:02)
[2019-12-16] MEDS ORDERED: MIDAZOLAM INJ 2MG/2ML VIAL (J2250 PER 1MG) As Ordered ONE ×2 (17:03→18:37)
[2019-12-16] MEDS ORDERED: ISOVUE-300 61% 50ML VIAL As Ordered ONE (17:03)
[2019-12-16] MEDS ORDERED: LIDOCAINE 1% MDV 20ML VIAL As Ordered ONE ×2 (17:04→17:22)
[2019-12-16] MEDS: HumaLOG INSULIN (NovoLOG) PER UNIT SC SCH ×2 (17:30→21:00)
[2019-12-16] MEDS ORDERED: LIDOCAINE W/EPINEPHRINE 1% 20ML VIAL As Ordered ONE (17:54)
[2019-12-16] MEDS: ALTEPLASE RECOMBINANT 25 MG in NS 225 ML XX SCH (18:30)
[2019-12-16] MEDS ORDERED: ALTEPLASE 2MG/2ML VIAL As Ordered ONE (18:58)
[2019-12-16 20:00] VITALS: BP 159/79
[2019-12-16] MEDS ORDERED: diazePAM 5 MG TAB PO PRN (20:00)
[2019-12-16] MEDS ORDERED: ONDANSETRON 4MG/2ML VIAL IV PRN (20:00)
--- NOTE | 2019-12-16 20:16 | ROOPDOC ---
[facility] Report Of Operation Report of Operation DATE OF PROCEDURE: 12/16/19 PREPROCEDURE DIAGNOSES: 1. Atherosclerosis of the [place] arteries with acute occlusion of iliac artery stents 2. Need for IV access POSTPROCEDURE DIAGNOSES: Same PROCEDURE: 1. Ultrasound-guided access right basilic vein 2. Placement of a non-tunneled 42 cm dual lumen PICC line 3. Ultrasound-guided access left brachial artery 4. Aortoiliofemoral arteriogram 5. Cross thrombosis occlusion of right iliac and femoral artery 6. Selection right superficial femoral artery and arteriogram 7. Placement of a 30 cm infusion length TPA thrombolysis catheter from distal aorta to right superficial femoral artery through occluded stent SURGEON: Indigo Quesada MD ANESTHESIA: Local anesthesia 16 mL lidocaine. Moderate intravenous conscious sedation was supervised by Dr. Quesada. The patient was independently monitored by registered nurse assigned to the Department of radiology using automated blood pressure, EKG, and pulse oximetry. The details sedation record is permanently stored in the hospital information system. The following is a brief sedation record: Start time 17:51, stop time 19:27, Versed 2 mg IV, fentanyl 50 g IV. CONTRAST: 15 mL [id number] INDICATION FOR PROCEDURE: This is very pleasant 49-year-old patient with severe peripheral vascular disease who underwent stenting of near occlusions in the iliac vessels. Initially, the patient did very well and had significant improvement in her lower extremity perfusion, however, 5 days ago she had acute pain in her right lower extremity. She was seen at 2 ERs and told that she had lumbar radiculopathy, but and she called our office on Saturday and I was concerned that there may be a problem with her stents. We sent her for CTA and this confirmed that there was a complete occlusion of her right iliac stents, as well as thrombosis down to the common femoral artery. On the left, there was partial occlusion of her iliac stent as well. I discussed the risk benefits and alternatives to PICC line placement so the patient had good IV access and a easy access for lab draws, and placement of a TPA thrombolysis catheter to try to restore perfusion through her occluded iliac stents. The patient was extensively counseled and questioned about bleeding risks. She was agreeable to proceed. Informed consent was obtained. INTERPRETATION: 1. Successful placement of a 42 cm dual lumen non-tunneled PICC line with the tips freely mobile in the right atrium, no kinks in the catheter, and no pneumothorax. 2. The distal aorta and inferior mesenteric artery are widely patent. The right iliac stent has minimal trickle flow only, with minimal trickle flow down through the proximal common femoral artery and then good flow through the common femoral artery into the profunda in the SFA. The left iliac stent has a bit more slow, but also has some proximal thrombosis, and then flow was restored through the external iliac artery and the common femoral artery. 3. After crossing the occluded right iliac stents, we selected the right superficial femoral artery and arteriogram confirmed we're in the true lumen. We then successfully placed a 30 cm infusion length thrombolysis catheter across from the aorta to the right superficial femoral artery. REPORT OF OPERATION: The patient was brought to the angiographic suite in stable condition. Her right upper extremity was prepped and draped in a sterile fashion. A timeout was performed. Sedation was administered without complication. Ultrasound was used to gain access to the right basilic vein with a microneedle. A wire was passed through this access and the needle was removed. The PICC line sheath was placed over the wire using a Seldinger technique. The wire was advanced until the tip was at the right atrial SVC junction. The catheter was cut to the appropriate length of 42 cm. We then removed the inner cannula and the wire and the catheter was advanced through the sheath into the central system. Both ports irineo back and flushed easily. We then secured the catheter with appropriate dressings. All IV fluids were switched to the PICC line at this point. The additional port was heparin locked. Next, we prepped and draped the left upper extremity in a sterile fashion. Local anesthesia was a general accounting clerk to the skin and subcutaneous tissue over the brachial artery and a microneedle was used to access the artery under ultrasound guidance. A wire was passed through this access and the needle was removed and a 4 Latvian sheath was placed and flushed with saline. We then advanced a Glidewire through the sheath into the aorta and down through the descending aorta, down to the infrarenal aorta to the iliac stents. A Gleich cath was placed over the wire and will utilize a Gleich cath to perform an aortoiliofemoral arteriogram. Please see interpretation above. We then tried to navigate the Glidewire in the Gleich cath across the occlusion in the right iliac stent. Unfortunately, this proved very difficult. We exchange the catheter for a Navicross catheter and after some effort, we were able to advance the wire through the thrombosed stents. Once we were across, into the SFA, we confirmed we were in the true lumen with the quick arteriogram from selection of the right SFA. Next, we exchanged the sheath over the wire for a 6 Latvian 65 cm sheath. This was flushed with saline and then we advanced a 30 cm 4 Latvian infusion length catheter over the wire across the right iliac stent occlusions. The tip of the catheter was in the right superficial femoral artery and the proximal aspect of the catheter was in the aorta. 4 mg of TPA was administered. We then began a TPA drip at 1 mg an hour. We began a heparin drip at 400 units an hour, no titration, at the brachial artery sheath to maintain sheath patency. We then secured the catheter and the sheath was sterile dressings and an arm board was padded and placed to prevent bending of the arm to minimize bruising and minimize the chance of a brachial sheath hematoma. Subsequently the patient was then taken to recovery and then to the ICU in stable condition. She tolerated the procedure and the sedation well. ESTIMATED BLOOD LOSS: Approximately 5 mL. COMPLICATIONS: None. PLAN: The patient will be in the ICU on bed rest, but it is okay to raise the head of the bed 30-45. The catheter is across the right iliofemoral system, but should still be functional with mild bending at the groin. Otherwise, the patient should keep the right lower extremity relatively straight to minimize risk of bleeding and bruising. The left arm should also be relatively straight to minimize bleeding and bruising. We may decide to bring the patient back in the morning, possibly for repositioning of the TPA thrombolysis catheter into the left iliofemoral system, possibly removal of the TPA thrombolysis catheter, or we may bring the patient back later in the afternoon depending on her progress. She will need to be nothing by mouth after midnight. Eventually, our plan is to restent the iliacs with covered stents and the patient will likely need full anticoagulation since she thrombosed her stents only a few weeks after placement. We appreciate the opportunity to participate in the care of this patient. INDIGO QUESADA MD Dec 16, 2019 20:16
[2019-12-16] MEDS: PERCOCET 5MG/325MG TAB PO PRN (21:07)
[2019-12-16] MEDS: ALPRAZolam 0.25 MG TAB PO SCH (21:07)
[2019-12-16] MEDS: SIMVASTATIN 40 MG TAB PO SCH (21:07)
[2019-12-16 23:00] VITALS: BP 121/57
[2019-12-17] VITALS (18 sets, daily range): BP systolic 108–142; BP diastolic 39–71
[2019-12-17] MEDS: PERCOCET 5MG/325MG TAB PO PRN ×3 (01:45→21:26)
[2019-12-17 05:33] LABS: HEMATOCRIT 39.2 % (36.0-47.0); HEMOGLOBIN 13.2 g/dl (12.0-15.5); MEAN CORPUSCULAR HEMOGLOBIN 29.6 pg (27.0-33.0); MEAN CORPUSCULAR HGB CONC 33.7 g/dl (32.0-36.5); MEAN CORPUSCULAR VOLUME 87.9 fl (80.0-96.0); PLATELET COUNT, AUTOMATED 303 10^3/uL (150-450); RED BLOOD COUNT 4.46 10^6/uL (4.00-5.40); WHITE BLOOD COUNT 6.9 10^3/uL (4.0-10.0)
[2019-12-17 06:02] LABS: BLOOD UREA NITROGEN 10 MG/DL (7-18); CALCIUM LEVEL 7.3 MG/DL (8.5-10.1); CARBON DIOXIDE LEVEL 25 MEQ/L (21-32); CHLORIDE LEVEL 104 MEQ/L (98-107); CREATININE FOR GFR 0.44 MG/DL (0.55-1.30); GLOMERULAR FILTRATION RATE > 60.0 (>51); GLUCOSE, FASTING 229 MG/DL (70-100); POTASSIUM SERUM 4.4 MEQ/L (3.5-5.1); SODIUM LEVEL 135 MEQ/L (136-145)
[2019-12-17] MEDS ORDERED: MIDAZOLAM INJ 2MG/2ML VIAL (J2250 PER 1MG) As Ordered ONE ×3 (06:52→17:03)
[2019-12-17] MEDS ORDERED: fentaNYL 100 MCG/2 ML INJECTION (J3010) As Ordered ONE ×3 (06:52→17:03)
[2019-12-17] MEDS ORDERED: ISOVUE-300 61% 50ML VIAL As Ordered ONE ×2 (06:53→14:39)
[2019-12-17] MEDS ORDERED: LIDOCAINE 1% MDV 20ML VIAL As Ordered ONE ×2 (06:53→14:40)
[2019-12-17] MEDS: HumaLOG INSULIN (NovoLOG) PER UNIT SC SCH ×4 (07:30→21:00)
[2019-12-17] MEDS ORDERED: HumaLOG INSULIN (NovoLOG) PER UNIT As Ordered ONE (07:40)
[2019-12-17] MEDS ORDERED: LIDOCAINE W/EPINEPHRINE 1% 20ML VIAL As Ordered ONE ×2 (07:40→14:38)
[2019-12-17] MEDS ORDERED: ceFAZolin 1GM VIAL (J0690 PER 500MG) As Ordered ONE ×2 (07:41→14:53)
[2019-12-17] MEDS: ALTEPLASE RECOMBINANT 25 MG in NS 225 ML XX SCH (09:00)
[2019-12-17] MEDS: LEVEMIR (INSULIN DETEMIR) 1 UNITS/0.01ML SC SCH (09:00)
--- NOTE | 2019-12-17 09:06 | ROOPDOC ---
[facility] Report Of Operation Report of Operation DATE OF PROCEDURE: 12/17/19 PREPROCEDURE DIAGNOSES: Atherosclerosis of the [place] arteries with occlusion iliac artery stents status post TPA thrombolysis catheter placement POSTPROCEDURE DIAGNOSES: Same PROCEDURE: 1. Aortoiliofemoral arteriogram through existing 6 Serbian sheath and thrombolysis catheter 2. Removal TPA thrombolysis catheter 3. Extension right iliac stents with 6 x 100 Innova stent from distal external iliac artery to proximal external iliac artery and post dilation was 6 x 200 [place] balloon 4. Completion arteriograms 5. Replacement TPA thrombolysis catheter 6. Continuation TPA thrombolysis distal aorta through right iliac and proximal femoral arterial system, 30 cm infusion length SURGEON: Indigo Quesada MD ANESTHESIA: Moderate intravenous conscious sedation was supervised by Dr. Quesada. The patient was independently monitored by registered nurse assigned to the Department of radiology using automated blood pressure, EKG, and pulse oximetry. The detailed sedation record is permanently stored in the hospital information system. The following is a brief sedation record: Start time 07:41, stop time 08:39, Versed 1.5 mg IV, fentanyl 75 g IV, tPA 11 mg IV. CONTRAST: 50 mL Isovue-300 INDICATION FOR PROCEDURE: This a very pleasant 49-year-old patient with severe atherosclerosis the [place] artery status post bilateral iliac artery stents who subsequently thrombosed her stents. Risks benefits and alternatives to a planned repeat arteriogram today, after placement of a TPA thrombolysis catheter yesterday, were explained to the patient she is agreeable to proceed. It is possible we will restart the proximal iliac arteries with covered stents, it is possible we will extend the stent in the external iliac arteries, it is possible we will discontinue or continue the TPA thrombolysis. If that is discontinued, I discussed with the patient that we would need to do a brachial artery cutdown for direct repair of the artery and evacuation of any clot present in the brachial artery sheath. She is agreeable to all of this. Informed consent was obtained. INTERPRETATION: 1. There is good flow through the distal aorta and through the left iliac system with scant residual thrombus noted at the proximal left iliac stent. No significant left iliac or proximal femoral stenosis noted. However, on the right , there is still a small amount of visible plaque in the proximal right iliac stent, with fairly patent flow through the distal common iliac and external iliac stent, but distal to the stent in the proximal right external iliac there is approximately 80% diffuse stenosis down to the common femoral artery. The right common femoral artery appears widely patent with good outflow through the profunda in the SFA. 2. After stenting the distal external iliac artery from the pelvic rim to the distal common iliac artery with a 6 x 100 Innova stent and post dilating with a 6 balloon, the patient had widely patent outflow, but I still felt there was too much thrombus proximally at this point to safely place covered stents. Therefore, we will continue TPA thrombolysis at this time. REPORT OF OPERATION: The patient was brought to the angiographic suite in stable condition. Her bilateral groins and left upper extremity including the TPA thrombolysis catheter in the sheath were prepped and draped in sterile fashion. A timeout was performed. Sedation was administered without complication. Arteriograms of the aortoiliofemoral segments were obtained through the sheath and through the thrombolysis catheter. Please interpretation above. Due to some residual thrombus at the proximal right iliac stent, we gave 11 mg of TPA taken from our overnight infusion, and injected this through the catheter. Following this, a wire was then passed through the thrombolysis catheter and the catheter was removed. We then selected a 6 x 100 Innova stent and deployed this from the distal external iliac artery to the distal common iliac artery and postdilated with a 6 x 200 Benton balloon. Following this are is widely patent flow through the external iliac artery and common femoral artery, no residual stenosis or extravasation noted, but still a moderate amount of thrombus at the right proximal iliac artery stent. Because of this, I felt it would be best to continue TPA thrombolysis for a few more hours to see if we can get some of the thrombus to resolve before placing covered stents. We therefore placed the thrombolysis catheter over the wire and restarted the TPA thrombolysis 1 mg an hour through the catheter. A heparin drip was restarted at 400 units an hour, no titration, through the sheath. Sterile dressings were applied. The patient was then taken to recovery and back to the ICU in stable condition. She tolerated the procedure and the sedation well. ESTIMATED BLOOD LOSS: Approximately 5 mL. COMPLICATIONS: None. PLAN: There is still a small amount of thrombus present at the origin of the left iliac stent, and a moderate amount of thrombus present at the origin of the right iliac stent. Before placing covered stents, we would like to hopefully alleviate some of this clot burden with additional TPA. We will plan to bring the patient back this afternoon for repeat arteriogram, possible placement of covered iliac artery stents. She will require a cutdown over the brachial artery sheath for direct repair of the artery and removal of any thrombus within the brachial sheath. INDIGO QUESADA MD Dec 17, 2019 09:06
[2019-12-17] MEDS ORDERED: SODIUM CHLORIDE 0.9% INJ 10 ML SYR IV PRN (09:30)
[2019-12-17] MEDS: ALPRAZolam 0.25 MG TAB PO SCH ×2 (09:53→22:41)
[2019-12-17] MEDS: ASPIRIN 81 MG CHEW TABLET PO SCH (09:53)
[2019-12-17] MEDS: SERTRALINE HCL 25 MG TABLET PO SCH (09:54)
[2019-12-17 16:34] LABS: HEMATOCRIT 41.4 % (36.0-47.0); HEMOGLOBIN 13.1 g/dl (12.0-15.5); MEAN CORPUSCULAR HEMOGLOBIN 28.1 pg (27.0-33.0); MEAN CORPUSCULAR HGB CONC 31.6 g/dl (32.0-36.5); MEAN CORPUSCULAR VOLUME 88.7 fl (80.0-96.0); PLATELET COUNT, AUTOMATED 278 10^3/uL (150-450); RED BLOOD COUNT 4.67 10^6/uL (4.00-5.40); WHITE BLOOD COUNT 5.8 10^3/uL (4.0-10.0)
--- NOTE | 2019-12-17 17:57 | IPNPDOC ---
Text Note Date of Service The patient was seen on 12/17/19. NOTE Subjective: Pt feels well. Denies any pain. Tolerating tpa. no bleeding. Notes increased sensation R>L LE. PHYSICAL EXAMINATION: Vitals: (see below) General: No acute distress, laying comfortably in bed. HEENT: Moist mucous membranes. Neck: No JVD or lymphadenopathy Cardiac: RRR, No murmurs Pulm: Clear to auscultation b/l. No wheezing, rhonchi Abd: NT/ND + BS Ext: BLE are warm compared to yesterday. Cap refill <2sec. Distal pulses diminished; notable on doppler. No cyanosis or skin discoloration. No TTP. No wounds LABORATORY DATA: See below. ASSESSMENT/PLAN: 1. PAD S/P angiogram as per Dr Quesada 12/01/19 with placement of kissing iliac stents. Per vascular surg: CTA 12/15/19 Nrad indicating Rt iliac stent occlusion. the pt is discussed with Dr Quesada. NPO for procedure this evening. HOLD Plavix Begin Heparin. Bolus as per protocol, then gtt as per protocol. Monitor PTT. Anticipate RLE angiogram later today as per Dr Quesada, possible a ngioplasty, possible stent 12/[address] Quesada PROCEDURE: 1. Aortoiliofemoral arteriogram through existing 6 English sheath and thrombolysis catheter 2. Removal TPA thrombolysis catheter 3. Extension right iliac stents with 6 x 100 Innova stent from distal external iliac artery to proximal external iliac artery and post dilation was 6 x 200 [place] balloon 4. Completion arteriograms 5. Replacement TPA thrombolysis catheter 6. Continuation TPA thrombolysis distal aorta through right iliac and proximal femoral arterial system, 30 cm infusion length PLAN: There is still a small amount of thrombus present at the origin of the left iliac stent, and a moderate amount of thrombus present at the origin of the right iliac stent. Before placing covered stents, we would like to hopefully alleviate some of this clot burden with additional TPA. We will plan to bring the patient back this afternoon for repeat arteriogram, possible placement of covered iliac artery stents. She will require a cutdown over the brachial artery sheath for direct repair of the artery and removal of any thrombus within the brachial sheath. 2. DM - uncontrolled as ran out of insulin. - Decreased Levemir to 25U as pt npo - SSI - Check a1c in am 3. HTN controlled 4. Diastolic HF; compensated 5. Anxiety: xanax prn DVT Prophy: on heparin drip Full code VS,Fishbone, I+O VS, Fishbone, I+O Laboratory Tests 12/17/19 05:00 12/17/19 14:47 Vital Signs Date Time Temp Pulse Resp B/P (MAP) Pulse Ox O2 Delivery O2 Flow Rate FiO2 12/17/19 17:15 93 16 97 Nasal Cannula 4 12/17/19 14:15 97.9 12/17/19 13:00 108/58 (75) I&O- Last 24 Hours up to 6 AM 12/17/19 06:00 Intake Total 770 ml Output Total 0 ml Balance 770 ml JESSICA MCGEE MD Dec 17, 2019 17:57
[2019-12-17] MEDS: SODIUM CHLORIDE 0.9% INJ 10 ML SYR IV SCH (18:00)
--- NOTE | 2019-12-17 18:44 | ROOPDOC ---
[facility] Report Of Operation Report of Operation DATE OF PROCEDURE: 12/17/19 PREPROCEDURE DIAGNOSES: Atherosclerosis of the [place] arteries with occlusion iliac artery stents status post TPA thrombolysis catheter placement POSTPROCEDURE DIAGNOSES: Same PROCEDURE: 1. Aortoiliofemoral arteriogram through existing 6 Cymro sheath and thrombolysis catheter 2. Removal TPA thrombolysis catheter 3. Ultrasound-guided access bilateral common femoral arteries 4. Placement of bilateral proximal iliac distal aorta kissing stents, 8 x 39 VBX stents 5. Angioplasty infrarenal aorta with two 8 x 39 balloons 6. Completion arteriograms 7. Mynx closure bilateral common femoral artery 8. Open surgical cutdown left brachial artery and closure arteriotomy after sheath removal SURGEON: Indigo Quesada MD ANESTHESIA: Local anesthesia 27 mL lidocaine. Moderate intravenous conscious sedation was supervised by Dr. Quesada. The patient was independently monitored by registered nurse assigned to the Department of radiology using automated blood pressure, EKG, and pulse oximetry. The detailed sedation record is permanently stored in the hospital information system. The following is a brief sedation record: Start time 15:50, stop time 17:56, Versed 3 mg IV, fentanyl 125 g IV, heparin 2000 units IV. CONTRAST: 52 mL Isovue-300 INDICATION FOR PROCEDURE: This a very pleasant 49-year-old patient with severe atherosclerosis the [place] artery status post bilateral iliac artery stents who subsequently thrombosed her stents. Risks benefits and alternatives to a planned repeat arteriogram this afternoon, after placement of a TPA thrombolysis catheter yesterday and repeat arteriogram earlier today, were explained to the patient she is agreeable to proceed. It is possible we will restent the proximal iliac arteries with covered stents, it is possible we will extend the stent in the external iliac arteries, it is possible we will discontinue the TPA thrombolysis. If that is discontinued, I discussed with the patient that we would need to do a brachial artery cutdown for direct repair of the artery and evacuation of any clot present in the brachial artery sheath. She is agreeable to all of this. Informed consent was obtained. INTERPRETATION: 1. There is good flow through the distal aorta and through the bilateral iliac system with scant residual thrombus noted at the proximal bilateral iliac stent. There is widely patent flow through the distal common iliac arteries and external iliac arteries into the common femoral arteries bilaterally. 2. After placement of balloon expandable covered kissing stents in the distal aorta and proximal common iliac arteries, there is widely patent flow through the bilateral iliac systems with no residual thrombus or stenosis noted. We did note a small aortic dissection along the left side, from heavy calcified plaque, and this was present at the last procedure as well. In order to alleviate the dissection, the 8 x 39 balloons were placed more proximally to the stents but inferior to the renal arteries and inflated for 3 minutes. Following this the dissection had resolved and there was widely patent flow through the distal aorta into the iliacs. REPORT OF OPERATION: The patient was brought to the angiographic suite in stable condition. Her bilateral groins and left upper extremity including the TPA thrombolysis catheter in the sheath were prepped and draped in sterile fashion. A timeout was performed. Sedation was administered without complication. Arteriograms of the aortoiliofemoral segments were obtained through the sheath and through the thrombolysis catheter. Please interpretation above. Ultrasound was used to guide access to the left common femoral artery with a microneedle after anesthetizing with local anesthesia. A wire was passed through this access and the needle was removed. A 4 Cymro sheath was placed and flushed with saline. A Glidewire was advanced through this into the central system. Over the wire, the sheath was exchanged for a 7 Cymro sheath and flushed with saline. We then performed in identical sheath placement in the right common femoral artery. Once we had bilateral axis and Glidewire through each iliac system into the distal aorta, we advanced 8 x 39 balloon expandable covered stents and deployed them 1 cm more proximal than the existing stent with gentle inflation. Following this there was widely patent flow through the iliac system with no residual thrombus or stenosis noted. We did note a small aortic dissection along the left side, from heavy calcified plaque, and this was present at the last procedure as well. In order to alleviate the dissection, the 8 x 39 balloons were placed more proximally to the stents but inferior to the renal arteries and inflated for 3 minutes. Following this the dissection had resolved and there was widely patent flow through the distal aorta into the iliacs. Next, Mynx closure devices were deployed at each of the femoral arteries and pressure was held for 10 minutes and sterile dressings were applied. Local anesthesia was then administered over the brachial artery proximal to the sheath in the left upper extremity. A knife was used to incise the skin longitudinally proximal to the sheath. This was then carried down through the tissues were sharp dissection. The brachial artery was skeletonized proximally and distally. This took a bit of time due to mild hematoma in the area from the sheath. Atraumatic clamps were placed proximal and distally and the sheath was removed carefully. The arteriotomy was flushed with saline. No thrombus was noted. We had good for bleeding him back bleeding from the brachial artery. We again irrigated with heparinized saline. A 6-0 Prolene suture was used to carefully close the arteriotomy in a horizontal fashion. Before the final sutures were placed, we flushed the inflow in the outflow of the artery and again irrigated with heparinized saline. We then placed her final sutures and restored flow and there was a good pulses at the radial artery and a good pulse in the brachial artery. We then irrigated with copious amounts of saline. There was some mild venous oozing, and a small piece of Surgicel and pressure were used for hemostasis. Irrigation was again used with normal saline, and the deep fascia was approximated with running 4-0 Vicryl suture, the more superficial fascia was closed with running 4-0 Vicryl suture, and the deep dermal layer was approximated with interrupted 4-0 Vicryl suture. The skin was closed with a running 4-0 subcuticular Monocryl suture. Counts were correct at the end of the case. The skin was clean and dry and Mastisol and Steri-Strips were placed the length of the incision and then the Steri-Strips were covered wi th a 4 x 4 and Tegaderm. The patient was then transferred to recovery and back to the ICU in stable condition. She's tolerated the procedure and the sedation well. ESTIMATED BLOOD LOSS: Approximately 25 mL. COMPLICATIONS: None. PLAN: The patient will return to the ICU. Tonight, she will have a single dose of Plavix. Tomorrow, if she doesn't have any bleeding episodes overnight, we will start eliquis in the morning. I like her to be on full anticoagulation since she thrombosed her last stents only a month after placement. It's okay for her to have a regular diet. I'd like her to be on bed rest overnight to minimize risk of hematoma or bleeding from the groins or her brachial access site. Minimize activity over the next 72 hours to minimize risk of bruising or hematoma formation. No lifting greater than 5 pounds, no strenuous exercise. If the patient does well tomorrow, and does well after the eliquis, she likely will be able to go home tomorrow afternoon. We appreciate the opportunity to participate in the care of this patient. INDIGO QUESADA MD Dec 17, 2019 18:44
[2019-12-17] MEDS ORDERED: CLOPIDOGREL 75 MG TAB PO ONE (19:00)
[2019-12-17] MEDS ORDERED: NS 1,000 ML IV SCH (19:00)
[2019-12-17] MEDS: SIMVASTATIN 40 MG TAB PO SCH (21:26)
[2019-12-17] MEDS ORDERED: PERCOCET 5MG/325MG TAB PO ONE (23:00)
[2019-12-18] VITALS (8 sets, daily range): BP systolic 110–143; BP diastolic 61–83
[2019-12-18] MEDS: PERCOCET 5MG/325MG TAB PO PRN (04:27)
[2019-12-18 04:46] LABS: HEMATOCRIT 39.3 % (36.0-47.0); HEMOGLOBIN 12.4 g/dl (12.0-15.5); MEAN CORPUSCULAR HEMOGLOBIN 28.2 pg (27.0-33.0); MEAN CORPUSCULAR HGB CONC 31.6 g/dl (32.0-36.5); MEAN CORPUSCULAR VOLUME 89.3 fl (80.0-96.0); PLATELET COUNT, AUTOMATED 260 10^3/uL (150-450); WHITE BLOOD COUNT 6.5 10^3/uL (4.0-10.0)
[2019-12-18 05:01] LABS: HEMOGLOBIN A1c 13.7 %
[2019-12-18 05:15] LABS: BLOOD UREA NITROGEN 7 MG/DL (7-18); CALCIUM LEVEL 7.9 MG/DL (8.5-10.1); CARBON DIOXIDE LEVEL 23 MEQ/L (21-32); CHLORIDE LEVEL 106 MEQ/L (98-107); CREATININE FOR GFR 0.45 MG/DL (0.55-1.30); GLOMERULAR FILTRATION RATE > 60.0 (>51); GLUCOSE, FASTING 216 MG/DL (70-100); POTASSIUM SERUM 4.2 MEQ/L (3.5-5.1); SODIUM LEVEL 138 MEQ/L (136-145)
[2019-12-18] MEDS: SODIUM CHLORIDE 0.9% INJ 10 ML SYR IV SCH (06:33)
[2019-12-18] MEDS: ALPRAZolam 0.25 MG TAB PO SCH (09:00)
[2019-12-18] MEDS: SERTRALINE HCL 25 MG TABLET PO SCH (09:00)
[2019-12-18] MEDS: ASPIRIN 81 MG CHEW TABLET PO SCH (09:00)
[2019-12-18] MEDS ORDERED: APIXABAN 5 MG TAB (ELIQUIS) PO SCH (09:00)
[2019-12-18] MEDS: LEVEMIR (INSULIN DETEMIR) 1 UNITS/0.01ML SC SCH (09:02)
[2019-12-18] MEDS: HumaLOG INSULIN (NovoLOG) PER UNIT SC SCH ×2 (09:03→13:29)
--- NOTE | 2019-12-18 10:03 | IPNPDOC ---
Text Note Date of Service The patient was seen on 12/18/19. NOTE Vascular Surgery. Dr nolan. The pt is a 49 yo female S/P angiogram as per Dr Nolan 12/01/19 with placement of kissing iliac stents. Stents were extended to Aorta. The pt was seen for FU of CTA results indicating occlusion of iliac stents 12/16/19 and admission arranged. The pt is S/P TPA thrombolysis distal aorta through right iliac and proximal femoral arterial system 12/16/19, discontinuation of thrombolysis catheter and placement of bilateral proximal iliac distal aorta kissing stents 12/17/[address] Nolan. This morning the pt states she is feeling much better. She states her feet are feeling warm and she is no longer having pain in the RLE. Acces site LUE is wrapped with SAMUEL wrap. No bleeding or hematoma groin access sites. Biphasic doppler signals DP/PT BL. Feet are warm to touch and well perfused. Plan is for the pt to be on full anticoagulation since she thrombosed her last stents only a month after placement. Regular diet. Minimize activity over the next 72 hours to minimize risk of bruising or hematoma formation. No lifting greater than 5 pounds, no strenuous exercise. She will possibly be able to go home this afternoon. Outpt FU with Vascular surgery next week. Continue ASA/Eliquis/Zocor. VS,Fishbone, I+O VS, Fishbone, I+O Laboratory Tests 12/17/19 14:47 12/18/19 04:22 Vital Signs Date Time Temp Pulse Resp B/P (MAP) Pulse Ox O2 Delivery O2 Flow Rate FiO2 12/18/19 06:00 83 18 114/64 (81) 94 Room Air 12/18/19 04:00 97.8 12/17/19 17:50 4 I&O- Last 24 Hours up to 6 AM 12/18/19 06:00 Intake Total 1230 ml Output Total 2600 ml Balance -1370 ml [place] Al Dec 18, 2019 10:03
--- NOTE | 2019-12-18 10:41 | IPNPDOC ---
Date Seen The patient was seen on 12/18/19. Progress Note Pt seen and examined this morning. Doing very well. No c/o pain, just c/o being hungry. Groin access sites are c/d/i and no bruising or hematoma noted. BLE are warm and well perfused. BARBARA has stable bruising s/p cutdown for sheath removal and repair arteriotomy brachial artery. Today, we will start eliquis, and see how she does. IF no new bruising/bleeding of concern, and if she is able to amb ulate safely, ok for d/c home today. Patient is looking forward to that. Will d/w hospitalist team. VS, I&O, 24H, Fishbone Vital Signs/I&O Vital Signs Date Time Temp Pulse Resp B/P (MAP) Pulse Ox O2 Delivery O2 Flow Rate FiO2 12/18/19 06:00 83 18 114/64 (81) 94 Room Air 12/18/19 04:00 97.8 12/17/19 17:50 4 I&O- Last 24 Hours up to 6 AM 12/18/19 06:00 Intake Total 1230 ml Output Total 2600 ml Balance -1370 ml Laboratory Data 24H LABS Laboratory Tests 2 12/17/19 10:45: Fibrinogen 329 12/17/19 14:47: Nucleated Red Blood Cells % (auto) 0.0 12/18/19 04:22: Nucleated Red Blood Cells % (auto) 0.0, Anion Gap 9, Glomerular Filtration Rate > 60.0, Estimated Mean Plasma Glucose 346H, Hemoglobin A1c 13.7, Calcium Level 7.9L CBC/BMP Laboratory Tests 12/17/19 14:47 12/18/19 04:22 INDIGO YANES MD Dec 18, 2019 10:41
[2019-12-18] MEDS ORDERED: LEVEMIR (INSULIN DETEMIR) 1 UNITS/0.01ML SC ONE (10:45)
[2019-12-18] MEDS ORDERED: ELIQ5TAB PO (13:02)
[2019-12-18] MEDS ORDERED: INSULANT SC (14:51)
--- NOTE | 2019-12-18 16:18 | DS.PDOC ---
Discharge Summary General Date of Admission Dec 16, 2019 at 14:31 Date of Discharge 12/18/19 Attending Physician: JESSICA MCGEE MD Specialist/Consultants Involve: INDIGO QUESADA MD Discharge Summary PROCEDURES PERFORMED DURING STAY: ADMITTING/DISCHARGE DIAGNOSES: 1. PAD S/P angiogram as per Dr Quesada 12/01/19 with placement of kissing iliac stents. Per vascular surg: CTA 12/15/19 Nrad indicating Rt iliac stent occlusion. the pt is discussed with Dr Quesada. NPO for procedure this evening. HOLD Plavix Begin Heparin. Bolus as per protocol, then gtt as per protocol. Monitor PTT. Anticipate RLE angiogram later today as per Dr Quesada, possible angioplasty, possible stent 12/[address] Quesada PROCEDURE: 1. Aortoiliofemoral arteriogram through existing 6 Angolan sheath and thrombolysis catheter 2. Removal TPA thrombolysis catheter 3. Extension right iliac stents with 6 x 100 Innova stent from distal external iliac artery to proximal external iliac artery and post dilation was 6 x 200 Ty Ty balloon 4. Completion arteriograms 5. Replacement TPA thrombolysis catheter 6. Continuation TPA thrombolysis distal aorta through right iliac and proximal femoral arterial system, 30 cm infusion length PLAN: There is still a small amount of thrombus present at the origin of the left iliac stent, and a moderate amount of thrombus present at the origin of the right iliac stent. Before placing covered stents, we would like to hopefully alleviate some of this clot burden with additional TPA. We will plan to bring the patient back this afternoon for repeat arteriogram, possible placement of covered iliac artery stents. She will require a cutdown over the brachial artery sheath for direct repair of the artery and removal of any thrombus within the brachial sheath. 2. DM - uncontrolled as ran out of insulin. - Restarted on her long acting insulin 3. HTN controlled 4. Diastolic HF; compensated 5. Anxiety: xanax prn COMPLICATIONS/CHIEF COMPLAINT: HISTORY OF PRESENT ILLNESS/HOSPITAL COURSE: 49 y/o F with PMHx PAD with iliac artery stent, HTN, DM, diastolic HF presents from Dr. Quesada's office for thrombolysis of occluded iliac artery stent. per medical records: The patient is status post left lower extremity angiogram as per Dr. Duarte 07/31/17 with left common and external iliac artery stent placement. The patient is status post right lower extremity angiogram on 03/12/[address] Duarte with right common femoral angioplasty, right SFA angioplasty, right profunda angioplasty. The pt is S/P angiogram as per Dr Quesada 12/01/19 with placement of kissing iliac stents. Stents were extended to Aorta. The pt was seen for FU procedure appt 12/08/19 and stated she has been feeling good, no leg pain, no color or temp changes in LEs. No abdominal pain. 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 Numbness developed in the rt foot with rt foot pain, B/L feet were cold per pt. She was seen at [facility] ER with arterial US indicating diffuse monophasic flow in BLEs suggesting proximal Iliac stenosis. The pt was discharged from the ED after treatment for hyperglycemia (BS was in the 500s per pt). The pt had persistent pain in the RLE with persistent numbness in the leg. She was seen at [facility] ED 12/13. Was felt to have lumbar radiculopathy, rx for Flexeril but the pt states this did not help her pain. The pt called Vascular Surgery Wednesday 12/13 reporting her symptoms and that they were persisting. The pt states today that the pain in her Rt leg and foot is burning, cramping, sharp and wakes her up out of sleep, it has been continual, never totally resolving, but better if she sits with her rt leg dependent. Pt states her feet have been cold to touch. Urgent CTA A/P with LE runoff was arranged 12/14 at [facility] The pt was seen today to discuss results and symptoms. CTA report indicates Rt Iliac stent occlusion with distal re constitution of distal Rt EIA. The pt status is discussed with Dr Quesada. Admission is arranged with Hospitalist for RLE angiogram later today as per Dr Quesada, possible angioplasty, possible stent, possible thrombolysis. The pt denies any recent h/o surgery, head trauma,recent CVA, previous h/o bleeding, ICH, intracranial AVM/neoplasm/aneurysm. The pt is a former smoker. The pt is on ASA 81 mg/Plavix/statin. Pt states she has not missed any doses of Plavix. Currently denies pain. No CP/SOB/palpitations. Has occasional lower abd cramping, however none now. Pain only with ambulation. Also ran out of insulin 3 weeks ago, and so has not been taking it. Over course of hospitalization, pt had Aortoiliofemoral arteriogram and TPA,Extension right iliac stents with 6 x 100 Innova stent from distal external iliac artery to proximal external iliac artery and post dilation was 6 x 200 Ty Ty balloon. Pt tolerated procedure well with Dr. Quesada. Pt was started on Eliquis (risks/benefits explained to patient and she is agreeable). CM looking into her insulin cost and she is agreeable. Pt is hemodynamically stable, cleared for d/c by Vascular surg and will be d/c home. DISCHARGE MEDICATIONS: Please see below. ALLERGIES: Please see below. PHYSICAL EXAMINATION ON DISCHARGE: Vitals: (see below) General: No acute distress, laying comfortably in bed. HEENT: Moist mucous membranes. Neck: No JVD or lymphadenopathy Cardiac: RRR, No murmurs Pulm: Clear to auscultation b/l. No wheezing, rhonchi Abd: NT/ND + BS Ext: BLE are warm compared to yesterday. Cap refill <2sec. No cyanosis or skin discoloration. No TTP. No wounds. no bleeding. LABORATORY DATA: Please see below. PROGNOSIS: Fair ACTIVITY: As tolerated. DIET: Low Na/Low Cholesterol DISCHARGE PLAN/DISPOSITION: Home DISCHARGE INSTRUCTIONS: 1. F/u with PCP and Dr. Quesada in 1 week. Return to ED If symptoms worsen. DISCHARGE CONDITION: Stable. TIME SPENT ON DISCHARGE: 40 minutes. Vital Signs/I&Os Vital Signs Date Time Temp Pulse Resp B/P (MAP) Pulse Ox O2 Delivery O2 Flow Rate FiO2 12/18/19 14:00 82 16 143/81 (101) 98 Room Air 12/18/19 10:00 97.5 12/17/19 17:50 4 I&O- Last 24 Hours up to 6 AM 12/18/19 06:00 Intake Total 1230 ml Output Total 2600 ml Balance -1370 ml Laboratory Data Labs 24H Laboratory Tests 2 12/18/19 04:22: Nucleated Red Blood Cells % (auto) 0.0, Anion Gap 9, Glomerular Filtration Rate > 60.0, Estimated Mean Plasma Glucose 346H, Hemoglobin A1c 13.7, Calcium Level 7.9L CBC/BMP Laboratory Tests 12/18/19 04:22 Discharge Medications Scheduled Alprazolam (Alprazolam) 0.25 Mg Tablet, 0.25 MG PO BID, (Reported) Apixaban (Eliquis) 5 Mg Tablet, 5 MG PO BID Aspirin (Aspirin) 81 Mg Chw, 81 MG PO DAILY, (Reported) Dapagliflozin Propanediol (Farxiga) 10 Mg Tablet, 10 MG PO DAILY, (Reported) Insulin Glargine (Lantus) 100 Unit/1 Ml Vial, 56 UNITS SC QHS Insulin Human Lispro (Novolog) 100 U/Ml Inj, 1 DOSE SC AC, (Reported) PER SLIDING SCALE Lisinopril (Lisinopril) 10 Mg Tablet, 10 MG PO DAILY, (Reported) Metformin HCl (Metformin HCl ER) 500 Mg Tab, 1,000 MG PO BIDWM, (Reported) Sertraline Hcl (Sertraline HCl) 25 Mg Tablet, 25 MG PO DAILY, (Reported) Simvastatin (Zocor) 80 Mg Tablet, 80 MG PO QHS, (Reported) Scheduled PRN Cyclobenzaprine HCl (Cyclobenzaprine HCl) 5 Mg Tablet, 5 MG PO TID PRN for SPAS MS, (Reported) Hydroxyzine HCl (Hydroxyzine HCl) 25 Mg Tablet, 25 MG PO TID PRN for ANXIETY, (Reported) Allergies Coded Allergies: No Known Allergies (Unverified , 12/13/19) JESSICA MCGEE MD Dec 18, 2019 16:18
== END 2019-12-18 15:50 | disposition home or self-care (01) | DRG 181 ==
LOC: M ED 11:57 → M ED INP 14:31 → M ICU 19:50
PROVIDERS: ADMIT Internal Medicine; ATTEND Internal Medicine
PROC: 02H633Z Insertion of Infusion Device into Right Atrium, Percutaneous Approach (ICD-10-PCS; 2019-12-16)
PROC: B548ZZA Ultrasonography of Superior Vena Cava, Guidance (ICD-10-PCS; 2019-12-16)
PROC: 3E05317 Introduction of Other Thrombolytic into Peripheral Artery, Percutaneous Approach (ICD-10-PCS; 2019-12-16)
PROC: 047D34Z Dilation of Left Common Iliac Artery with Drug-eluting Intraluminal Device, Percutaneous Approach (ICD-10-PCS; 2019-12-17)
PROC: 047C34Z Dilation of Right Common Iliac Artery with Drug-eluting Intraluminal Device, Percutaneous Approach (ICD-10-PCS; 2019-12-17)
PROC: 3E05317 Introduction of Other Thrombolytic into Peripheral Artery, Percutaneous Approach (ICD-10-PCS; 2019-12-17)
PROC: B41G1ZZ Fluoroscopy of Left Lower Extremity Arteries using Low Osmolar Contrast (ICD-10-PCS; 2019-12-17)
PROC: B41F1ZZ Fluoroscopy of Right Lower Extremity Arteries using Low Osmolar Contrast (ICD-10-PCS; 2019-12-17)
PROC: 047H3DZ Dilation of Right External Iliac Artery with Intraluminal Device, Percutaneous Approach (ICD-10-PCS; principal; 2019-12-17 06:50)
DX: I70.203 Unspecified atherosclerosis of native arteries of extremities, bilateral legs (principal); I74.5 Embolism and thrombosis of iliac artery; I50.32 Chronic diastolic (congestive) heart failure; T82.856A Stenosis of peripheral vascular stent, initial encounter; E11.9 Type 2 diabetes mellitus without complications; I11.0 Hypertensive heart disease with heart failure; F41.9 Anxiety disorder, unspecified; Z79.82 Long term (current) use of aspirin; Z79.899 Other long term (current) drug therapy; Z79.4 Long term (current) use of insulin; Z87.891 Personal history of nicotine dependence; Y83.2 Surgical operation with anastomosis, bypass or graft as the cause of abnormal reaction of the patient, or of later complication, without mention of misadventure at the time of the procedure

== ENCOUNTER 2020-01-06 18:58 | Emergency (ER) | payer BC, OTHER ==
[~2020-01-06] VITALS: Ht 172.7 cm; Wt 86.4 kg
[~2020-01-06 18:58] MED LIST changes: +ELIQ5TAB PO; +NAPR-885 PO; +ZOCO80TA PO
[2020-01-06 21:33] LABS: BASO # 0.1 10^3/uL (0.0-0.2); BASO % 0.6 % (0.0-1.0); EOS # 0.7 10^3/uL (0.0-0.5); EOS % 7.5 % (0.0-3.0); HEMATOCRIT 39.9 % (36.0-47.0); HEMOGLOBIN 12.8 g/dl (12.0-15.5); LYMPH # 2.4 10^3/uL (1.5-5.0); LYMPH % 27.6 % (24.0-44.0); MEAN CORPUSCULAR HEMOGLOBIN 28.3 pg (27.0-33.0); MEAN CORPUSCULAR HGB CONC 32.1 g/dl (32.0-36.5); MEAN CORPUSCULAR VOLUME 88.1 fl (80.0-96.0); MONO # 0.6 10^3/uL (0.0-0.8); MONO % 6.4 % (0.0-5.0); NEUTROPHILS # 5.1 10^3/uL (1.5-8.5); NEUTROPHILS % 57.4 % (36.0-66.0); PLATELET COUNT, AUTOMATED 307 10^3/uL (150-450); RED BLOOD COUNT 4.53 10^6/uL (4.00-5.40); WHITE BLOOD COUNT 8.8 10^3/uL (4.0-10.0)
[2020-01-06 21:45] VITALS: BP 122/78
[2020-01-06 21:49] LABS: BLOOD UREA NITROGEN 14 MG/DL (7-18); C REACTIVE PROTEIN QUANTITATIV 1.55 MG/DL (0.00-0.30); CARBON DIOXIDE LEVEL 29 MEQ/L (21-32); CHLORIDE LEVEL 102 MEQ/L (98-107); CREATININE FOR GFR 0.73 MG/DL (0.55-1.30); GLOMERULAR FILTRATION RATE > 60.0 (>51); GLUCOSE, FASTING 381 MG/DL (70-100); SODIUM LEVEL 135 MEQ/L (136-145)
[2020-01-06 21:57] LABS: ERYTHROCYTE SEDIMENTATION RATE 28 mm/hr (0-30)
[2020-01-06] MEDS ORDERED: CLOB0.0526 TOP (22:19)
== END 2020-01-06 22:27 | disposition home or self-care (01) ==
LOC: M ED 18:58
DX: L25.9 Unspecified contact dermatitis, unspecified cause (principal); L85.0 Acquired ichthyosis; E11.9 Type 2 diabetes mellitus without complications; I11.9 Hypertensive heart disease without heart failure; F41.9 Anxiety disorder, unspecified; Z79.01 Long term (current) use of anticoagulants; Z79.4 Long term (current) use of insulin; Z79.84 Long term (current) use of oral hypoglycemic drugs; Z79.899 Other long term (current) drug therapy

== ENCOUNTER → 2020-02-05 | Outpatient (CLI) | payer BC ==
[~2020-02-05] MED LIST changes: +CLOB0.0526 TOP
--- NOTE | 2020-02-05 14:31 | REP ---
INDICATION: ATHSCL UPPER MATTAPONI ARTERIES W/ CLAUDICATION. Diabetes with peripheral vascular disease. Bilateral iliac stents. COMPARISON: Comparison ultrasound November 06, 2019.. TECHNIQUE: Bilateral lower extremity arterial Doppler sonography was performed. FINDINGS: Ankle brachial indices are measured at 0.88 on the right and 0.80 on the left. Brachial artery pressures are higher on the right than the left by 25 mmHg. This raises the question of subclavian stenosis on the left. Moderate calcific plaquing is seen throughout the lower extremity arteries. We were not able to directly visualize a iliac stents. Triphasic and biphasic waveforms are noted in the lower extremities bilaterally. Right lower extremity arterial Doppler velocity chart: Right FRONT OFFICE SPECIALIST PSV 170 cm/S Profundal 156 Proximal SFA 127 Mid SFA 99 Distal SFA 97 Popliteal 83/50 Proximal JAMAL 50 Tibial-peroneal trunk 62 Proximal RN ORTHOPAEDIC 57 Distal RN ORTHOPAEDIC 31 Distal JAMAL 15 Left lower extremity arterial Doppler velocity chart: Left FRONT OFFICE SPECIALIST PSV 144 cm/S Profundal 137 Proximal SFA 115 Mid SFA 85 Distal SFA 91 Popliteal 55 Proximal JAMAL 42 Tibial-peroneal trunk 47 Proximal RN ORTHOPAEDIC 36 Distal RN ORTHOPAEDIC 35 Distal JAMAL 21 IMPRESSION: Disparate brachial artery arm pressures, left lower than right question subclavian stenosis. Moderate calcific plaquing. No high-grade stenosis seen on either side. Unable to directly visualize iliac artery stents. <Electronically signed by Enio Tracy > 02/05/20 [id number]
== END ==
LOC: M RAD 12:19
PROVIDERS: ATTEND Physician Assistant
DX: I70.213 Atherosclerosis of native arteries of extremities with intermittent claudication, bilateral legs (principal)

== ENCOUNTER → 2020-04-19 | Outpatient (CLI) | payer BC ==
[~2020-04-19] MED LIST changes: -MECL12.589; +MECL12.590
== END ==
LOC: M LABSMTC 12:44
PROVIDERS: ATTEND Family Medicine
DX: Z20.828 Contact with and (suspected) exposure to other viral communicable diseases (principal)

== ENCOUNTER → 2020-06-13 | Outpatient (CLI) | payer BC ==
[~2020-06-13] MED LIST changes: -CLIN150C14 PO; +CLIN150C15 PO; -LISI-538 PO; -LISI-542 PO; +LISI-898 PO; +LISI10TA22; +LISI10TA22 PO; -LISI10TA4; -LISI10TA4 PO; +LISI20TA33 PO
[2020-06-13 15:14] LABS: HEMATOCRIT 42.1 % (36.0-47.0); HEMOGLOBIN 13.4 g/dl (12.0-15.5); MEAN CORPUSCULAR HEMOGLOBIN 27.5 pg (27.0-33.0); MEAN CORPUSCULAR HGB CONC 31.8 g/dl (32.0-36.5); MEAN CORPUSCULAR VOLUME 86.3 fl (80.0-96.0); PLATELET COUNT, AUTOMATED 322 10^3/uL (150-450); RED BLOOD COUNT 4.88 10^6/uL (4.00-5.40); WHITE BLOOD COUNT 8.4 10^3/uL (4.0-10.0)
[2020-06-13 15:37] LABS: ALBUMIN 3.6 GM/DL (3.2-5.2); ALT/SGPT 35 U/L (12-78); BILIRUBIN,TOTAL 0.2 MG/DL (0.2-1.0); BLOOD UREA NITROGEN 14 MG/DL (7-18); CALCIUM LEVEL 9.1 MG/DL (8.5-10.1); CARBON DIOXIDE LEVEL 30 MEQ/L (21-32); CHLORIDE LEVEL 102 MEQ/L (98-107); CHOLESTEROL LEVEL 110 MG/DL (<200); CHOLESTEROL RISK RATIO 2.156 (<5); CREATININE FOR GFR 0.64 MG/DL (0.55-1.30); GLOMERULAR FILTRATION RATE > 60.0 (>51); GLUCOSE, FASTING 254 MG/DL (70-100); HDL CHOLESTEROL 51 MG/DL (>40); LDL CHOLESTEROL 19 MG/DL (<100); NON-HDL-C 59 MG/DL; POTASSIUM SERUM 4.3 MEQ/L (3.5-5.1); SODIUM LEVEL 138 MEQ/L (136-145); TOTAL PROTEIN 6.7 GM/DL (6.4-8.2); TRIGLYCERIDES LEVEL 200 MG/DL (<150)
[2020-06-13 15:42] LABS: HEMOGLOBIN A1c 13.3 %
[2020-06-13 15:45] LABS: CREATININE, URINE 23.2 MG/DL; MALB URINE SIEMENS 12.8 MG/L; MAU/CREAT RATIO 55.1 MCG/MG (0.0-30.0)
== END ==
LOC: M LAB 14:24
PROVIDERS: ATTEND Family Medicine
DX: E11.29 Type 2 diabetes mellitus with other diabetic kidney complication (principal); E78.2 Mixed hyperlipidemia

== ENCOUNTER → 2020-06-13 | Outpatient (REF) | payer BC | LOC: M SFHCPLAZ 13:55 | PROVIDERS: ATTEND Family Medicine | DX: Z53.9 Procedure and treatment not carried out, unspecified reason (principal); E11.29 Type 2 diabetes mellitus with other diabetic kidney complication; E78.2 Mixed hyperlipidemia ==

== ENCOUNTER → 2020-06-21 | Outpatient (CLI) | payer BC ==
[~2020-06-21] MED LIST changes: +ASPI-569 PO; -ASPI81TAEC PO; +MECL-136; -MECL12.590
--- NOTE | 2020-06-21 11:13 | REP ---
INDICATION: OCCLUSION/STENOSIS DELFINA CAROTID ARTERIES COMPARISON: 11/06/2019. TECHNIQUE: Real-time ultrasound evaluation and duplex Doppler interrogation of the extracranial carotid vasculature is performed. FINDINGS: There is mild plaquing and narrowing in both carotid bulbs extending into the internal and external carotid arteries. Luminal narrowing is less than 50%. There is no evidence of hemodynamically significant stenosis of either internal carotid artery. Normal flow velocities are seen. The vertebral arteries demonstrate normal direction of flow. There appears to be a mild degree of reversed flow during diastole in the left vertebral artery suggesting early subclavian steal syndrome. RIGHT LEFT Peak systolic velocity ICA 44.3 cm/s 125.6 cm/s End diastolic velocity ICA 15.9 cm/s 36.4 cm/s Peak systolic velocity CCA 78.2 cm/s 111.7cm/s Peak systolic velocity ECA 103.6 cm/s 109.1 cm/s ICA/CCA ratio 0.57 1.12 IMPRESSION: Bilateral luminal narrowing of the internal carotid arteries less than 50%. No evidence of hemodynamically significant stenosis. There appears to be a mild degree of reversed flow during diastole in the left vertebral artery suggesting early subclavian steal syndrome. <Electronically signed by Ricky Andino > 06/21/20 [id number]
== END ==
LOC: M RAD 10:02
PROVIDERS: ATTEND Surgery Vascular Surgery
DX: I65.23 Occlusion and stenosis of bilateral carotid arteries (principal)

== ENCOUNTER → 2020-07-19 | Outpatient (CLI) | payer BC ==
[2020-07-19 17:06] LABS: BLOOD UREA NITROGEN 14 MG/DL (7-18); CREATININE FOR GFR 0.58 MG/DL (0.55-1.30); GLOMERULAR FILTRATION RATE > 60.0 (>51)
== END ==
LOC: M LAB 16:28
PROVIDERS: ATTEND Surgery Vascular Surgery
DX: I70.8 Atherosclerosis of other arteries (principal)

== ENCOUNTER → 2020-07-21 | Outpatient (CLI) | payer BC ==
[~2020-07-21] MED LIST changes: +ISOVUE-370 76% 100ML VIAL As Ordered ONE
--- NOTE | 2020-07-21 08:51 | REPVR ---
PROCEDURE INFORMATION: Exam: CT Angiography Neck With Contrast Exam date and time: 07/21/2020 8:24 AM Age: 49 years old Clinical indication: Other: Eval for subclavian stenosis TECHNIQUE: Imaging protocol: Computed tomography angiography of the neck with intravenous contrast. 3D rendering (Not supervised by radiologist): MIP and/or 3D reconstructed images were created by the technologist. Radiation optimization: All CT scans at this facility use at least one of these dose optimization techniques: automated exposure control; mA and/or kV adjustment per patient size (includes targeted exams where dose is matched to clinical indication); or iterative reconstruction. Contrast material: ISOVUE 370; Contrast volume: 75 ml; Contrast route: INTRAVENOUS (IV); COMPARISON: 1. CT ANGIO NECK 08/05/2017 9:32 AM 2. US Duplex,carotid (complete) 06/21/2020 10:15:53 AM FINDINGS: Right common carotid artery: Right common carotid artery shows mild caliber reduction related to stenosis of proximal internal carotid artery. Right internal carotid artery: The right internal carotid artery is markedly decreased in caliber approximately 12 mm distal to its origin with further reduction in caliber at level of intracranial ICA which is of string caliber. The supraclinoid ICA slightly greater caliber and this is likely from retrograde collateralization from patient's posterior communicating artery. Finding was present on prior examination. Right external carotid artery: There is minimal narrowing of origin of right external carotid artery. Right vertebral artery: No stenosis. No dissection or occlusion. Left common carotid artery: There is mild less than 50% narrowing in proximal left common carotid artery and mid to distal common carotid artery. Left internal carotid artery: There is atherosclerotic change at left carotid bifurcation and bulb. There is mild less than 50% stenosis proximal stenosis. No thrombosis, occlusion, or evidence of dissection. Left external carotid artery: No occlusion or stenosis of the origin. Left vertebral artery: Left vertebral artery is congenitally dominant. There is no evidence of spinal stenosis or neural foraminal narrowing. Direction of flow cannot be determined with CTA. Mild reversal of flow was reported during diastole on prior ultrasound suggesting early subclavian steal. Subclavian arteries: There is no significant right subclavian artery stenosis. There is left subclavian artery atherosclerotic change with focal mild origin stenosis and severe stenosis slightly greater than 70% approximately midway between the origin and origin of left vertebral artery. Aorta: There is minimal atherosclerotic change in aortic arch. No aneurysm or dissection. Bones/joints: There is no evidence of significant spinal stenosis or neural foraminal narrowing. Soft tissues: Normal. No significant soft tissue swelling. IMPRESSION: 1. Development of severe stenosis in left subclavian artery proximal to vertebral artery origin. Bilateral patent vertebral arteries as described. 2. Severe stenosis of right internal carotid artery also seen on prior examination. 3. Mild stenosis in proximal left ICA. REFERENCES: NASCET CRITERIA. The degree of internal carotid artery stenosis is based on NASCET criteria. Normal is no stenosis. Mild is less than 50% stenosis. Moderate is 50-69% stenosis. Severe is 70% to 99% stenosis. Total occlusion is no detectable patent lumen. Electronically signed by: Julisa Clark On 07/21/2020 08:51:51 AM
== END ==
LOC: M RAD 08:04
PROVIDERS: ATTEND Physician Assistant
DX: I65.23 Occlusion and stenosis of bilateral carotid arteries (principal)
CPT/HCPCS: 70498; Q9967

== ENCOUNTER → 2020-08-05 | Outpatient (CLI) | payer BC ==
[~2020-08-05] MED LIST changes: -ISOVUE-370 76% 100ML VIAL As Ordered ONE
--- NOTE | 2020-08-05 14:39 | REP ---
INDICATION: ART FREDRICK ART OF EXT WITH INTER EVITA DELFINA LEGS COMPARISON: 02/05/2020. TECHNIQUE: Real time andino scale and Duplex Doppler evaluation of the bilateral lower extremity arterial vasculature using linear high frequency transducer. FINDINGS: Andino scale and duplex doppler images demonstrate moderate diffuse plaque bilaterally. Distal abdominal aorta and bilateral common iliac arteries could not be seen due to overlying bowel gas. External iliac arteries demonstrate patent flow. ABRAHAM bilaterally is 0.7. Monophasic waveforms are seen diffusely bilaterally. There may be mild stenosis of the distal posterior tibial arteries bilaterally. Otherwise no hemodynamically significant stenosis is seen bilaterally. There is no arterial occlusion. Peak systolic velocities (cm/sec) Common femoral artery: Right 150; Left image not stored Profunda femoris: Right 137; Left 93 SFA (proximal): Right 140; Left 175 SFA (mid): Right 108; Left 148 SFA (distal): Right 119; Left 159 Popliteal artery: Right 63; Left 69 JAMAL (prox.): Right 53; Left 50 Tibioperoneal trunk: Right 76; Left 53 STUDY ABROAD COORDINATOR (prox.): Right 40; Left 56 STUDY ABROAD COORDINATOR (distal): Right 80; Left 113 JAMAL (distal): Right 76; Left 68 IMPRESSION: Atheromatous changes with suspected mild stenosis of bilateral distal posterior tibial arteries. Otherwise no significant stenosis bilaterally. No arterial occlusion. <Electronically signed by Ricky Andino > 08/05/20 2230
== END ==
LOC: M RAD 13:19
PROVIDERS: ATTEND Physician Assistant
DX: I70.213 Atherosclerosis of native arteries of extremities with intermittent claudication, bilateral legs (principal)

== ENCOUNTER 2020-10-03 17:35 | Emergency (ER) | payer BC ==
[~2020-10-03] VITALS: Ht 172.7 cm; Wt 94.5 kg
[2020-10-03] MEDS ORDERED: TRUL10IN SQ (17:43)
[2020-10-03 18:29] LABS: BASO # 0.1 10^3/uL (0.0-0.2); BASO % 0.6 % (0.0-1.0); EOS # 0.5 10^3/uL (0.0-0.5); EOS % 5.2 % (0.0-3.0); HEMATOCRIT 45.4 % (36.0-47.0); HEMOGLOBIN 14.4 g/dl (12.0-15.5); LYMPH # 2.1 10^3/uL (1.5-5.0); LYMPH % 20.4 % (24.0-44.0); MEAN CORPUSCULAR HEMOGLOBIN 27.2 pg (27.0-33.0); MEAN CORPUSCULAR HGB CONC 31.7 g/dl (32.0-36.5); MEAN CORPUSCULAR VOLUME 85.8 fl (80.0-96.0); MONO # 0.8 10^3/uL (0.0-0.8); MONO % 8.1 % (2.0-8.0); NEUTROPHILS # 6.6 10^3/uL (1.5-8.5); NEUTROPHILS % 65.5 % (36.0-66.0); PLATELET COUNT, AUTOMATED 312 10^3/uL (150-450); RED BLOOD COUNT 5.29 10^6/uL (4.00-5.40); WHITE BLOOD COUNT 10.1 10^3/uL (4.0-10.0)
[2020-10-03 18:58] LABS: ALBUMIN 3.6 GM/DL (3.2-5.2); ALT/SGPT 37 U/L (12-78); BILIRUBIN,DIRECT < 0.1 MG/DL (0.0-0.2); BILIRUBIN,TOTAL 0.3 MG/DL (0.2-1.0); BLOOD UREA NITROGEN 14 MG/DL (7-18); CALCIUM LEVEL 8.9 MG/DL (8.5-10.1); CARBON DIOXIDE LEVEL 29 MEQ/L (21-32); CHLORIDE LEVEL 102 MEQ/L (98-107); CREATININE FOR GFR 0.78 MG/DL (0.55-1.30); GLOMERULAR FILTRATION RATE > 60.0 (>51); GLUCOSE, FASTING 325 MG/DL (70-100); LIPASE 136 U/L (73-393); POTASSIUM SERUM 4.7 MEQ/L (3.5-5.1); SODIUM LEVEL 136 MEQ/L (136-145); TOTAL PROTEIN 7.2 GM/DL (6.4-8.2)
[2020-10-03] MEDS ORDERED: ONDANSETRON 4MG/2ML VIAL IV ONE (20:05)
[2020-10-03] MEDS ORDERED: NS 1,000 ML IV ONE (20:05)
[2020-10-03] MEDS ORDERED: ISOVUE-370 76% 100ML VIAL As Ordered ONE (20:13)
[2020-10-03] MEDS ORDERED: MORPHINE 4 MG/ML 1ML VIAL/SYRINGE (J2270) IV ONE (21:10)
--- NOTE | 2020-10-03 22:32 | REPVR ---
PROCEDURE INFORMATION: Exam: CT Abdomen and Pelvis with Contrast Exam date and time: 10/03/20 (8:41pm) Age: 49 years old Clinical indication: Bilateral flank pain and hematuria TECHNIQUE: Imaging protocol: Computed tomography of the abdomen and pelvis with contrast. Radiation optimization: All CT scans at this facility use at least one of these dose optimization techniques: automated exposure control; mA and/or kV adjustment per patient size (includes targeted exams where dose is matched to clinical indication); or iterative reconstruction. Contrast material: Isovue 370 Contrast volume: 100 ml Contrast route: IV COMPARISON: CT ABDOMEN PELVIS of 07/10/19 CT ABDOMEN PELVIS of 04/03/18 FINDINGS: Liver: Normal. No solid mass. Gallbladder and bile ducts: Normal. No calcified stones. No ductal dilatation. Pancreas: Normal. No ductal dilatation. Spleen: Normal. No splenomegaly. Adrenal glands: Bilateral adrenal nodules (stable). Kidneys and ureters: No hydronephrosis. Small renal cysts (unchanged). Stomach and bowel: Unremarkable. No bowel obstruction. No mucosal thickening. Appendix: A normal appendix is visualized. Intraperitoneal space: Unremarkable. No free air. No significant fluid collection. Vasculature: Aorto-biiliac stents again seen. No abdominal aortic aneurysm. Lymph nodes: Unremarkable. No enlarged lymph nodes. Urinary bladder: Unremarkable as visualized. Reproductive: Unremarkable as visualized. Bones/joints: Unremarkable. No acute fracture. Soft tissues: Unremarkable. IMPRESSION: No acute findings. No hydronephrosis is appreciated. No radiodense urinary tract stones are visualized. Electronically signed by: Xiao Prado On 10/03/2020 22:32:00 PM
[2020-10-03] MEDS ORDERED: CIPROFLOXACIN 500MG TABLET PO ONE (23:25)
[2020-10-03] MEDS ORDERED: NORCO 5/325MG TABLET (BULK FOR ED) PO ONE (23:25)
[2020-10-03] MEDS ORDERED: BACT800T5 PO (23:26)
[2020-10-03] MEDS ORDERED: BACTRIM 160MG/800MG DS TAB PO ONE (23:30)
[2020-10-03 23:35] VITALS: BP 126/71
== END 2020-10-03 23:54 | disposition home or self-care (01) ==
LOC: M ED 17:35
DX: R10.9 Unspecified abdominal pain (principal); N39.0 Urinary tract infection, site not specified; R31.9 Hematuria, unspecified; E11.65 Type 2 diabetes mellitus with hyperglycemia; I10 Essential (primary) hypertension; E78.5 Hyperlipidemia, unspecified; Z86.73 Personal history of transient ischemic attack (TIA), and cerebral infarction without residual deficits; Z79.01 Long term (current) use of anticoagulants; Z79.899 Other long term (current) drug therapy; Z79.4 Long term (current) use of insulin; Z79.82 Long term (current) use of aspirin
CPT/HCPCS: 74177; 80048; 80076; 81001; 83690; 85025; 87086; 96361; 96374; 96375; 99284; J2270; J2405; Q9967

== ENCOUNTER → 2021-01-06 | Outpatient (REF) | payer BC ==
[~2021-01-06] MED LIST changes: -CLIN150C15 PO; +CLIN150C17 PO; +TRUL10IN SQ
== END ==
LOC: M SFHCPLAZ 08:44
PROVIDERS: ATTEND Family Medicine
DX: E11.59 Type 2 diabetes mellitus with other circulatory complications (principal)

== ENCOUNTER → 2021-09-08 | Outpatient (CLI) | payer BC ==
[~2021-09-08] MED LIST changes: -LISI-898 PO; +LISI5TAB11 PO
== END ==
LOC: M RAD 13:35
PROVIDERS: ATTEND Physician Assistant
DX: I70.213 Atherosclerosis of native arteries of extremities with intermittent claudication, bilateral legs (principal); I65.23 Occlusion and stenosis of bilateral carotid arteries

== ENCOUNTER 2021-09-20 07:25 | Emergency (ER) | payer BC ==
[~2021-09-20] VITALS: Ht 172.7 cm; Wt 90.7 kg
[2021-09-20 09:29] LABS: BASO # 0.1 10^3/uL (0.0-0.2); BASO % 1.1 % (0.0-1.0); EOS # 0.5 10^3/uL (0.0-0.5); EOS % 8.6 % (0.0-3.0); HEMATOCRIT 45.2 % (36.0-47.0); HEMOGLOBIN 14.7 g/dl (12.0-15.5); LYMPH # 1.6 10^3/uL (1.5-5.0); LYMPH % 30.7 % (24.0-44.0); MEAN CORPUSCULAR HEMOGLOBIN 27.9 pg (27.0-33.0); MEAN CORPUSCULAR HGB CONC 32.5 g/dl (32.0-36.5); MEAN CORPUSCULAR VOLUME 85.8 fl (80.0-96.0); MONO # 0.4 10^3/uL (0.0-0.8); MONO % 6.9 % (2.0-8.0); NEUTROPHILS # 2.8 10^3/uL (1.5-8.5); NEUTROPHILS % 52.3 % (36.0-66.0); PLATELET COUNT, AUTOMATED 308 10^3/uL (150-450); RED BLOOD COUNT 5.27 10^6/uL (4.00-5.40); WHITE BLOOD COUNT 5.4 10^3/uL (4.0-10.0)
[2021-09-20 09:52] LABS: ALBUMIN 3.9 GM/DL (3.2-5.2); ALT/SGPT 37 U/L (12-78); BILIRUBIN,TOTAL 0.5 MG/DL (0.2-1.0); BLOOD UREA NITROGEN 12 MG/DL (7-18); CALCIUM LEVEL 9.4 MG/DL (8.5-10.1); CARBON DIOXIDE LEVEL 28 MEQ/L (21-32); CHLORIDE LEVEL 104 MEQ/L (98-107); CREATININE FOR GFR 0.69 MG/DL (0.55-1.30); GLOMERULAR FILTRATION RATE > 60.0 (>51); GLUCOSE, FASTING 332 MG/DL (70-100); POTASSIUM SERUM 4.6 MEQ/L (3.5-5.1); SODIUM LEVEL 137 MEQ/L (136-145); TOTAL PROTEIN 7.3 GM/DL (6.4-8.2)
[2021-09-20 10:00] LABS: ERYTHROCYTE SEDIMENTATION RATE 12 mm/hr (0-30)
[2021-09-20] MEDS ORDERED: DOXY-350 PO (10:13)
[2021-09-20] MEDS ORDERED: BACITRACIN OINTMENT 30GM TUBE TOP ONE (10:20)
[2021-09-20 10:31] VITALS: BP 129/79
== END 2021-09-20 10:37 | disposition home or self-care (01) ==
LOC: M ED 07:25
DX: L03.116 Cellulitis of left lower limb (principal); E11.9 Type 2 diabetes mellitus without complications; Z79.4 Long term (current) use of insulin; I10 Essential (primary) hypertension; Z87.442 Personal history of urinary calculi; Z86.73 Personal history of transient ischemic attack (TIA), and cerebral infarction without residual deficits; Z87.891 Personal history of nicotine dependence; Z79.811 Long term (current) use of aromatase inhibitors; Z79.899 Other long term (current) drug therapy

== ENCOUNTER → 2021-09-22 | Outpatient (CLI) | payer BC ==
[~2021-09-22] MED LIST changes: +DOXY-350 PO
== END ==
LOC: M CARPUL 13:04
PROVIDERS: ATTEND Physician Assistant
DX: R01.1 Cardiac murmur, unspecified (principal)

== ENCOUNTER 2021-09-30 19:18 | Inpatient (IN) | payer BC ==
[~2021-09-30] VITALS: Ht 172.7 cm; Wt 95.5 kg
[2021-09-30] MEDS ORDERED: CEFTAROLINE FOSAMIL 600 MG in D5W MINI-BAG PLUS 50 ML IV ONE (20:50)
[2021-09-30] MEDS: INSULIN LISPRO (NovoLOG) PER UNIT SC SCH (21:00)
[2021-09-30 21:24] LABS: BASO # 0.1 10^3/uL (0.0-0.2); BASO % 0.7 % (0.0-1.0); EOS # 0.9 10^3/uL (0.0-0.5); EOS % 11.1 % (0.0-3.0); HEMATOCRIT 45.8 % (36.0-47.0); HEMOGLOBIN 14.9 g/dl (12.0-15.5); LYMPH # 2.7 10^3/uL (1.5-5.0); LYMPH % 33.9 % (24.0-44.0); MEAN CORPUSCULAR HEMOGLOBIN 27.7 pg (27.0-33.0); MEAN CORPUSCULAR HGB CONC 32.5 g/dl (32.0-36.5); MEAN CORPUSCULAR VOLUME 85.1 fl (80.0-96.0); MONO # 0.5 10^3/uL (0.0-0.8); MONO % 6.2 % (2.0-8.0); NEUTROPHILS # 3.9 10^3/uL (1.5-8.5); NEUTROPHILS % 47.9 % (36.0-66.0); PLATELET COUNT, AUTOMATED 348 10^3/uL (150-450); RED BLOOD COUNT 5.38 10^6/uL (4.00-5.40); WHITE BLOOD COUNT 8.1 10^3/uL (4.0-10.0)
[2021-09-30 21:48] LABS: BLOOD UREA NITROGEN 13 MG/DL (7-18); CALCIUM LEVEL 9.3 MG/DL (8.5-10.1); CARBON DIOXIDE LEVEL 29 MEQ/L (21-32); CHLORIDE LEVEL 103 MEQ/L (98-107); CREATININE FOR GFR 0.72 MG/DL (0.55-1.30); GLOMERULAR FILTRATION RATE > 60.0 (>51); GLUCOSE, FASTING 248 MG/DL (70-100); POTASSIUM SERUM 3.9 MEQ/L (3.5-5.1); SODIUM LEVEL 136 MEQ/L (136-145)
[2021-09-30 21:55] LABS: RSV AMPLIFICATION NEGATIVE (NEGATIVE)
[2021-09-30] MEDS ORDERED: ELIQ5TAB PO (22:33)
[2021-09-30] MEDS ORDERED: HOME MED LIST COMPLETE! XX SCH (22:35)
[2021-09-30] MEDS ORDERED: GLUCAGON INJ 1MG VIAL SC PRN (23:25)
[2021-09-30] MEDS ORDERED: GLUCOSE 4GM CHEW TABLET PO PRN (23:25)
[2021-09-30] MEDS ORDERED: DEXTROSE 50% 50 ML SYRINGE IV PRN (23:25)
[2021-09-30] MEDS ORDERED: KETOROLAC 30 MG/ML 1ML VIAL IV ONE (23:25)
[2021-09-30] MEDS ORDERED: ACETAMINOPHEN TAB 650MG DOSE (2X325MG) PO PRN (23:25)
[2021-10-01] MEDS: LEVEMIR (INSULIN DETEMIR) 1 UNITS/0.01ML SC SCH ×2 (00:09→20:21)
[2021-10-01] MEDS: APIXABAN 5 MG TAB (ELIQUIS) PO SCH ×3 (00:10→20:19)
[2021-10-01 02:24] VITALS: BP 108/66
[2021-10-01 06:24] LABS: BLOOD UREA NITROGEN 13 MG/DL (7-18); CALCIUM LEVEL 8.9 MG/DL (8.5-10.1); CARBON DIOXIDE LEVEL 27 MEQ/L (21-32); CHLORIDE LEVEL 108 MEQ/L (98-107); CREATININE FOR GFR 0.64 MG/DL (0.55-1.30); GLOMERULAR FILTRATION RATE > 60.0 (>51); GLUCOSE, FASTING 203 MG/DL (70-100); POTASSIUM SERUM 4.1 MEQ/L (3.5-5.1); SODIUM LEVEL 140 MEQ/L (136-145)
[2021-10-01 07:34] VITALS: BP 102/63
[2021-10-01] MEDS ORDERED: metFORMIN XR 500MG TAB *GLUCOPHAGE XR PO SCH (08:00)
[2021-10-01] MEDS: ASPIRIN 81 MG CHEW TABLET PO SCH (08:04)
[2021-10-01] MEDS: SERTRALINE HCL 25 MG TABLET PO SCH (08:04)
[2021-10-01] MEDS: INSULIN LISPRO (NovoLOG) PER UNIT SC SCH ×4 (08:05→20:20)
[2021-10-01] MEDS ORDERED: CEFTAROLINE FOSAMIL 600 MG in D5W MINI-BAG PLUS 50 ML IV SCH (09:00)
[2021-10-01 12:05] VITALS: BP 116/72
[2021-10-01] MEDS ORDERED: cefTRIAXone SOD 1 GM in D5W MINI-BAG PLUS 50 ML IV SCH (13:00)
[2021-10-01 15:55] VITALS: BP 105/68
[2021-10-01 20:00] VITALS: BP 126/63
[2021-10-01] MEDS ORDERED: cefTRIAXone SOD 2 GM in D5W MINI-BAG PLUS 50 ML IV SCH (21:00)
[2021-10-01] MEDS ORDERED: SIMVASTATIN 40 MG TAB PO SCH (21:00)
[2021-10-02 05:18] LABS: HEMATOCRIT 42.5 % (36.0-47.0); HEMOGLOBIN 13.7 g/dl (12.0-15.5); MEAN CORPUSCULAR HEMOGLOBIN 27.6 pg (27.0-33.0); MEAN CORPUSCULAR HGB CONC 32.2 g/dl (32.0-36.5); MEAN CORPUSCULAR VOLUME 85.7 fl (80.0-96.0); PLATELET COUNT, AUTOMATED 257 10^3/uL (150-450); RED BLOOD COUNT 4.96 10^6/uL (4.00-5.40)
[2021-10-02 05:44] LABS: BLOOD UREA NITROGEN 15 MG/DL (7-18); CALCIUM LEVEL 8.5 MG/DL (8.5-10.1); CARBON DIOXIDE LEVEL 26 MEQ/L (21-32); CHLORIDE LEVEL 108 MEQ/L (98-107); CREATININE FOR GFR 0.58 MG/DL (0.55-1.30); GLOMERULAR FILTRATION RATE > 60.0 (>51); GLUCOSE, FASTING 290 MG/DL (70-100); POTASSIUM SERUM 4.1 MEQ/L (3.5-5.1); SODIUM LEVEL 140 MEQ/L (136-145)
[2021-10-02 06:00] VITALS: BP 138/65
[2021-10-02 07:36] VITALS: BP 117/59
[2021-10-02] MEDS: INSULIN LISPRO (NovoLOG) PER UNIT SC SCH ×2 (08:33→12:17)
[2021-10-02 08:34] VITALS: BP 117/59
[2021-10-02] MEDS: SERTRALINE HCL 25 MG TABLET PO SCH (08:34)
[2021-10-02] MEDS: ASPIRIN 81 MG CHEW TABLET PO SCH (08:34)
[2021-10-02] MEDS: APIXABAN 5 MG TAB (ELIQUIS) PO SCH (08:34)
[2021-10-02] MEDS ORDERED: CEPH250T PO (12:36)
== END 2021-10-02 15:23 | disposition home or self-care (01) | DRG 383 ==
LOC: M ED 19:18 → M ED INP 23:22 → M PCU 10-01 02:20
PROVIDERS: ADMIT Internal Medicine; ATTEND Internal Medicine
DX: L03.116 Cellulitis of left lower limb (principal); E11.40 Type 2 diabetes mellitus with diabetic neuropathy, unspecified; I73.9 Peripheral vascular disease, unspecified; I10 Essential (primary) hypertension; E78.5 Hyperlipidemia, unspecified; F41.9 Anxiety disorder, unspecified; Z86.718 Personal history of other venous thrombosis and embolism; Z79.01 Long term (current) use of anticoagulants; Z79.82 Long term (current) use of aspirin; Z79.899 Other long term (current) drug therapy; Z79.4 Long term (current) use of insulin; E66.9 Obesity, unspecified

== ENCOUNTER 2021-10-06 11:34 | Inpatient (IN) | payer BC ==
[~2021-10-06] VITALS: Ht 172.7 cm; Wt 91.5 kg
[~2021-10-06 11:34] MED LIST changes: +CEPH250T PO
[2021-10-06] MEDS ORDERED: diphenhydrAMINE 50MG/ML VIAL (J1200) IV STA (13:30)
[2021-10-06] MEDS ORDERED: INSULANT SC (14:12)
[2021-10-06] MEDS ORDERED: CEPH250T PO (14:12)
[2021-10-06] MEDS ORDERED: HOME MED LIST COMPLETE! XX SCH (14:15)
[2021-10-06 15:07] LABS: BASO # 0.1 10^3/uL (0.0-0.2); BASO % 0.9 % (0.0-1.0); EOS # 1.3 10^3/uL (0.0-0.5); EOS % 15.7 % (0.0-3.0); HEMATOCRIT 45.3 % (36.0-47.0); HEMOGLOBIN 14.8 g/dl (12.0-15.5); LYMPH # 2.2 10^3/uL (1.5-5.0); LYMPH % 27.7 % (24.0-44.0); MEAN CORPUSCULAR HEMOGLOBIN 27.9 pg (27.0-33.0); MEAN CORPUSCULAR HGB CONC 32.7 g/dl (32.0-36.5); MEAN CORPUSCULAR VOLUME 85.5 fl (80.0-96.0); MONO # 0.5 10^3/uL (0.0-0.8); MONO % 6.6 % (2.0-8.0); NEUTROPHILS # 3.9 10^3/uL (1.5-8.5); NEUTROPHILS % 48.9 % (36.0-66.0); PLATELET COUNT, AUTOMATED 335 10^3/uL (150-450)
[2021-10-06 15:27] LABS: INR 0.88; PROTHROMBIN TIME 12.3 SECONDS (12.7-14.5)
[2021-10-06 15:28] LABS: ALBUMIN 3.9 GM/DL (3.2-5.2); ALT/SGPT 35 U/L (12-78); BILIRUBIN,DIRECT 0.1 MG/DL (0.0-0.2); BILIRUBIN,TOTAL 0.4 MG/DL (0.2-1.0); BLOOD UREA NITROGEN 15 MG/DL (7-18); C REACTIVE PROTEIN QUANTITATIV 0.62 MG/DL (0.00-0.30); CARBON DIOXIDE LEVEL 27 MEQ/L (21-32); CHLORIDE LEVEL 101 MEQ/L (98-107); CREATININE FOR GFR 0.73 MG/DL (0.55-1.30); GLOMERULAR FILTRATION RATE > 60.0 (>51); GLUCOSE, FASTING 279 MG/DL (70-100); PARTIAL THROMBOPLASTIN TIME 33.3 SECONDS (25.9-37.0); POTASSIUM SERUM 4.1 MEQ/L (3.5-5.1); SODIUM LEVEL 136 MEQ/L (136-145); TOTAL PROTEIN 7.4 GM/DL (6.4-8.2)
[2021-10-06 15:33] LABS: ERYTHROCYTE SEDIMENTATION RATE 13 mm/hr (0-30)
[2021-10-06 15:45] LABS: RSV AMPLIFICATION NEGATIVE (NEGATIVE)
[2021-10-06] MEDS ORDERED: diphenhydrAMINE CREAM 30GM TOP PRN (16:45)
[2021-10-06] MEDS ORDERED: DEXTROSE 50% 50 ML SYRINGE IV PRN (16:55)
[2021-10-06] MEDS ORDERED: GLUCAGON INJ 1MG VIAL SC PRN (16:55)
[2021-10-06] MEDS ORDERED: GLUCOSE 4GM CHEW TABLET PO PRN (16:55)
[2021-10-06] MEDS: PIPERACILLIN/TAZOBACTAM SOD 3.375 GM in D5W MINI-BAG PLUS 50 ML IV SCH ×2 (18:00→23:30)
[2021-10-06] MEDS ORDERED: CLOBETASOL PROP 0.05% OINT 30 GM TOP SCH (18:00)
[2021-10-06] MEDS: INSULIN LISPRO (NovoLOG) PER UNIT SC SCH ×2 (18:11→21:45)
[2021-10-06] MEDS ORDERED: VANCOMYCIN HCL 1,000 MG, VIAL MATE ADAPTER 1 EACH in NS 250 ML IV ONE ×2 (19:00→20:00)
[2021-10-06] MEDS ORDERED: CETIRIZINE (ZyrTEC) 10 MG TAB PO SCH (21:00)
[2021-10-06 21:24] VITALS: BP 103/66
[2021-10-06] MEDS: ALPRAZolam 0.25 MG TAB PO SCH (21:44)
[2021-10-06] MEDS: APIXABAN 5 MG TAB (ELIQUIS) PO SCH (21:45)
[2021-10-06] MEDS: SIMVASTATIN 40 MG TAB PO SCH (21:45)
[2021-10-06] MEDS: LEVEMIR (INSULIN DETEMIR) 1 UNITS/0.01ML SC SCH (21:46)
[2021-10-07] MEDS: PIPERACILLIN/TAZOBACTAM SOD 3.375 GM in D5W MINI-BAG PLUS 50 ML IV SCH ×3 (05:11→17:57)
[2021-10-07 05:40] VITALS: BP 102/66
[2021-10-07 06:24] LABS: BASO # 0.1 10^3/uL (0.0-0.2); BASO % 0.9 % (0.0-1.0); EOS # 1.1 10^3/uL (0.0-0.5); EOS % 16.7 % (0.0-3.0); HEMOGLOBIN 13.7 g/dl (12.0-15.5); LYMPH # 1.7 10^3/uL (1.5-5.0); LYMPH % 25.3 % (24.0-44.0); MEAN CORPUSCULAR HEMOGLOBIN 28.3 pg (27.0-33.0); MEAN CORPUSCULAR HGB CONC 32.6 g/dl (32.0-36.5); MEAN CORPUSCULAR VOLUME 86.8 fl (80.0-96.0); MONO # 0.5 10^3/uL (0.0-0.8); MONO % 7.3 % (2.0-8.0); NEUTROPHILS # 3.3 10^3/uL (1.5-8.5); NEUTROPHILS % 49.5 % (36.0-66.0); PLATELET COUNT, AUTOMATED 300 10^3/uL (150-450); RED BLOOD COUNT 4.84 10^6/uL (4.00-5.40); WHITE BLOOD COUNT 6.7 10^3/uL (4.0-10.0)
[2021-10-07 06:55] LABS: BLOOD UREA NITROGEN 12 MG/DL (7-18); CALCIUM LEVEL 8.2 MG/DL (8.5-10.1); CARBON DIOXIDE LEVEL 29 MEQ/L (21-32); CHLORIDE LEVEL 103 MEQ/L (98-107); GLOMERULAR FILTRATION RATE > 60.0 (>51); GLUCOSE, FASTING 271 MG/DL (70-100); POTASSIUM SERUM 4.6 MEQ/L (3.5-5.1); SODIUM LEVEL 137 MEQ/L (136-145)
[2021-10-07] MEDS ORDERED: VANCOMYCIN HCL 1,000 MG, VIAL MATE ADAPTER 1 EACH in NS 250 ML IV SCH (07:00)
[2021-10-07] MEDS: ALPRAZolam 0.25 MG TAB PO SCH ×2 (08:53→20:39)
[2021-10-07] MEDS: INSULIN LISPRO (NovoLOG) PER UNIT SC SCH ×4 (08:53→20:40)
[2021-10-07] MEDS: ASPIRIN 81 MG CHEW TABLET PO SCH (08:53)
[2021-10-07] MEDS: APIXABAN 5 MG TAB (ELIQUIS) PO SCH ×2 (08:53→20:38)
[2021-10-07] MEDS: SERTRALINE HCL 25 MG TABLET PO SCH (08:54)
[2021-10-07] MEDS: CLOBETASOL PROPIONATE EMOLLIENT 0.05% CR 60 GM TOP SCH ×2 (13:27→20:41)
[2021-10-07] MEDS: VANCOMYCIN HCL 750 MG, VIAL MATE ADAPTER 1 EACH in NS 250 ML IV SCH (19:01)
[2021-10-07] MEDS: SIMVASTATIN 40 MG TAB PO SCH (20:39)
[2021-10-07] MEDS: LEVEMIR (INSULIN DETEMIR) 1 UNITS/0.01ML SC SCH (20:39)
[2021-10-07] MEDS: VANCOMYCIN HCL 500 MG in D5W MINI-BAG PLUS 100 ML IV SCH (20:40)
[2021-10-07 21:00] VITALS: BP 116/74
[2021-10-08] MEDS: PIPERACILLIN/TAZOBACTAM SOD 3.375 GM in D5W MINI-BAG PLUS 50 ML IV SCH ×4 (00:55→18:16)
[2021-10-08 06:00] VITALS: BP 97/66
[2021-10-08 06:27] LABS: BASO # 0.1 10^3/uL (0.0-0.2); BASO % 1.1 % (0.0-1.0); EOS # 1.1 10^3/uL (0.0-0.5); EOS % 18.7 % (0.0-3.0); HEMATOCRIT 40.3 % (36.0-47.0); HEMOGLOBIN 12.9 g/dl (12.0-15.5); LYMPH # 1.7 10^3/uL (1.5-5.0); LYMPH % 30.7 % (24.0-44.0); MEAN CORPUSCULAR HEMOGLOBIN 27.7 pg (27.0-33.0); MEAN CORPUSCULAR VOLUME 86.5 fl (80.0-96.0); MONO # 0.4 10^3/uL (0.0-0.8); MONO % 7.5 % (2.0-8.0); NEUTROPHILS # 2.4 10^3/uL (1.5-8.5); NEUTROPHILS % 41.6 % (36.0-66.0); PLATELET COUNT, AUTOMATED 262 10^3/uL (150-450); RED BLOOD COUNT 4.66 10^6/uL (4.00-5.40); WHITE BLOOD COUNT 5.6 10^3/uL (4.0-10.0)
[2021-10-08 06:52] LABS: BLOOD UREA NITROGEN 12 MG/DL (7-18); CARBON DIOXIDE LEVEL 27 MEQ/L (21-32); CHLORIDE LEVEL 107 MEQ/L (98-107); CREATININE FOR GFR 0.64 MG/DL (0.55-1.30); GLOMERULAR FILTRATION RATE > 60.0 (>51); GLUCOSE, FASTING 266 MG/DL (70-100); POTASSIUM SERUM 4.5 MEQ/L (3.5-5.1); SODIUM LEVEL 142 MEQ/L (136-145)
[2021-10-08] MEDS: VANCOMYCIN HCL 750 MG, VIAL MATE ADAPTER 1 EACH in NS 250 ML IV SCH ×2 (07:15→19:23)
[2021-10-08] MEDS: INSULIN LISPRO (NovoLOG) PER UNIT SC SCH ×4 (08:20→20:57)
[2021-10-08] MEDS: VANCOMYCIN HCL 500 MG in D5W MINI-BAG PLUS 100 ML IV SCH (08:21)
[2021-10-08] MEDS: ASPIRIN 81 MG CHEW TABLET PO SCH (08:22)
[2021-10-08] MEDS: APIXABAN 5 MG TAB (ELIQUIS) PO SCH ×2 (08:22→20:56)
[2021-10-08] MEDS: ALPRAZolam 0.25 MG TAB PO SCH ×2 (08:23→20:56)
[2021-10-08] MEDS: SERTRALINE HCL 25 MG TABLET PO SCH (08:23)
[2021-10-08] MEDS: CLOBETASOL PROPIONATE EMOLLIENT 0.05% CR 60 GM TOP SCH ×2 (08:24→20:58)
[2021-10-08] MEDS ORDERED: MIRALAX *UNIT DOSE* 17GM PACKET PO PRN (08:40)
[2021-10-08] MEDS: VANICREAM MOISTURIZING SKIN CREAM 113GM TUBE TOP SCH ×2 (10:02→20:58)
[2021-10-08] MEDS: DOCUSATE SODIUM 100MG CAPSULE PO SCH ×2 (10:02→20:56)
[2021-10-08 20:00] VITALS: BP 138/74
[2021-10-08] MEDS: SIMVASTATIN 40 MG TAB PO SCH (20:56)
[2021-10-08] MEDS: LEVEMIR (INSULIN DETEMIR) 1 UNITS/0.01ML SC SCH (20:56)
[2021-10-09] MEDS: PIPERACILLIN/TAZOBACTAM SOD 3.375 GM in D5W MINI-BAG PLUS 50 ML IV SCH ×5 (00:25→23:56)
[2021-10-09] MEDS: VANCOMYCIN HCL 750 MG, VIAL MATE ADAPTER 1 EACH in NS 250 ML IV SCH ×2 (03:20→11:00)
[2021-10-09 05:25] VITALS: BP 99/66
[2021-10-09 06:48] LABS: BASO # 0.1 10^3/uL (0.0-0.2); BASO % 1.1 % (0.0-1.0); EOS % 16.6 % (0.0-3.0); HEMATOCRIT 40.7 % (36.0-47.0); HEMOGLOBIN 12.7 g/dl (12.0-15.5); LYMPH # 1.8 10^3/uL (1.5-5.0); LYMPH % 29.6 % (24.0-44.0); MEAN CORPUSCULAR HEMOGLOBIN 27.8 pg (27.0-33.0); MEAN CORPUSCULAR HGB CONC 31.2 g/dl (32.0-36.5); MEAN CORPUSCULAR VOLUME 89.1 fl (80.0-96.0); MONO # 0.4 10^3/uL (0.0-0.8); MONO % 6.6 % (2.0-8.0); NEUTROPHILS # 2.8 10^3/uL (1.5-8.5); NEUTROPHILS % 45.6 % (36.0-66.0); PLATELET COUNT, AUTOMATED 279 10^3/uL (150-450); RED BLOOD COUNT 4.57 10^6/uL (4.00-5.40); WHITE BLOOD COUNT 6.1 10^3/uL (4.0-10.0)
[2021-10-09 07:04] LABS: BLOOD UREA NITROGEN 13 MG/DL (7-18); CREATININE FOR GFR 0.66 MG/DL (0.55-1.30); GLUCOSE, FASTING 336 MG/DL (70-100)
[2021-10-09 07:05] LABS: CALCIUM LEVEL 8.7 MG/DL (8.5-10.1); CARBON DIOXIDE LEVEL 31 MEQ/L (21-32); CHLORIDE LEVEL 101 MEQ/L (98-107); GLOMERULAR FILTRATION RATE > 60.0 (>51); POTASSIUM SERUM 4.7 MEQ/L (3.5-5.1); SODIUM LEVEL 137 MEQ/L (136-145)
[2021-10-09] MEDS: INSULIN LISPRO (NovoLOG) PER UNIT SC SCH ×4 (08:30→20:54)
[2021-10-09] MEDS: APIXABAN 5 MG TAB (ELIQUIS) PO SCH ×2 (08:31→20:54)
[2021-10-09] MEDS: SERTRALINE HCL 25 MG TABLET PO SCH (08:31)
[2021-10-09] MEDS: ALPRAZolam 0.25 MG TAB PO SCH ×2 (08:31→20:54)
[2021-10-09] MEDS: ASPIRIN 81 MG CHEW TABLET PO SCH (08:34)
[2021-10-09] MEDS: DOCUSATE SODIUM 100MG CAPSULE PO SCH ×2 (08:34→20:53)
[2021-10-09] MEDS: CLOBETASOL PROPIONATE EMOLLIENT 0.05% CR 60 GM TOP SCH ×2 (08:35→20:56)
[2021-10-09] MEDS: VANICREAM MOISTURIZING SKIN CREAM 113GM TUBE TOP SCH ×2 (08:36→20:55)
[2021-10-09 14:00] VITALS: BP 140/76
[2021-10-09] MEDS ORDERED: VANCOMYCIN HCL 750 MG, VIAL MATE ADAPTER 1 EACH in NS 250 ML IV ONE (20:00)
[2021-10-09] MEDS: SIMVASTATIN 40 MG TAB PO SCH (20:54)
[2021-10-09] MEDS: LEVEMIR (INSULIN DETEMIR) 1 UNITS/0.01ML SC SCH (20:55)
[2021-10-09] MEDS ORDERED: PANTOPRAZOLE 40MG TAB (PROTONIX) PO SCH (21:00)
[2021-10-09] MEDS ORDERED: VANCOMYCIN HCL 500 MG in D5W MINI-BAG PLUS 100 ML IV ONE (21:00)
[2021-10-09 21:55] VITALS: BP 161/93
[2021-10-10] MEDS: VANCOMYCIN HCL 1,000 MG, VIAL MATE ADAPTER 1 EACH in NS 250 ML IV SCH ×3 (03:04→18:08)
[2021-10-10] MEDS: PIPERACILLIN/TAZOBACTAM SOD 3.375 GM in D5W MINI-BAG PLUS 50 ML IV SCH ×3 (05:42→21:00)
[2021-10-10 05:44] LABS: BASO # 0.1 10^3/uL (0.0-0.2); BASO % 0.9 % (0.0-1.0); EOS # 1.1 10^3/uL (0.0-0.5); EOS % 15.4 % (0.0-3.0); HEMATOCRIT 40.6 % (36.0-47.0); LYMPH # 2.4 10^3/uL (1.5-5.0); LYMPH % 32.8 % (24.0-44.0); MEAN CORPUSCULAR HEMOGLOBIN 27.7 pg (27.0-33.0); MEAN CORPUSCULAR VOLUME 86.6 fl (80.0-96.0); MONO # 0.5 10^3/uL (0.0-0.8); MONO % 6.2 % (2.0-8.0); NEUTROPHILS # 3.3 10^3/uL (1.5-8.5); NEUTROPHILS % 44.4 % (36.0-66.0); PLATELET COUNT, AUTOMATED 273 10^3/uL (150-450); RED BLOOD COUNT 4.69 10^6/uL (4.00-5.40); WHITE BLOOD COUNT 7.4 10^3/uL (4.0-10.0)
[2021-10-10 06:06] LABS: BLOOD UREA NITROGEN 13 MG/DL (7-18); CALCIUM LEVEL 8.9 MG/DL (8.5-10.1); CARBON DIOXIDE LEVEL 26 MEQ/L (21-32); CHLORIDE LEVEL 105 MEQ/L (98-107); CREATININE FOR GFR 0.68 MG/DL (0.55-1.30); GLOMERULAR FILTRATION RATE > 60.0 (>51); GLUCOSE, FASTING 308 MG/DL (70-100); POTASSIUM SERUM 4.4 MEQ/L (3.5-5.1); SODIUM LEVEL 139 MEQ/L (136-145)
[2021-10-10 06:08] VITALS: BP 124/73
[2021-10-10] MEDS ORDERED: LEVEMIR (INSULIN DETEMIR) 1 UNITS/0.01ML SC SCH (09:00)
[2021-10-10] MEDS: ASPIRIN 81 MG CHEW TABLET PO SCH (10:03)
[2021-10-10] MEDS: INSULIN LISPRO (NovoLOG) PER UNIT SC SCH ×4 (10:03→20:59)
[2021-10-10] MEDS: DOCUSATE SODIUM 100MG CAPSULE PO SCH ×2 (10:04→20:57)
[2021-10-10] MEDS: SERTRALINE HCL 25 MG TABLET PO SCH (10:04)
[2021-10-10] MEDS: APIXABAN 5 MG TAB (ELIQUIS) PO SCH ×2 (10:04→20:57)
[2021-10-10] MEDS: ALPRAZolam 0.25 MG TAB PO SCH ×2 (10:04→20:57)
[2021-10-10] MEDS: VANICREAM MOISTURIZING SKIN CREAM 113GM TUBE TOP SCH ×2 (10:05→20:59)
[2021-10-10] MEDS: CLOBETASOL PROPIONATE EMOLLIENT 0.05% CR 60 GM TOP SCH ×2 (10:05→20:59)
[2021-10-10 10:43] LABS: VANCOMYCIN LEVEL TROUGH 15.5 UG/ML (10.0-20.0)
[2021-10-10 11:07] LABS: C REACTIVE PROTEIN QUANTITATIV 0.41 MG/DL (0.00-0.30)
[2021-10-10 11:20] LABS: ERYTHROCYTE SEDIMENTATION RATE 20 mm/hr (0-30)
[2021-10-10 14:00] VITALS: BP 122/72
[2021-10-10 20:10] VITALS: BP 142/82
[2021-10-10] MEDS: SIMVASTATIN 40 MG TAB PO SCH (20:56)
[2021-10-10] MEDS: LEVEMIR (INSULIN DETEMIR) 1 UNITS/0.01ML SC SCH (20:58)
[2021-10-10] MEDS: HALOBETASOL PROPION 0.05% OINT 15 GM TOP SCH (21:25)
[2021-10-11 05:16] VITALS: BP 104/70
[2021-10-11 06:38] LABS: HEMATOCRIT 41.8 % (36.0-47.0); HEMOGLOBIN 13.9 g/dl (12.0-15.5); MEAN CORPUSCULAR HEMOGLOBIN 28.8 pg (27.0-33.0); MEAN CORPUSCULAR HGB CONC 33.3 g/dl (32.0-36.5); MEAN CORPUSCULAR VOLUME 86.5 fl (80.0-96.0); PLATELET COUNT, AUTOMATED 310 10^3/uL (150-450); RED BLOOD COUNT 4.83 10^6/uL (4.00-5.40); WHITE BLOOD COUNT 7.8 10^3/uL (4.0-10.0)
[2021-10-11 07:00] LABS: BLOOD UREA NITROGEN 12 MG/DL (7-18); CALCIUM LEVEL 9.4 MG/DL (8.5-10.1); CARBON DIOXIDE LEVEL 27 MEQ/L (21-32); CHLORIDE LEVEL 103 MEQ/L (98-107); GLOMERULAR FILTRATION RATE > 60.0 (>51); GLUCOSE, FASTING 330 MG/DL (70-100); POTASSIUM SERUM 4.3 MEQ/L (3.5-5.1); SODIUM LEVEL 136 MEQ/L (136-145)
[2021-10-11] MEDS ORDERED: PRED20TA PO (07:30)
[2021-10-11] MEDS ORDERED: CLOB5CR TOP (07:30)
[2021-10-11] MEDS: LEVEMIR (INSULIN DETEMIR) 1 UNITS/0.01ML SC SCH (08:13)
[2021-10-11] MEDS: INSULIN LISPRO (NovoLOG) PER UNIT SC SCH (08:13)
[2021-10-11 08:14] VITALS: BP 149/79
[2021-10-11] MEDS: APIXABAN 5 MG TAB (ELIQUIS) PO SCH (08:14)
[2021-10-11] MEDS: ALPRAZolam 0.25 MG TAB PO SCH (08:14)
[2021-10-11] MEDS: SERTRALINE HCL 25 MG TABLET PO SCH (08:14)
[2021-10-11] MEDS: DOCUSATE SODIUM 100MG CAPSULE PO SCH (08:14)
[2021-10-11] MEDS: ASPIRIN 81 MG CHEW TABLET PO SCH (08:14)
[2021-10-11] MEDS: CLOBETASOL PROPIONATE EMOLLIENT 0.05% CR 60 GM TOP SCH (08:15)
[2021-10-11] MEDS: VANICREAM MOISTURIZING SKIN CREAM 113GM TUBE TOP SCH (08:15)
[2021-10-11] MEDS: HALOBETASOL PROPION 0.05% OINT 15 GM TOP SCH (08:15)
[2021-10-11] MEDS ORDERED: predniSONE 20 MG TAB PO SCH (09:00)
== END 2021-10-11 11:55 | disposition home or self-care (01) | DRG 663 ==
LOC: M ED 11:34 → M ED INP 16:31 → ENRESERV 17:39 → M MS5PR 21:10
PROVIDERS: ADMIT Internal Medicine; ATTEND General Practice
DX: D72.19 Other eosinophilia (principal); E11.51 Type 2 diabetes mellitus with diabetic peripheral angiopathy without gangrene; L03.116 Cellulitis of left lower limb; E78.5 Hyperlipidemia, unspecified; I10 Essential (primary) hypertension; R21 Rash and other nonspecific skin eruption; Z79.4 Long term (current) use of insulin; T36.1X5A Adverse effect of cephalosporins and other beta-lactam antibiotics, initial encounter; F41.1 Generalized anxiety disorder; F32.A Depression, unspecified; Z79.899 Other long term (current) drug therapy; Z79.82 Long term (current) use of aspirin; Z86.718 Personal history of other venous thrombosis and embolism; Z87.891 Personal history of nicotine dependence

== ENCOUNTER 2021-11-24 10:03 | Emergency (ER) | payer BC ==
[~2021-11-24] VITALS: Ht 172.7 cm; Wt 92.7 kg
[~2021-11-24 10:03] MED LIST changes: +CLOB5CR TOP; +PRED20TA PO
[2021-11-24 10:55] LABS: BASO # 0.1 10^3/uL (0.0-0.2); BASO % 0.8 % (0.0-1.0); EOS # 0.4 10^3/uL (0.0-0.5); EOS % 4.8 % (0.0-3.0); HEMATOCRIT 43.4 % (36.0-47.0); HEMOGLOBIN 14.2 g/dl (12.0-15.5); LYMPH # 2.2 10^3/uL (1.5-5.0); LYMPH % 29.4 % (24.0-44.0); MEAN CORPUSCULAR HEMOGLOBIN 28.2 pg (27.0-33.0); MEAN CORPUSCULAR HGB CONC 32.7 g/dl (32.0-36.5); MEAN CORPUSCULAR VOLUME 86.3 fl (80.0-96.0); MONO # 0.5 10^3/uL (0.0-0.8); MONO % 6.9 % (2.0-8.0); NEUTROPHILS # 4.4 10^3/uL (1.5-8.5); NEUTROPHILS % 57.6 % (36.0-66.0); PLATELET COUNT, AUTOMATED 359 10^3/uL (150-450); RED BLOOD COUNT 5.03 10^6/uL (4.00-5.40); WHITE BLOOD COUNT 7.6 10^3/uL (4.0-10.0)
[2021-11-24 11:22] LABS: BLOOD UREA NITROGEN 13 MG/DL (7-18); CARBON DIOXIDE LEVEL 26 MEQ/L (21-32); CHLORIDE LEVEL 102 MEQ/L (98-107); CREATININE FOR GFR 0.67 MG/DL (0.55-1.30); GLOMERULAR FILTRATION RATE > 60.0 (>51); GLUCOSE, FASTING 361 MG/DL (70-100); POTASSIUM SERUM 4.4 MEQ/L (3.5-5.1); SODIUM LEVEL 135 MEQ/L (136-145)
[2021-11-24 11:34] LABS: CK-MB VALUE MASS 3.4 NG/ML (<3.6); MB/CK RELATIVE INDEX 4.2 (< OR =4)
[2021-11-24 11:59] VITALS: BP 133/74
== END 2021-11-24 12:07 | disposition home or self-care (01) ==
LOC: M ED 10:03
DX: R07.9 Chest pain, unspecified (principal); E11.9 Type 2 diabetes mellitus without complications; I10 Essential (primary) hypertension; E78.5 Hyperlipidemia, unspecified; Z87.891 Personal history of nicotine dependence; Z88.1 Allergy status to other antibiotic agents; Z79.811 Long term (current) use of aromatase inhibitors; Z79.4 Long term (current) use of insulin; Z79.899 Other long term (current) drug therapy

== ENCOUNTER → 2022-02-09 | Outpatient (CLI) | payer BC ==
[2022-02-09 15:51] LABS: BASO # 0.1 10^3/uL (0.0-0.2); BASO % 0.9 % (0.0-1.0); EOS # 0.4 10^3/uL (0.0-0.5); EOS % 7.4 % (0.0-3.0); HEMOGLOBIN 13.5 g/dl (12.0-15.5); LYMPH # 1.8 10^3/uL (1.5-5.0); LYMPH % 32.6 % (24.0-44.0); MEAN CORPUSCULAR HEMOGLOBIN 28.4 pg (27.0-33.0); MEAN CORPUSCULAR HGB CONC 32.1 g/dl (32.0-36.5); MEAN CORPUSCULAR VOLUME 88.2 fl (80.0-96.0); MONO # 0.4 10^3/uL (0.0-0.8); MONO % 7.7 % (2.0-8.0); NEUTROPHILS # 2.8 10^3/uL (1.5-8.5); NEUTROPHILS % 51.2 % (36.0-66.0); PLATELET COUNT, AUTOMATED 298 10^3/uL (150-450); RED BLOOD COUNT 4.76 10^6/uL (4.00-5.40); WHITE BLOOD COUNT 5.4 10^3/uL (4.0-10.0)
[2022-02-09 17:03] LABS: ALBUMIN 3.4 GM/DL (3.2-5.2); ALT/SGPT 45 U/L (12-78); AMYLASE 29 U/L (25-115); BILIRUBIN,TOTAL 0.3 MG/DL (0.2-1.0); BLOOD UREA NITROGEN 8 MG/DL (7-18); CALCIUM LEVEL 8.4 MG/DL (8.5-10.1); CARBON DIOXIDE LEVEL 26 MEQ/L (21-32); CHLORIDE LEVEL 101 MEQ/L (98-107); CREATININE FOR GFR 0.71 MG/DL (0.55-1.30); GLOMERULAR FILTRATION RATE > 60.0 (>51); GLUCOSE, FASTING 408 MG/DL (70-100); LIPASE 136 U/L (73-393); POTASSIUM SERUM 4.1 MEQ/L (3.5-5.1); SODIUM LEVEL 135 MEQ/L (136-145); TOTAL PROTEIN 6.5 GM/DL (6.4-8.2)
== END ==
LOC: M PLALAB 14:29
PROVIDERS: ATTEND Physician Assistant
DX: R10.9 Unspecified abdominal pain (principal)

== ENCOUNTER → 2022-09-19 | Outpatient (REF) | payer BC ==
[~2022-09-19] MED LIST changes: +CLOP75TA99 PO; -DOXY-350 PO; +DOXY-444 PO; -PLAV1TAB2 PO
== END ==
LOC: M SFHCPLAZ 13:12
PROVIDERS: ATTEND Student in an Organized Health Care Education/Training Program
DX: Z12.4 Encounter for screening for malignant neoplasm of cervix (principal)

== ENCOUNTER → 2022-09-19 | Outpatient (CLI) | payer BC | LOC: M WHC 06:56 | PROVIDERS: ATTEND Student in an Organized Health Care Education/Training Program | DX: Z12.31 Encounter for screening mammogram for malignant neoplasm of breast (principal) ==

== ENCOUNTER → 2023-01-16 | Outpatient (REF) | payer BC | LOC: M SFHCPLAZ 10:13 | PROVIDERS: ATTEND Student in an Organized Health Care Education/Training Program | DX: R19.5 Other fecal abnormalities (principal); E78.2 Mixed hyperlipidemia; Z53.9 Procedure and treatment not carried out, unspecified reason ==

== ENCOUNTER → 2023-01-25 | Outpatient (CLI) | payer BC ==
[2023-01-25 13:50] LABS: HEMOGLOBIN A1c 12.1 % (4.0-6.0)
[2023-01-25 13:59] LABS: BLOOD UREA NITROGEN 17 MG/DL (9-23); CALCIUM LEVEL 8.5 MG/DL (8.5-10.1); CARBON DIOXIDE LEVEL 26 MMOL/L (20-31); CHLORIDE LEVEL 101 MMOL/L (98-107); CREATININE FOR GFR 0.52 MG/DL (0.55-1.30); GLOMERULAR FILTRATION RATE > 60.0 (>51); GLUCOSE, FASTING 359 MG/DL (60-100); POTASSIUM SERUM 4.4 MMOL/L (3.5-5.1); SODIUM LEVEL 133 MMOL/L (136-145)
== END ==
LOC: M LAB 13:07
PROVIDERS: ATTEND Student in an Organized Health Care Education/Training Program
DX: G45.1 Carotid artery syndrome (hemispheric) (principal); E11.59 Type 2 diabetes mellitus with other circulatory complications

== ENCOUNTER → 2023-01-28 | Outpatient (CLI) | payer BC ==
[~2023-01-28] MED LIST changes: +ISOVUE-370 76% 100ML VIAL As Ordered ONE
== END ==
LOC: M RAD 07:58
PROVIDERS: ATTEND Student in an Organized Health Care Education/Training Program
DX: G45.1 Carotid artery syndrome (hemispheric) (principal)
CPT/HCPCS: 70498; Q9967

== ENCOUNTER → 2023-02-13 | Outpatient (CLI) | payer BC ==
[~2023-02-13] MED LIST changes: +GLIP5TAB17 PO; -GLIP5TAB8 PO; -ISOVUE-370 76% 100ML VIAL As Ordered ONE; +ISOVUE-370 76% 100ML VIAL ONE
== END ==
LOC: M PLAIMG 08:55
PROVIDERS: ATTEND Student in an Organized Health Care Education/Training Program
DX: G45.1 Carotid artery syndrome (hemispheric) (principal)
CPT/HCPCS: 70496; Q9967

== ENCOUNTER → 2023-02-22 | Outpatient (CLI) | payer BC ==
[~2023-02-22] MED LIST changes: -ISOVUE-370 76% 100ML VIAL ONE
== END ==
LOC: M RAD 10:31
PROVIDERS: ATTEND Student in an Organized Health Care Education/Training Program
DX: I73.9 Peripheral vascular disease, unspecified (principal)

== ENCOUNTER 2023-04-29 07:40 | Emergency (ER) | payer BC ==
[~2023-04-29] VITALS: Ht 172.7 cm; Wt 88.0 kg
[2023-04-29] MEDS ORDERED: TRUL0.5I SC (08:18)
[2023-04-29 08:27] LABS: BASO # 0.1 10^3/uL (0.0-0.2); BASO % 0.8 % (0.0-1.0); EOS # 0.4 10^3/uL (0.0-0.5); EOS % 6.6 % (0.0-3.0); HEMATOCRIT 45.2 % (36.0-47.0); HEMOGLOBIN 14.8 g/dl (12.0-15.5); LYMPH # 1.3 10^3/uL (1.5-5.0); LYMPH % 21.8 % (24.0-44.0); MEAN CORPUSCULAR HEMOGLOBIN 27.9 pg (27.0-33.0); MEAN CORPUSCULAR HGB CONC 32.7 g/dl (32.0-36.5); MEAN CORPUSCULAR VOLUME 85.1 fl (80.0-96.0); MONO # 0.3 10^3/uL (0.0-0.8); MONO % 5.1 % (2.0-8.0); NEUTROPHILS % 65.4 % (36.0-66.0); PLATELET COUNT, AUTOMATED 304 10^3/uL (150-450); RED BLOOD COUNT 5.31 10^6/uL (4.00-5.40); WHITE BLOOD COUNT 6.1 10^3/uL (4.0-10.0)
[2023-04-29 08:39] LABS: INR 1.08; PROTHROMBIN TIME 13.7 SECONDS (12.5-14.5)
[2023-04-29 08:40] LABS: PARTIAL THROMBOPLASTIN TIME 33.1 SECONDS (24.8-34.2)
[2023-04-29] MEDS ORDERED: ISOVUE-370 76% 100ML VIAL As Ordered ONE (08:40)
[2023-04-29 08:56] LABS: LIPASE 38 U/L (12-53)
[2023-04-29 08:58] LABS: CPK CREATINE PHOSPHOKINASE 60 U/L (34-145)
[2023-04-29 08:59] LABS: ALBUMIN 3.8 G/DL (3.2-5.2); ALKALINE PHOSPHATASE 127 U/L (46-116); ALT/SGPT 36 U/L (7.0-40); AST/SGOT 10 U/L (<34); BILIRUBIN,DIRECT 0.2 MG/DL (<0.4); BILIRUBIN,TOTAL 0.4 MG/DL (0.3-1.2); BLOOD UREA NITROGEN 13 MG/DL (9-23); CALCIUM LEVEL 8.8 MG/DL (8.5-10.1); CARBON DIOXIDE LEVEL 26 MMOL/L (20-31); CHLORIDE LEVEL 102 MMOL/L (98-107); CK-MB VALUE MASS 1.5 NG/ML (<3.6); CREATININE FOR GFR 0.46 MG/DL (0.55-1.30); GLOMERULAR FILTRATION RATE > 60.0 (>51); GLUCOSE, FASTING 381 MG/DL (60-100); POTASSIUM SERUM 4.3 MMOL/L (3.5-5.1); SODIUM LEVEL 134 MMOL/L (136-145); TOTAL PROTEIN 6.8 G/DL (5.7-8.2)
[2023-04-29 09:00] LABS: FREE T4 0.98 NG/DL (0.89-1.76)
[2023-04-29 09:01] LABS: THYROID STIMULATING HORMONE 1.017 uIU/ML (0.55-4.78)
[2023-04-29 09:05] LABS: RSV AMPLIFICATION NEGATIVE (NEGATIVE)
[2023-04-29] MEDS ORDERED: NS 1,000 ML IV ONE (09:10)
[2023-04-29] MEDS ORDERED: HumuLIN R (REGULAR) INSULIN (NovoLIN R) **100U/ML** PER UNIT IV ONE (09:10)
[2023-04-29 09:34] LABS: CK-MB VALUE MASS 1.2 NG/ML (<3.6)
[2023-04-29 09:35] LABS: CPK CREATINE PHOSPHOKINASE 59 U/L (34-145); MB/CK RELATIVE INDEX 2.03 (< OR =4)
[2023-04-29] MEDS ORDERED: atenoloL 25 MG TAB PO ONE (10:00)
[2023-04-29 10:24] VITALS: BP 195/107
[2023-04-29 11:01] VITALS: BP 166/95; TEMP 97.7; O2SAT 96
== END 2023-04-29 11:09 | disposition short-term general hospital (02) ==
LOC: M ED 07:40
DX: I20.0 Unstable angina (principal); R00.2 Palpitations; E10.9 Type 1 diabetes mellitus without complications; F32.A Depression, unspecified; F41.9 Anxiety disorder, unspecified; E78.5 Hyperlipidemia, unspecified; I10 Essential (primary) hypertension; Z79.01 Long term (current) use of anticoagulants; Z79.811 Long term (current) use of aromatase inhibitors; Z79.4 Long term (current) use of insulin; Z79.899 Other long term (current) drug therapy; Z88.1 Allergy status to other antibiotic agents; Z86.718 Personal history of other venous thrombosis and embolism
CPT/HCPCS: 71045; 71275; 80047; 80048; 80076; 82550; 82553; 83690; 83735; 83880; 84439; 84443; 84484; 85025; 85610; 85730; 87631; 93005; 93041; 94760; 96361; 96374; 99285; J1815; Q9967

== ENCOUNTER → 2023-05-10 | Outpatient (REF) | payer BC ==
[~2023-05-10] MED LIST changes: +TRUL0.5I SC
== END ==
LOC: M SFHCPLAZ 13:53
PROVIDERS: ATTEND Family Medicine
DX: Z53.9 Procedure and treatment not carried out, unspecified reason (principal)

== ENCOUNTER 2023-06-12 08:27 | Emergency (ER) | payer BC, SELFPAY ==
[~2023-06-12] VITALS: Ht 170.2 cm; Wt 89.3 kg
[2023-06-12] MEDS ORDERED: ATOR1TAB21 PO (08:37)
[2023-06-12] MEDS: NS 1,000 ML IV ONE (09:05)
[2023-06-12] MEDS: ONDANSETRON 4MG 2ML VIAL IV ONE (09:06)
[2023-06-12 09:34] LABS: BASO % 0.6 % (0.0-1.0); EOS # 0.2 10^3/uL (0.0-0.5); EOS % 5.1 % (0.0-3.0); HEMATOCRIT 41.3 % (36.0-47.0); HEMOGLOBIN 14.3 g/dl (12.0-15.5); LYMPH # 0.3 10^3/uL (1.5-5.0); LYMPH % 6.3 % (24.0-44.0); MEAN CORPUSCULAR HEMOGLOBIN 28.6 pg (27.0-33.0); MEAN CORPUSCULAR HGB CONC 34.6 g/dl (32.0-36.5); MEAN CORPUSCULAR VOLUME 82.6 fl (80.0-96.0); MONO # 0.2 10^3/uL (0.0-0.8); MONO % 5.1 % (2.0-8.0); NEUTROPHILS # 3.9 10^3/uL (1.5-8.5); NEUTROPHILS % 82.7 % (36.0-66.0); PLATELET COUNT, AUTOMATED 284 10^3/uL (150-450); WHITE BLOOD COUNT 4.7 10^3/uL (4.0-10.0)
[2023-06-12 09:50] LABS: LIPASE 42 U/L (12-53)
[2023-06-12 09:52] LABS: ALKALINE PHOSPHATASE 101 U/L (46-116); ALT/SGPT 24 U/L (7.0-40); AST/SGOT 8 U/L (<34); BILIRUBIN,DIRECT 0.3 MG/DL (<0.4); BILIRUBIN,TOTAL 0.7 MG/DL (0.3-1.2); BLOOD UREA NITROGEN 19 MG/DL (9-23); CALCIUM LEVEL 7.3 MG/DL (8.5-10.1); CARBON DIOXIDE LEVEL 26 MMOL/L (20-31); CHLORIDE LEVEL 101 MMOL/L (98-107); CREATININE FOR GFR 0.55 MG/DL (0.55-1.30); GLOMERULAR FILTRATION RATE > 60.0 (>51); GLUCOSE, FASTING 374 MG/DL (60-100); POTASSIUM SERUM 3.8 MMOL/L (3.5-5.1); SODIUM LEVEL 134 MMOL/L (136-145); TOTAL PROTEIN 5.6 G/DL (5.7-8.2)
[2023-06-12] MEDS: ACETAMINOPHEN 325 MG TAB PO ONE (10:01)
[2023-06-12 10:06] LABS: RSV AMPLIFICATION NEGATIVE (NEGATIVE)
[2023-06-12] MEDS ORDERED: ISOVUE-370 76% 100ML VIAL As Ordered ONE (10:18)
[2023-06-12 12:01] VITALS: BP 107/55; TEMP 96.2; O2SAT 96
[2023-06-12] MEDS ORDERED: ONDA4TAB6 PO (12:09)
== END 2023-06-12 12:05 | disposition home or self-care (01) ==
LOC: M ED 08:27
DX: A08.4 Viral intestinal infection, unspecified (principal); E11.65 Type 2 diabetes mellitus with hyperglycemia; E78.5 Hyperlipidemia, unspecified; I10 Essential (primary) hypertension; Z86.73 Personal history of transient ischemic attack (TIA), and cerebral infarction without residual deficits; Z87.442 Personal history of urinary calculi; F41.9 Anxiety disorder, unspecified; F32.A Depression, unspecified; Z79.01 Long term (current) use of anticoagulants; Z95.1 Presence of aortocoronary bypass graft; Z87.891 Personal history of nicotine dependence; Z88.1 Allergy status to other antibiotic agents; Z79.82 Long term (current) use of aspirin; Z79.899 Other long term (current) drug therapy
CPT/HCPCS: 74177; 80048; 80076; 83605; 83690; 85025; 86140; 87631; 96374; 99284; J2405; Q9967

== ENCOUNTER → 2023-06-14 | Outpatient (CLI) | payer BC ==
[~2023-06-14] MED LIST changes: +ATOR1TAB21 PO; +ONDA4TAB6 PO
[2023-06-14 15:32] LABS: BASO % 0.5 % (0.0-1.0); EOS # 0.5 10^3/uL (0.0-0.5); EOS % 7.6 % (0.0-3.0); HEMATOCRIT 41.2 % (36.0-47.0); HEMOGLOBIN 13.1 g/dl (12.0-15.5); LYMPH # 1.9 10^3/uL (1.5-5.0); MEAN CORPUSCULAR HEMOGLOBIN 27.4 pg (27.0-33.0); MEAN CORPUSCULAR HGB CONC 31.8 g/dl (32.0-36.5); MEAN CORPUSCULAR VOLUME 86.2 fl (80.0-96.0); MONO # 0.6 10^3/uL (0.0-0.8); NEUTROPHILS # 3.4 10^3/uL (1.5-8.5); NEUTROPHILS % 52.6 % (36.0-66.0); PLATELET COUNT, AUTOMATED 341 10^3/uL (150-450); RED BLOOD COUNT 4.78 10^6/uL (4.00-5.40); WHITE BLOOD COUNT 6.4 10^3/uL (4.0-10.0)
[2023-06-14 15:41] LABS: ERYTHROCYTE SEDIMENTATION RATE 25 mm/hr (0-30)
[2023-06-14 16:07] LABS: ALKALINE PHOSPHATASE 109 U/L (46-116); ALT/SGPT 31 U/L (7.0-40); AST/SGOT 16 U/L (<34); BILIRUBIN,TOTAL 0.3 MG/DL (0.3-1.2); BLOOD UREA NITROGEN 8 MG/DL (9-23); CALCIUM LEVEL 7.9 MG/DL (8.5-10.1); CARBON DIOXIDE LEVEL 28 MMOL/L (20-31); CHLORIDE LEVEL 107 MMOL/L (98-107); CREATININE FOR GFR 0.49 MG/DL (0.55-1.30); GLOMERULAR FILTRATION RATE > 60.0 (>51); GLUCOSE, FASTING 134 MG/DL (60-100); POTASSIUM SERUM 3.8 MMOL/L (3.5-5.1); SODIUM LEVEL 140 MMOL/L (136-145); TOTAL PROTEIN 5.7 G/DL (5.7-8.2)
== END ==
LOC: M PLALAB 11:59
PROVIDERS: ATTEND Student in an Organized Health Care Education/Training Program
DX: R19.7 Diarrhea, unspecified (principal)

== ENCOUNTER → 2023-06-16 | Outpatient (REF) | payer BC | LOC: M SFHCPLAZ 13:07 | PROVIDERS: ATTEND Student in an Organized Health Care Education/Training Program | DX: R19.7 Diarrhea, unspecified (principal) ==

== ENCOUNTER → 2023-06-28 | Outpatient (CLI) | payer BC | LOC: M RAD 12:53 | PROVIDERS: ATTEND Student in an Organized Health Care Education/Training Program | DX: I65.21 Occlusion and stenosis of right carotid artery (principal) ==

== ENCOUNTER → 2023-07-26 | Outpatient (CLI) | payer BC ==
[2023-07-26 15:24] LABS: HEMATOCRIT 40.8 % (36.0-47.0); HEMOGLOBIN 13.4 g/dl (12.0-15.5); MEAN CORPUSCULAR HGB CONC 32.8 g/dl (32.0-36.5); MEAN CORPUSCULAR VOLUME 85.4 fl (80.0-96.0); PLATELET COUNT, AUTOMATED 367 10^3/uL (150-450); RED BLOOD COUNT 4.78 10^6/uL (4.00-5.40); WHITE BLOOD COUNT 6.6 10^3/uL (4.0-10.0)
[2023-07-26 15:37] LABS: INR 1.08; PARTIAL THROMBOPLASTIN TIME 33.3 SECONDS (24.8-34.2); PROTHROMBIN TIME 13.7 SECONDS (12.5-14.5)
[2023-07-26 15:56] LABS: BLOOD UREA NITROGEN 15 MG/DL (9-23); CALCIUM LEVEL 9.1 MG/DL (8.5-10.1); CARBON DIOXIDE LEVEL 25 MMOL/L (20-31); CHLORIDE LEVEL 103 MMOL/L (98-107); CREATININE FOR GFR 0.46 MG/DL (0.55-1.30); GLOMERULAR FILTRATION RATE > 60.0 (>51); GLUCOSE, FASTING 306 MG/DL (60-100); POTASSIUM SERUM 3.9 MMOL/L (3.5-5.1); SODIUM LEVEL 135 MMOL/L (136-145)
== END ==
LOC: M LAB 13:59
PROVIDERS: ATTEND Physician Assistant Medical
DX: Z01.812 Encounter for preprocedural laboratory examination (principal); I77.1 Stricture of artery; G45.8 Other transient cerebral ischemic attacks and related syndromes

== ENCOUNTER → 2023-11-18 | Outpatient (CLI) | payer BC ==
[~2023-11-18] MED LIST changes: +ALBU8.5H; +ATOR80TA59 PO; +DOXY-440 PO; -DOXY-444 PO; +METO1TAB87 PO; +ONDA-282 PO; -ONDA4TAB6 PO
== END ==
LOC: M WHC 11:10
PROVIDERS: ATTEND Student in an Organized Health Care Education/Training Program
DX: Z12.31 Encounter for screening mammogram for malignant neoplasm of breast (principal)

== ENCOUNTER 2023-11-28 07:33 | Day surgery (SDC) | payer BC ==
[~2023-11-28] VITALS: Ht 172.7 cm; Wt 92.7 kg
[~2023-11-28 07:33] MED LIST changes: +NS 1,000 ML IV ONE
[2023-11-28] MEDS ORDERED: GLUCOSE 4 GM CHEW PO PRN (08:10)
[2023-11-28] MEDS ORDERED: DEXTROSE 50% 50ML SYRINGE IV PRN (08:10)
[2023-11-28] MEDS ORDERED: GLUCAGON INJ 1MG VIAL SC PRN (08:10)
[2023-11-28] MEDS: INSULIN LISPRO (NovoLOG) PER UNIT SC PRN (08:20)
[2023-11-28 09:50] VITALS: BP 190/86; TEMP 96.9; O2SAT 96
[2023-11-28] MEDS: INSULIN LISPRO (NovoLOG) PER UNIT SC ONE (09:55)
[2023-11-28] MEDS ORDERED: INSULIN LISPRO (NovoLOG) PER UNIT SC SCH (12:00)
== END 2023-11-28 10:40 | disposition home or self-care (01) ==
LOC: M OPP 07:33
PROVIDERS: ATTEND Surgery
DX: Z12.11 Encounter for screening for malignant neoplasm of colon (principal); Z86.010 Personal history of colon polyps; Z80.0 Family history of malignant neoplasm of digestive organs; Z86.73 Personal history of transient ischemic attack (TIA), and cerebral infarction without residual deficits; Z87.891 Personal history of nicotine dependence; E11.9 Type 2 diabetes mellitus without complications; Z79.82 Long term (current) use of aspirin; Z79.4 Long term (current) use of insulin; Z79.01 Long term (current) use of anticoagulants; Z79.02 Long term (current) use of antithrombotics/antiplatelets; Z79.899 Other long term (current) drug therapy; Z88.1 Allergy status to other antibiotic agents
CPT/HCPCS: 45378; J1815

== ENCOUNTER 2024-01-27 08:19 | Emergency (ER) | payer BC ==
[~2024-01-27] VITALS: Ht 172.7 cm; Wt 88.9 kg
[~2024-01-27 08:19] MED LIST changes: -NS 1,000 ML IV ONE
[2024-01-27] MEDS ORDERED: SEMA1PEN2 (10:03)
[2024-01-27] MEDS ORDERED: BLOO-217 (10:03)
[2024-01-27 10:06] LABS: BASO # 0.1 10^3/uL (0.0-0.2); BASO % 0.8 % (0.0-1.0); EOS # 0.5 10^3/uL (0.0-0.5); EOS % 6.9 % (0.0-3.0); HEMATOCRIT 43.7 % (36.0-47.0); HEMOGLOBIN 14.3 g/dl (12.0-15.5); LYMPH # 2.1 10^3/uL (1.5-5.0); MEAN CORPUSCULAR HEMOGLOBIN 27.3 pg (27.0-33.0); MEAN CORPUSCULAR HGB CONC 32.7 g/dl (32.0-36.5); MEAN CORPUSCULAR VOLUME 83.6 fl (80.0-96.0); MONO # 0.6 10^3/uL (0.0-0.8); MONO % 7.5 % (2.0-8.0); NEUTROPHILS # 4.4 10^3/uL (1.5-8.5); NEUTROPHILS % 57.5 % (36.0-66.0); PLATELET COUNT, AUTOMATED 351 10^3/uL (150-450); RED BLOOD COUNT 5.23 10^6/uL (4.00-5.40); WHITE BLOOD COUNT 7.6 10^3/uL (4.0-10.0)
[2024-01-27] MEDS: NS 1,000 ML IV ONE ×2 (10:30→10:32)
[2024-01-27] MEDS: ONDANSETRON 4MG 2ML VIAL IV ONE (10:35)
[2024-01-27 11:08] LABS: VENOUS BASE EXCESS -0.8 (-2.0-2.0); VENOUS HCO3 25.5 MMOL/L (23.0-27.0); VENOUS O2 SATURATION 82.1 % (60.0-80.0); VENOUS PARTIAL PRESSURE CO2 48.4 mmHg (38.0-50.0); VENOUS PARTIAL PRESSURE O2 49.2 mmHg (30.0-50.0); VENOUS PH 7.339 UNITS (7.330-7.430); VENOUS STANDARD HCO3 23.4 MMOL/L
[2024-01-27 11:21] LABS: ACETONE/KETONE 0.15 MMOL/L (0.02-0.27)
[2024-01-27 11:23] LABS: ALBUMIN 3.7 G/DL (3.2-5.2); ALKALINE PHOSPHATASE 113 U/L (46-116); ALT/SGPT 56 U/L (7.0-40); AST/SGOT 48 U/L (<34); BILIRUBIN,DIRECT 0.2 MG/DL (<0.4); BILIRUBIN,TOTAL 0.6 MG/DL (0.3-1.2); BLOOD UREA NITROGEN 13 MG/DL (9-23); CALCIUM LEVEL 9.2 MG/DL (8.5-10.1); CARBON DIOXIDE LEVEL 27 MMOL/L (20-31); CHLORIDE LEVEL 102 MMOL/L (98-107); GLOMERULAR FILTRATION RATE > 60.0 (>51); GLUCOSE, FASTING 122 MG/DL (60-100); LIPASE 32 U/L (12-53); POTASSIUM SERUM 5.7 MMOL/L (3.5-5.1); SODIUM LEVEL 140 MMOL/L (136-145)
[2024-01-27 13:18] LABS: CK-MB VALUE MASS 1.1 NG/ML (<3.6); CPK CREATINE PHOSPHOKINASE 101 U/L (34-145); MB/CK RELATIVE INDEX 1.08 (< OR =4)
[2024-01-27] MEDS ORDERED: ONDA-282 PO (15:06)
[2024-01-27] MEDS ORDERED: PROT1TAB2 PO (15:06)
[2024-01-27 15:13] VITALS: BP 146/67; TEMP 98.1; O2SAT 97
== END 2024-01-27 15:22 | disposition home or self-care (01) ==
LOC: M ED 08:19
DX: R11.2 Nausea with vomiting, unspecified (principal); R19.7 Diarrhea, unspecified; E11.9 Type 2 diabetes mellitus without complications; I10 Essential (primary) hypertension; E78.5 Hyperlipidemia, unspecified; F41.9 Anxiety disorder, unspecified; F32.A Depression, unspecified; Z88.1 Allergy status to other antibiotic agents; Z86.73 Personal history of transient ischemic attack (TIA), and cerebral infarction without residual deficits; Z86.718 Personal history of other venous thrombosis and embolism; Z87.891 Personal history of nicotine dependence; Z87.442 Personal history of urinary calculi; Z79.01 Long term (current) use of anticoagulants; Z79.82 Long term (current) use of aspirin; Z79.4 Long term (current) use of insulin; Z79.811 Long term (current) use of aromatase inhibitors; Z79.899 Other long term (current) drug therapy
CPT/HCPCS: 36415; 80048; 80076; 81001; 82010; 82550; 82553; 82803; 83690; 84132; 84484; 85025; 87086; 93005; 96374; 99284; J2405

== ENCOUNTER → 2024-02-10 | Outpatient (CLI) | payer BC ==
[~2024-02-10] MED LIST changes: +BLOO-217; +PROT1TAB2 PO; +SEMA1PEN2
[2024-02-10 13:41] LABS: BASO # 0.1 10^3/uL (0.0-0.2); BASO % 0.9 % (0.0-1.0); EOS # 0.6 10^3/uL (0.0-0.5); EOS % 7.4 % (0.0-3.0); HEMATOCRIT 39.8 % (36.0-47.0); LYMPH # 2.3 10^3/uL (1.5-5.0); LYMPH % 29.2 % (24.0-44.0); MEAN CORPUSCULAR HEMOGLOBIN 27.7 pg (27.0-33.0); MEAN CORPUSCULAR HGB CONC 32.7 g/dl (32.0-36.5); MEAN CORPUSCULAR VOLUME 84.7 fl (80.0-96.0); MONO # 0.7 10^3/uL (0.0-0.8); MONO % 8.6 % (2.0-8.0); NEUTROPHILS # 4.3 10^3/uL (1.5-8.5); NEUTROPHILS % 53.5 % (36.0-66.0); PLATELET COUNT, AUTOMATED 389 10^3/uL (150-450)
[2024-02-10 14:10] LABS: HEMOGLOBIN A1c 10.2 % (4.0-6.0)
[2024-02-10 14:20] LABS: ALBUMIN 3.4 G/DL (3.2-5.2); ALKALINE PHOSPHATASE 124 U/L (46-116); ALT/SGPT 47 U/L (7.0-40); AST/SGOT 16 U/L (<34); BILIRUBIN,TOTAL 0.4 MG/DL (0.3-1.2); BLOOD UREA NITROGEN 13 MG/DL (9-23); CALCIUM LEVEL 9.2 MG/DL (8.5-10.1); CARBON DIOXIDE LEVEL 27 MMOL/L (20-31); CHLORIDE LEVEL 108 MMOL/L (98-107); CHOLESTEROL LEVEL 102 MG/DL (<200); CHOLESTEROL RISK RATIO 2.79 (<5); CREATININE FOR GFR 0.55 MG/DL (0.55-1.30); GLOMERULAR FILTRATION RATE > 60.0 (>51); GLUCOSE, FASTING 79 MG/DL (60-100); HDL CHOLESTEROL 36.5 MG/DL (>40); LDL CHOLESTEROL 44.1 MG/DL (<100); NON-HDL-C 65.5 MG/DL; POTASSIUM SERUM 4.6 MMOL/L (3.5-5.1); SODIUM LEVEL 141 MMOL/L (136-145); TOTAL PROTEIN 6.7 G/DL (5.7-8.2); TRIGLYCERIDES LEVEL 107 MG/DL (<150)
== END ==
LOC: M PLALAB 09:27
PROVIDERS: ATTEND Student in an Organized Health Care Education/Training Program
DX: E11.59 Type 2 diabetes mellitus with other circulatory complications (principal); E78.2 Mixed hyperlipidemia; I10 Essential (primary) hypertension

== ENCOUNTER → 2024-02-19 | Outpatient (CLI) | payer BC ==
[2024-02-19 13:20] LABS: HEMATOCRIT 36.6 % (36.0-47.0); HEMOGLOBIN 11.9 g/dl (12.0-15.5); MEAN CORPUSCULAR HEMOGLOBIN 27.6 pg (27.0-33.0); MEAN CORPUSCULAR HGB CONC 32.5 g/dl (32.0-36.5); MEAN CORPUSCULAR VOLUME 84.9 fl (80.0-96.0); PLATELET COUNT, AUTOMATED 366 10^3/uL (150-450); RED BLOOD COUNT 4.31 10^6/uL (4.00-5.40); WHITE BLOOD COUNT 7.7 10^3/uL (4.0-10.0)
[2024-02-19 13:52] LABS: ALBUMIN 3.3 G/DL (3.2-5.2); ALKALINE PHOSPHATASE 107 U/L (35-104); ALT/SGPT 37 U/L (7.0-40); AST/SGOT 19 U/L (<34); BILIRUBIN,TOTAL 0.3 MG/DL (0.3-1.2); BLOOD UREA NITROGEN 12 MG/DL (9-23); CARBON DIOXIDE LEVEL 30 MMOL/L (20-31); CHLORIDE LEVEL 106 MMOL/L (98-107); CREATININE FOR GFR 0.63 MG/DL (0.55-1.30); GLOMERULAR FILTRATION RATE > 60.0 (>51); GLUCOSE, FASTING 124 MG/DL (60-100); MAGNESIUM LEVEL 1.4 MG/DL (1.8-2.4); POTASSIUM SERUM 4.5 MMOL/L (3.5-5.1); SODIUM LEVEL 141 MMOL/L (136-145); TOTAL PROTEIN 6.4 G/DL (5.7-8.2)
== END ==
LOC: M LAB 12:38
PROVIDERS: ATTEND Physician Assistant Medical
DX: R19.7 Diarrhea, unspecified (principal)

== ENCOUNTER → 2024-02-20 | Outpatient (CLI) | payer BC ==
[~2024-02-20] MED LIST changes: +ISOVUE-370 76% 100ML VIAL As Ordered ONE
== END ==
LOC: M RAD 09:06
PROVIDERS: ATTEND Physician Assistant Medical
DX: R11.2 Nausea with vomiting, unspecified (principal); R10.9 Unspecified abdominal pain; K76.0 Fatty (change of) liver, not elsewhere classified
CPT/HCPCS: 74177; Q9967

== ENCOUNTER → 2024-02-21 | Outpatient (REF) | payer BC ==
[~2024-02-21] MED LIST changes: -ISOVUE-370 76% 100ML VIAL As Ordered ONE
== END ==
LOC: M SFHCPLAZ 10:14
PROVIDERS: ATTEND Physician Assistant Medical
DX: R19.7 Diarrhea, unspecified (principal)

== ENCOUNTER → 2024-12-04 | Outpatient (CLI) | payer BC ==
[~2024-12-04] MED LIST changes: -CYCL5TAB PO; +CYCL5TAB4 PO
[2024-12-04 15:17] LABS: PLATELET COUNT, AUTOMATED 396 10^3/uL (150-450)
[2024-12-04 15:20] LABS: ALT/SGPT 27 U/L (7.0-40); AST/SGOT 14 U/L (<34); CALCIUM LEVEL 9.2 MG/DL (8.5-10.1); CARBON DIOXIDE LEVEL 26 MMOL/L (20-31); CHLORIDE LEVEL 105 MMOL/L (98-107); CHOLESTEROL LEVEL 108 MG/DL (<200); CHOLESTEROL RISK RATIO 2.24 (<5); CREATININE FOR GFR 0.64 MG/DL (0.55-1.30); FREE T4 0.94 NG/DL (0.89-1.76); GLOMERULAR FILTRATION RATE > 90.0 (>51); LDL CHOLESTEROL 35.1 MG/DL (<100); MAGNESIUM LEVEL 1.4 MG/DL (1.8-2.4); NON-HDL-C 59.9 MG/DL; POTASSIUM SERUM 4.9 MMOL/L (3.5-5.1); SODIUM LEVEL 140 MMOL/L (136-145); TRIGLYCERIDES LEVEL 124 MG/DL (<150)
[2024-12-04 15:27] LABS: ESTIMATED AVERAGE GLUCOSE 186.0 MG/DL (60-110)
== END ==
LOC: M PLALAB 12:05
DX: D50.8 Other iron deficiency anemias (principal)

== ENCOUNTER 2025-01-11 08:51 | Outpatient (CLI) | payer BC ==
[~2025-01-11] VITALS: Ht 170.2 cm; Wt 86.0 kg
[~2025-01-11 08:51] MED LIST changes: +ALBUTEROL SULFATE 2.5 MG/0.5 ML INH CONCENTRATE NEB SOLN INH PRN; +EPINEPHrine INJ 1 MG/ML 1ML AMP IM PRN; +diphenhydrAMINE 50 MG/ML VIAL IV PRN
[2025-01-11 09:00] VITALS: BP 134/68; O2SAT 98
[2025-01-11] MEDS: IRON SUCROSE 500 MG in NS 250 ML OVER 4 HRS IV ONE (10:16)
[2025-01-11 11:00] VITALS: BP 130/70; O2SAT 99
[2025-01-11 12:00] VITALS: BP 154/78; O2SAT 97
[2025-01-11 13:00] VITALS: BP 162/84; O2SAT 100
[2025-01-11 14:28] VITALS: BP 138/76; O2SAT 98
== END 2025-01-11 14:31 | disposition home or self-care (01) ==
LOC: M INFU 08:51
PROVIDERS: ATTEND Student in an Organized Health Care Education/Training Program
DX: D50.9 Iron deficiency anemia, unspecified (principal); Z88.1 Allergy status to other antibiotic agents
CPT/HCPCS: 96365; 96366; J1756

== ENCOUNTER → 2025-01-18 | Outpatient (CLI) | payer BC ==
[~2025-01-18] MED LIST changes: -ALBUTEROL SULFATE 2.5 MG/0.5 ML INH CONCENTRATE NEB SOLN INH PRN; -EPINEPHrine INJ 1 MG/ML 1ML AMP IM PRN; -diphenhydrAMINE 50 MG/ML VIAL IV PRN
== END ==
LOC: M WHC 12:23
DX: Z12.31 Encounter for screening mammogram for malignant neoplasm of breast (principal); R92.313 Mammographic fatty tissue density, bilateral breasts

== ENCOUNTER → 2025-02-09 | Outpatient (CLI) | payer BC | LOC: M RAD 06:52 | DX: Z12.2 Encounter for screening for malignant neoplasm of respiratory organs (principal); F17.211 Nicotine dependence, cigarettes, in remission; D35.01 Benign neoplasm of right adrenal gland; I25.10 Atherosclerotic heart disease of native coronary artery without angina pectoris ==

== ENCOUNTER 2025-03-01 11:44 | Emergency (ER) | payer BC ==
[~2025-03-01] VITALS: Ht 170.2 cm; Wt 85.9 kg
[2025-03-01 12:48] LABS: BASO # 0.1 10^3/uL (0.0-0.2); BASO % 0.8 % (0.0-1.0); EOS # 0.5 10^3/uL (0.0-0.5); EOS % 7.0 % (0.0-3.0); LYMPH # 2.1 10^3/uL (1.5-5.0); LYMPH % 29.3 % (24.0-44.0); MONO # 0.6 10^3/uL (0.0-0.8); MONO % 7.6 % (2.0-8.0); NEUTROPHILS # 4.0 10^3/uL (1.5-8.5); NEUTROPHILS % 55.0 % (36.0-66.0); PLATELET COUNT, AUTOMATED 317 10^3/uL (150-450)
[2025-03-01 13:01] LABS: KETONE, URINE AUTO RFX NEGATIVE (NEGATIVE); MUCUS, URINE RFX SMALL (NEGATIVE); NITRITE, URINE AUTO RFX NEGATIVE (NEGATIVE); RBC, URINE AUTO RFX 8 /HPF (0-3); SQUAM EPITHELIAL CELL UR AURFX 1 /HPF (0-6); WBC, URINE AUTO RFX 2 /HPF (0-3)
[2025-03-01 13:12] LABS: ALT/SGPT 31 U/L (7.0-40); AST/SGOT 14 U/L (<34); CALCIUM LEVEL 8.9 MG/DL (8.5-10.1); CARBON DIOXIDE LEVEL 29 MMOL/L (20-31); CHLORIDE LEVEL 102 MMOL/L (98-107); CREATININE FOR GFR 0.68 MG/DL (0.55-1.30); GLOMERULAR FILTRATION RATE > 90.0 (>51); POTASSIUM SERUM 4.6 MMOL/L (3.5-5.1); SODIUM LEVEL 139 MMOL/L (136-145)
[2025-03-01 13:31] LABS: LEUKOCYTE ESTERASE UR AUTO RFX TRACE (NEGATIVE)
[2025-03-01 17:06] VITALS: BP 176/91; TEMP 97; O2SAT 99
== END 2025-03-01 19:30 | disposition home or self-care (01) ==
LOC: M ED 11:44
DX: N93.9 Abnormal uterine and vaginal bleeding, unspecified (principal); E11.9 Type 2 diabetes mellitus without complications; Z88.1 Allergy status to other antibiotic agents; Z79.01 Long term (current) use of anticoagulants; Z79.899 Other long term (current) drug therapy; Z79.82 Long term (current) use of aspirin; Z79.4 Long term (current) use of insulin